=== PATIENT | female | born 1955 | race Caucasian/White ===

== ENCOUNTER → 2019-09-22 14:54 | Outpatient (BNVA) | payer MEDICARE, OTHER, SELFPAY | PROVIDERS: Family Provider Family Medicine; PCP Family Medicine; Visit Provider Nurse Practitioner Psychiatric/Mental Health | DX: F33.2 Major depressive disorder, recurrent severe without psychotic features (principal); F41.1 Generalized anxiety disorder; F17.210 Nicotine dependence, cigarettes, uncomplicated | CPT/HCPCS: 99214 ==

== ENCOUNTER 2019-10-05 14:01 | Observation (INO) | payer MEDICARE, OTHER, SELFPAY ==
[2019-10-05] VITALS (9 sets, daily range): BP systolic 142–165; BP diastolic 54–78; PULSE 95–107; RESP 16–22; TEMP 36.7–36.8; O2SAT 91–97; BMI 41.5
--- NOTE | 2019-10-05 14:08 | ED_ITS ---
Entered by Avelino Mondragon, acting as scribe for Long Lewis DO HPI - General Adult General: Chief complaint: General Medical Stated complaint: GEN WEAKNESS Time Seen by Provider: 10/05/19 14:12 History of Present Illness: HPI narrative: 63 yo female presents with general weakness. Pt states that she is a little short of breath. Pt states that she is tired as well. Pt states that she isn't normally using o2 but is requiring it at this time. Per EMS family told them that she is habing issues with her speech. Pt had a similar episode when she was on lyrica, pt was recently placed back on lyrica. Patient denies any productive cough has kind of a pursed lip breathing she states it is habit she was a little short of breath and when EMS seen her her oxygen sats were low started on 2 L/min. MD complaint: general weakness. Onset (ago): hour(s) Severity: moderate Quality: constant Relieving factors: none Exacerbating factors: none Associated symptoms: Reports dyspnea and weakness; Deny chest pain, malaise or rash Review of Systems Const: Denies: fever, chills, body aches, change in appetite, fatigue or malaise ENMT: Denies: throat pain, ear pain, nasal discharge or nasal congestion Card: Denies: chest pain, edema, shortness of breath on exertion or shortness of breath when lying down Resp: Reports: shortness of breath GI: Reports: abdominal pain : Denies: flank pain, difficulty urinating, painful urination, urinary frequency or urinary urgency Skin/Breast: Denies: rash or itching PFSH ED PFSH: Statuses (acute, chronic, etc) shown below reflect problem list status as previously entered and may not be historically accurate Medical History (Updated 10/05/19 @ 18:27 by Leeroy Ballard MD) Chronic pain (Acute) COPD (chronic obstructive pulmonary disease) (Acute) Diabetes (Acute) Generalized anxiety disorder (Acute) GERD (gastroesophageal reflux disease) (Acute) HTN (hypertension) (Acute) Hyperlipidemia (Acute) Major depressive disorder, recurrent severe without psychotic features (Acute) Nicotine dependence, cigarettes, uncomplicated (Acute) Peripheral neuropathy (Acute) Surgical History (Updated 10/05/19 @ 18:22 by Leeroy Ballard MD) Amputation of left great toe (Acute) Herniated gastric pouch, complication of bariatric surgery (Acute) History of ankle surgery (Acute) History of appendectomy (Acute) Family History Mother Diabetes Hypertension Other Stroke Social History Smoking and tobacco status: current every day smoker cigarettes Packs smoked per day: 1 Alcohol intake: current Alcohol intake frequency: holidays/special occasions only Substance/Drug Use: never Lives independently: Yes Household members: other Details: ROOMMATE Marital status: / Current occupational status: disabled History of recent travel: No Physical Exam Const: COMMON NORMALS: no apparent distress GENERAL APPEARANCE: cooperative and comfortable ORIENTATION/CONSCIOUSNESS: Yes awake, Yes oriented to person, Yes oriented to place and Yes oriented to time HENMT: COMMON NORMALS: normocephalic, head/scalp atraumatic, hearing grossly normal bilaterally, external ears normal, EAC's normal, TM's normal bilaterally, nasal mucous membranes and turbinates normal, moist oral mucous membranes and oropharynx normal HEAD & SCALP: normocephalic and atraumatic NOSE: nasal mucous membranes and turbinates normal EXTERNAL EAR: Yes external ears normal EXTERNAL AUDITORY CANAL: EAC's normal TYMPANIC MEMBRANE: TM's normal bilaterally Eye: COMMON NORMALS: PERRL, EOMs intact bilaterally, conjunctivae normal and no scleral icterus CONJUNCTIVA: Yes conjunctivae normal PUPIL: Yes PERRL Neck/C-Spine: COMMON NORMALS: full ROM, no lymphadenopathy, supple and no JVD Lymph: LYMPHATIC: no lymphadenopathy noted and no lymphedema noted Resp: COMMON NORMALS: normal respiratory effort, no retractions, no use of accessory muscles and clear to auscultation bilaterally AUSCULTATION: clear to auscultation bilaterally Cardio: COMMON NORMALS: no JVD, regular rate, regular rhythm and no murmurs RATE: regular rate RHYTHM: regular rhythm GI: COMMON NORMALS: soft to palpation and no hepatosplenomegaly AUSCULTATION: Yes normoactive bowel sounds PALPATION: Yes soft, No tender, No guarding and Yes no hepatosplenomegaly Extremity: COMMON NORMALS: normal to inspection, normal capillary refill, no clubbing, cyanosis or edema, no calf tenderness and no pedal edema Neuro: SENSORIUM/ORIENTATION: Yes oriented to person, Yes oriented to place and Yes oriented to time Skin: COMMON NORMALS: no rashes or lesions noted GENERAL SKIN EXAM: no rashes or lesions noted Course ED course: Patient has multiple risk factors and a high heart score. She also has an intermediate troponin. At this point I think she requires observation for further evaluation. She has relatively subtle symptoms with essentially only having a episodic shortness of breath. She does have poor R wave progression on her EKG but no other significant finding discussed with Dr. Salguero he will place her on observation for rule out. Vital Signs: Vital signs: Vital Signs Temperature 99.1 F 10/06/19 04:00 Pulse Rate 103 H 10/06/19 04:00 Respiratory Rate 20 H 10/06/19 04:00 Blood Pressure 150/72 10/06/19 04:00 Pulse Oximetry 91 10/06/19 04:00 [facility] - General Adult Lab Data: Labs: Lab Results 10/05/19 10/05/19 10/05/19 Range/Units 14:35 14:35 14:35 WBC 13.8 H (4.0-10.0) 10^3/ uL RBC 5.12 (4.1-5.3) 10^6/u L Hgb 15.5 H (11.5-15.3) g/dL Hct 49.2 H (37.0-47.0) % MCV 96.1 (81-99) fL MCH 30.3 (28.0-34.0) pg MCHC 31.5 (30.0-36.0) g/dL RDW 14.6 (12.1-15.1) % Plt Count 226 (130-400) 10^3/c mm MPV 10.2 (7.4-10.4) fL Neut % (Auto) 78.9 % Lymph % (Auto) 12.6 % [place] % (Auto) 7.5 % Eos % (Auto) 0.4 % Baso % (Auto) 0.3 % Neut # (Auto) 10.9 H (1.8-7.7) 10^3/u L Lymph # (Auto) 1.7 (0.8-4.8) 10^3/u L [place] # (Auto) 1.0 H (0.2-0.9) 10^3/u L Eos # (Auto) 0.1 (0.0-0.8) 10^3/u L Baso # (Auto) 0.0 (0.0-0.1) 10^3/u L Nucleated RBC % (a uto) 0 % Nucleated RBCs # 0.0 /100WBC Sodium 138 (136-145) mmol/L Potassium 4.9 (3.5-5.1) mmol/L Chloride 99 (98-107) mmol/L Carbon Dioxide 26 (22-29) mmol/L Anion Gap 17.9 (5-19) BUN 25 H (8-23) mg/dL Creatinine 1.1 H (0.5-0.9) mg/dL GFR Calculation 50.2 L (90-130) mL/min Glucose 263 H (65-115) mg/dL Calcium 10.4 (8.5-10.5) mg/dL Total Bilirubin 0.4 (0.15-1.2) mg/dL AST 15 (0-32) U/L ALT 14 (0-33) U/L Alkaline Phosphata se 83 (35-105) IU/L Troponin T Baselin e 33 H (0-10) ng/mL Troponin T 120 Min [place] (0-10) ng/mL Delta Troponin T (0-10) ABS# Total Protein 6.9 (6.6-8.7) g/dL Albumin 4.0 (3.5-5.2) g/dL Globulin 2.9 (1.3-4.6) g/dL Influenza Type A A g (Negative) POC Influenza B Ag (Negative) 10/05/19 10/05/19 Range/Units 14:45 16:22 WBC (4.0-10.0) 10^3/ uL RBC (4.1-5.3) 10^6/u L Hgb (11.5-15.3) g/dL Hct (37.0-47.0) % MCV (81-99) fL MCH (28.0-34.0) pg MCHC (30.0-36.0) g/dL RDW (12.1-15.1) % Plt Count (130-400) 10^3/c mm MPV (7.4-10.4) fL Neut % (Auto) % Lymph % (Auto) % [place] % (Auto) % Eos % (Auto) % Baso % (Auto) % Neut # (Auto) (1.8-7.7) 10^3/u L Lymph # (Auto) (0.8-4.8) 10^3/u L [place] # (Auto) (0.2-0.9) 10^3/u L Eos # (Auto) (0.0-0.8) 10^3/u L Baso # (Auto) (0.0-0.1) 10^3/u L Nucleated RBC % (a uto) % Nucleated RBCs # /100WBC Sodium (136-145) mmol/L Potassium (3.5-5.1) mmol/L Chloride (98-107) mmol/L Carbon Dioxide (22-29) mmol/L Anion Gap (5-19) BUN (8-23) mg/dL Creatinine (0.5-0.9) mg/dL GFR Calculation (90-130) mL/min Glucose (65-115) mg/dL Calcium (8.5-10.5) mg/dL Total Bilirubin (0.15-1.2) mg/dL AST (0-32) U/L ALT (0-33) U/L Alkaline Phosphata se (35-105) IU/L Troponin T Baselin e (0-10) ng/mL Troponin T 120 Min [place] 37.43 H (0-10) ng/mL Delta Troponin T 4.43 (0-10) ABS# Total Protein (6.6-8.7) g/dL Albumin (3.5-5.2) g/dL Globulin (1.3-4.6) g/dL Influenza Type A A g Negative (Negative) POC Influenza B Ag Negative (Negative) Discharge Plan Discharge Patient Disposition: Placed in Observation Admit Provider: Leeroy Ballard Clinical Impression: Acute dyspnea, Diabetes, Elevated troponin level Condition: Stable Referrals: Bonita Villasenor MD [Primary Care Provider] - Discharge Date/Time: 10/05/19 20:05 Coding Level of Care Code ED Product Technician for g Fwd Exam Problem Focused The documentation recorded by the Giancarlo simons Kialy, accurately reflects the service I personally performed and the decisions made by Debbie wagner Curtis L, DO Oct 05, 2019 14:01
--- NOTE | 2019-10-05 14:12 | ECG_ITS ---
Measurements Intervals [place] Rate: 96 P: 58 [place]: 176 QRS: -36 QRSD: 94 T: 75 QT: 338 QTc: 429 SINUS RHYTHM LEFT AXIS DEVIATION [QRS AXIS < -30] MINIMAL VOLTAGE CRITERIA FOR LVH, CONSIDER NORMAL VARIANT [MEETS CRITERIA IN OF: R(aVL), S(V1), R(V5), R(V5/V6)+S(V1)] ANTERIOR MYOCARDIAL INFARCTION , OF INDETERMINATE AGE [40+ ms Q WAVE AND/OR ST/T ABNORMALITY IN V3/V4] Compared to ECG 12/20/2018 19:14:55 No significant changes Electronically Signed On 10-05-2019 20:56:16 MAIL OFFICER by Rebecca Maldonado M.D. [id number]
--- NOTE | 2019-10-05 14:13 | XRR_ITS ---
PROCEDURE INFORMATION: Exam: XR Chest, 1 View Exam date and time: 10/05/2019 2:26 PM Age: 63 years old Clinical indication: Cough and dyspnea; Smoker's cough; Additional info: Dyspnea/cough TECHNIQUE: Imaging protocol: XR of the chest Views: 1 view. COMPARISON: CR Chest 1 [place] [id number] 12/20/2018 3:57 PM FINDINGS: Lungs: Somewhat reduced lung volumes with associated bronchovascular crowding. No confluent infiltrate evident. Pleural space: Unremarkable. No pleural effusion. No pneumothorax. Heart/Mediastinum: Mild cardiomegaly. Bones/joints: Unremarkable. XR/XR chest 1V portable [id number] IMPRESSION: Somewhat reduced lung volumes with associated bronchovascular crowding. No confluent infiltrate evident.
[2019-10-05 14:49] LABS: Basophils % 0.3 %; Eosinophils # 0.1 10^3/uL (0.0-0.8); Eosinophils % 0.4 %; Hematocrit 49.2 % (37.0-47.0); Hemoglobin 15.5 g/dL (11.5-15.3); Lymphocytes # 1.7 10^3/uL (0.8-4.8); Lymphocytes % 12.6 %; Mean Corpuscular HGB Conc 31.5 g/dL (30.0-36.0); Mean Corpuscular Hemoglobin 30.3 pg (28.0-34.0); Mean Corpuscular Volume 96.1 fL (81-99); Mean Platelet Volume 10.2 fL (7.4-10.4); Monocytes % 7.5 %; Neutrophils # 10.9 10^3/uL (1.8-7.7); Neutrophils % 78.9 %; Nucleated Red Blood Cells % 0 %; Platelet Count 226 10^3/cmm (130-400); Red Blood Count 5.12 10^6/uL (4.1-5.3); Red Cell Distribution Width 14.6 % (12.1-15.1); White Blood Count 13.8 10^3/uL (4.0-10.0)
[2019-10-05 15:02] LABS: Troponin(5th) Baseline 33 ng/mL (0-10)
[2019-10-05 15:03] LABS: Alanine Aminotransferase 14 U/L (0-33); Alkaline Phosphatase 83 IU/L (35-105); Anion Gap 17.9 (5-19); Aspartate Amino Transferase 15 U/L (0-32); Blood Urea Nitrogen 25 mg/dL (8-23); Calcium 10.4 mg/dL (8.5-10.5); Carbon Dioxide 26 mmol/L (22-29); Chloride 99 mmol/L (98-107); Creatinine Clr Calc Pharmacy 65.7468; Globulin 2.9 g/dL (1.3-4.6); Glomerular Filtration Rate 50.2 mL/min (90-130); Glucose 263 mg/dL (65-115); Potassium 4.9 mmol/L (3.5-5.1); Sodium 138 mmol/L (136-145); Total Bilirubin 0.4 mg/dL (0.15-1.2); Total Protein 6.9 g/dL (6.6-8.7)
[2019-10-05 15:27] LABS: Influenza A by IFA Negative (Negative); Influenza B by IFA Negative (Negative)
[2019-10-05] MEDS: ipratropium-albuterol 3 mL Neb INHALATION ×2 (15:36→21:55)
[2019-10-05] MEDS: azithromycin 500 MG in sodium chloride 0.9% 250 ML 250 MG IV (15:45)
[2019-10-05] MEDS: cefTRIAXone 1,000 MG in sodium chloride 0.9% (plus) 50 ML 100 MG IV (15:45)
--- NOTE | 2019-10-05 16:12 | ECG_ITS ---
Measurements Intervals [place] Rate: 98 P: 66 MS: 180 QRS: -24 QRSD: 97 T: 75 QT: 337 QTc: 431 SINUS RHYTHM POSSIBLE ANTERIOR MYOCARDIAL INFARCTION [30 ms Q WAVE IN V3/V4, OR R < 0.2 mV IN , OF INDETERMINATE AGE WARNING: DATA QUALITY MAY AFFECT INTERPRETATION Compared to ECG 12/20/2018 19:14:55 Left-axis deviation no longer present Myocardial infarct finding still present Electronically Signed On 10-05-2019 21:01:05 SERVICE DESK ANALYST by Rebecca Maldonado M.D. [id number]
[2019-10-05 16:55] LABS: Troponin 5 2HR 37.43 ng/mL (0-10); Troponin 5 2HR Delta 4.43 ABS# (0-10)
--- NOTE | 2019-10-05 18:16 | P.HP_ITS ---
Providers/Chief Complaint Primary Care Provider: Bonita Villasenor MD Chief Complaint: GEN WEAKNESS History of Present Illness Carol Bustos is a 63 year old female that presents to the emergency department with shortness of breath. She states she has been short of breath for the last several months. She denies any fevers or cough. She reports her lower extremities are swelling. She has had no chest discomfort. She reports she is more short of breath with exertion. She has had no nausea. She reports she feels overall weak. Review of Systems General: Reports: 10 or more systems reviewed and unremarkable except in HPI and below Const: Denies: fever or chills Eyes: Denies: blurry vision ENMT: Denies: throat pain Card: Reports: shortness of breath on exertion; Denies: chest pain Resp: Reports: shortness of breath; Denies: productive cough GI: Denies: abdominal pain : Denies: flank pain Musc: Reports: back pain Skin/Breast: Denies: rash Neuro: Denies: headache Psych: Reports: anxiety and depression Endo: Denies: excessive urination Christopher/Lymph: Denies: easy bruising All/Imm: Denies: hives Medications/Allergies Home Medications Medication Instructions Recorded Confirmed Last Taken Type Abilify 10 mg PO QAM 10/05/19 10/05/19 Unknown History Allergies Allergy/AdvReac Type Severity Reaction Status Date / Time No Known Allergies Allergy Verified 09/22/19 15:31 PFSH Acute PFSH: Statuses (acute, chronic, etc) shown below reflect problem list status as previously entered and may not be historically accurate Medical History (Updated 10/05/19 @ 18:27 by Leeroy Ballard MD) Chronic pain COPD (chronic obstructive pulmonary disease) Diabetes Generalized anxiety disorder GERD (gastroesophageal reflux disease) HTN (hypertension) Hyperlipidemia Major depressive disorder, recurrent severe without psychotic features Nicotine dependence, cigarettes, uncomplicated Peripheral neuropathy Surgical History (Updated 10/05/19 @ 18:22 by Lereoy Ballard MD) Amputation of left great toe Herniated gastric pouch, complication of bariatric surgery History of ankle surgery History of appendectomy Family History Mother Diabetes Hypertension Other Stroke Social History Smoking and tobacco status: current every day smoker cigarettes Packs smoked per day: 1 Alcohol intake: current Alcohol intake frequency: holidays/special occasions only Lives independently: Yes Household members: other Details: ROOMMATE Marital status: / Current occupational status: disabled History of recent travel: No Vitals/I&O/Wt Last Vital Signs Temp 98.0 F 10/05/19 14:07 Pulse 98 10/05/19 15:44 Resp 18 10/05/19 15:30 BP 142/72 10/05/19 14:07 Pulse Ox 95 10/05/19 15:30 Weight last 48 hrs Weight 113.398 kg Physical Exam Narrative: EXAM NARRATIVE: General exam demonstrates an obese white female, occasionally puffing her lips out when she breathes out, in no apparent distress HEENT: Conjunctive a are injected. Oropharynx is clear Neck is supple no lymphadenopathy or thyromegaly Cardiovascular regular rate and rhythm without murmur Lungs diminished breath sounds bilaterally. A few rhonchi are noted on the left Abdomen is soft with positive bowel sounds, no obvious organomegaly, obese was deferred Extremities 1+ edema bilaterally, no cyanosis or clubbing Neuro no focal deficits Skin no rash Data : 10/05/19 14:35 10/05/19 14:35 Other data: Previous echocardiogram in 2018 demonstrated 3/4 diastolic dysfunction and EF of 65% Troponin is 33, repeat 37 Influenza negative EKG demonstrates poor R wave progression with Q's anteriorly. Left axis deviation. Chest x-ray demonstrates crowding and no obvious infiltrate A&P Assessment and plan (1) Acute dyspnea: I think this is related to mild acute diastolic heart failure. Status: Acute Code(s): R06.00 - Dyspnea, unspecified (2) Elevated troponin level: Likely type II but with abnormal EKG demonstrating concern of previous anterior myocardial infarction, previous CTA demonstrating significant calcification nuclear stress test is appropriate in this diabetic with neuropathy. Arrange for Lexiscan sestami Status: Acute Code(s): R79.89 - Other specified abnormal findings of blood chemistry (3) Nicotine dependence, cigarettes, uncomplicated: Encourage cessation Status: Acute Code(s): F17.210 - Nicotine dependence, cigarettes, uncomplicated (4) Leukocytosis: Likely secondary to acute events. As of now no obvious infection is noted Status: Acute Code(s): D72.829 - Elevated white blood cell count, unspecified (5) Obesity: Encourage weight loss Status: Acute Code(s): E66.9 - Obesity, unspecified (6) Acute diastolic heart failure: Diuresis with Lasix 40 mg IV every 12 hours Check echocardiogram Status: Acute Code(s): I50.31 - Acute diastolic (congestive) heart failure Additional A&P Information COPD, no evidence for acute exacerbation. Will provide pulmonary toilet Type 2 diabetes, will provide sliding scale insulin GERD Depression/anxiety Hyperlipidemia Chronic pain Multiple other medical problems as outlined in past medical history DVT prophylaxis with Lovenox Full code Attestations Medical Necessity Statement*: Will need less than 2 midnight stay for evaluation and treatment of elevated troponin and dyspnea Coding Level of Care Code Acute Quality Assurance Advisor for Win Stewart Diagnoses Acute dyspnea R06.00 Elevated troponin level R79.89 Nicotine dependence, cigarettes, uncomplicated F17.210 Leukocytosis D72.829 Obesity E66.9 Acute diastolic heart failure I50.31
--- NOTE | 2019-10-05 20:12 | ECG_ITS ---
Measurements Intervals [place] Rate: 103 P: 67 [place]: 185 QRS: -33 QRSD: 98 T: 76 QT: 328 QTc: 431 SINUS TACHYCARDIA MARKED LEFT AXIS DEVIATION [QRS AXIS < -30] LEFT VENTRICULAR HYPERTROPHY AND ST-T CHANGE [VOLTAGE CRITERIA PLUS ST/T ABNORMALITY] POSSIBLE ANTERIOR MYOCARDIAL INFARCTION [30 ms Q WAVE IN V3/V4, OR R < 0.2 mV IN V4], OF INDETERMINATE AGE Compared to ECG 10/05/2019 15:50:27 Left-axis deviation now present Left ventricular hypertrophy now present ST (T wave) deviation now present Sinus rhythm no longer present Myocardial infarct finding still present Electronically Signed On 10-06-2019 20:42:02 POLICE DETENTION ATTENDANT by Jony Keene M.D. [id number]
[2019-10-05 20:48] LABS: Troponin 5 6HR 41.78 ng/L (0-10); Troponin 5 6HR Delta 8.78 ng/L (0-12)
[2019-10-05] MEDS: atorvastatin 40 mg Tablet 20 MG PO (21:13)
[2019-10-05] MEDS: aspirin 81 mg EC Tablet PO (21:13)
[2019-10-05] MEDS: enoxaparin 40 mg/0.4 mL Syringe SUBCUT (21:14)
[2019-10-05 21:23] LABS: Glucose Point of Care 233 mg/dL (70-110)
[2019-10-05 21:38] LABS: Add On to Lab Order(s) Added; NT Pro B Type Natriuretic Pept 137 pg/mL (0-125); Thyroid Stimulating Hormone 0.67 uIU/mL (0.27-4.20)
[2019-10-05] MEDS: FUROsemide 10 mg/mL SDV 4mL 40 MG IVP (21:40)
[2019-10-06] VITALS (9 sets, daily range): BP systolic 130–157; BP diastolic 68–79; PULSE 85–116; RESP 16–22; TEMP 36.8–37.3; O2SAT 86–95
[2019-10-06] MEDS: ipratropium-albuterol 3 mL Neb INHALATION ×2 (02:33→09:45)
[2019-10-06 05:21] LABS: Basophils % 0.3 %; Eosinophils # 0.1 10^3/uL (0.0-0.8); Eosinophils % 0.8 %; Hematocrit 45.9 % (37.0-47.0); Hemoglobin 14.8 g/dL (11.5-15.3); Lymphocytes % 13.2 %; Mean Corpuscular HGB Conc 32.2 g/dL (30.0-36.0); Mean Corpuscular Hemoglobin 30.2 pg (28.0-34.0); Mean Corpuscular Volume 93.7 fL (81-99); Mean Platelet Volume 10.7 fL (7.4-10.4); Monocytes % 6.9 %; Neutrophils # 11.7 10^3/uL (1.8-7.7); Neutrophils % 78.5 %; Nucleated Red Blood Cells % 0 %; Platelet Count 240 10^3/cmm (130-400); Red Cell Distribution Width 14.5 % (12.1-15.1); White Blood Count 14.9 10^3/uL (4.0-10.0)
[2019-10-06 05:47] LABS: Anion Gap 14.1 (5-19); Blood Urea Nitrogen 23 mg/dL (8-23); Calcium 10.7 mg/dL (8.5-10.5); Carbon Dioxide 30 mmol/L (22-29); Chloride 97 mmol/L (98-107); Glomerular Filtration Rate 63.2 mL/min (90-130); Glucose 318 mg/dL (65-115); Osmolality Calculated 293 mOsm/kg (285-295); Potassium 4.1 mmol/L (3.5-5.1); Sodium 137 mmol/L (136-145)
[2019-10-06] MEDS: ARIPiprazole 10 mg Tablet PO (06:07)
[2019-10-06] MEDS: venlafaxine ER (24HR) 150 mg Capsule PO (06:07)
[2019-10-06] MEDS: venlafaxine ER (24HR) 75 mg Capsule PO (06:07)
[2019-10-06] MEDS: HYDROcodone-acetaminophen 10-325 mg Tablet 1 TAB PO ×2 (06:08→10:58)
--- NOTE | 2019-10-06 06:28 | PC.NURSE ---
Patient came up from ER with a diet Dr. Medina. I spilled it in patient room at 2200 and there was nothing left. Patient stated she drank some at 0200. Therefore, stress test will not be able to be completed today.
[2019-10-06 06:35] LABS: Glucose Point of Care 304 mg/dL (70-110)
--- NOTE | 2019-10-06 06:56 | PC.NURSE ---
STRESS TEST NOTE This nurse called Med Surg at 0600 to see if the patient had been NPO since midnight and no caffeine intake for the last 12 hours. The female that answered the phone states to Shamir, the nurse, did you know 269 had a stress test . The voice in the background stated no . When questioned on her caffeine intake the voice in the background stated she's been drinking Diet Dr. Medina all night . This nurse told the female that answered the phone that we would have to cancel the Lexiscan sestamibi stress test today and to please notify Dr. Ballard. At 0606 Shamir, nurse, called this nurse and stated that the patient had not had caffeine intake since 2200 last night because the patient had spilled it on the floor and Shamir had cleaned it up and not given any more soda all night. This nurse reiterated to Shamir how important it was to know exactly when the last caffeine intake was. Shamir again stated the about statement. Kati Dueñas [employer], was notified that he could inject the patient after asking her in person about her caffeine intake through the night. At 0619 Kati Dueñas [employer], called this nurse from med surg and stated that the patient had a cup with a straw in it on the bedside table. Spenser asked her when she had drank last and what it was. The patient stated that her last drink was 0200 and that it was Diet Dr. Medina. This nurse told Spenser that the Lexiscan sestamibi stress test would have to be cancelled today due to caffeine intake. Pau Singh RN, then called Shamir on Med Surg and tole her that the Lexiscan sestamibi stress test would be cancelled and to make sure she let Dr. Ballard know. At [address]709 Dr. Ballard was notified by this nurse. He had not received a phone call from the Med Surg nurse. He requested that the Lexiscan sestamibi stress test be done at 1400 today as the patient was not able to do a treadmill stress test and was not a candidate for an outpatient test. Kati Chong [employer], was notified of the 1400 stress along with the CDL Nurse, Pau Singh RN. This nurse then called Med Surg and spoke with Gail. Gail was given orders to make the patient NPO except water. A voice mail was left on Dr. Tena phone.
[2019-10-06] MEDS: losartan 50 mg Tablet 100 MG PO (08:17)
[2019-10-06] MEDS: aspirin 81 mg EC Tablet PO (08:18)
[2019-10-06] MEDS: amlodipine 10 mg Tablet PO (08:18)
[2019-10-06] MEDS: montelukast sodium 10 mg Tablet PO (08:18)
[2019-10-06] MEDS: hydroCHLOROthiazide 25 mg Tablet PO (08:19)
[2019-10-06] MEDS: metoprolol tartrate 50 mg Tablet PO (08:19)
[2019-10-06] MEDS: FUROsemide 10 mg/mL SDV 4mL 40 MG IVP (08:20)
--- NOTE | 2019-10-06 11:08 | PM.DCS ---
Discharge Providers Date of Admission: 10/05/19 18:05 Date of Discharge: October 06, 2019 Attending Provider at Admission: Leeroy Ballard MD Attending Provider at Discharge: Leeroy Ballard MD Primary Care Provider: Bonita Villasenor MD Diagnoses at Discharge Discharge Diagnosis (1) Acute dyspnea: Status: Acute Problem details: Resolved (2) Elevated troponin level: Status: Acute Problem details: Outpatient stress test per patient request (3) Nicotine dependence, cigarettes, uncomplicated: Status: Acute Problem details: Counseled on cessation (4) Leukocytosis: Status: Acute Problem details: Follow-up CBC 1 week. (5) Obesity: Status: Acute Problem details: Unchanged (6) Acute diastolic heart failure: Status: Acute Problem details: Increase Lasix slightly to 20 mg Reason for Visit Reason for Visit: Reason For Visit: GEN WEAKNESS Hospital Course Discharge Summary: Carol is a 63-year-old white female who presents to the hospital through the ER. She reported she felt very weak, somewhat disoriented, and short of breath. During her work-up her troponin was slightly elevated. She was requiring a very small amount of oxygen. EKG demonstrated poor R wave progression so concern of cardiac disease was present. She was placed in an observation category and a nuclear stress test was ordered for the following day. The next day she reported she was back to baseline. Her boyfriend was present and reported she was back to baseline. They report she took a Lyrica yesterday, and that she has this reaction when she takes it. She takes it as needed and took about 300 mg thinking this might help her pain as she has this prescribed. She refused to do the stress test today, reporting she would do this as an outpatient only. She requested discharge and this was arranged. Risks and benefits of and/or disability were discussed. She was agreeable to getting a home oxygen evaluation prior to discharge. She denied any chest discomfort. She reported no shortness of breath. Physical Exam Narrative: EXAM NARRATIVE: Vascular regular in rhythm without murmur Lungs diminished breath sounds but clear Abdomen is soft with positive bowel sounds Extremities no cyanosis clubbing or edema Discharge Data Data Completed and Pending: Completed Studies During Hospitalization Category Date Time Status XR chest 1V kevin ble [id number] Stat Exams 10/05/19 14:13 Completed Pending at discharge Category Date Time Status Cardiac Stress Te st MIBI [Sestamibi Stress Test Reque st Exams 10/06/19 07:31 Ordered ] Routine Sestamibi Stress Test Request Routi ne Exams 10/05/19 20:51 Ordered Urinalysis Stat Lab 10/05/19 16:09 Uncollected CV echo complete* [id number] Routine Ultrasound 10/06/19 20:51 Taken Labs from last 24 hours 10/06/19 10/06/19 10/06/19 06:19 04:30 04:30 WBC 14.9 H RBC 4.90 Hgb 14.8 Hct 45.9 MCV 93.7 MCH 30.2 MCHC 32.2 RDW 14.5 Plt Count 240 MPV 10.7 H Neut % (Auto) 78.5 Lymph % (Auto) 13.2 [place] % (Auto) 6.9 Eos % (Auto) 0.8 Baso % (Auto) 0.3 Neut # (Auto) 11.7 H Lymph # (Auto) 2.0 [place] # (Auto) 1.0 H Eos # (Auto) 0.1 Baso # (Auto) 0.0 Nucleated RBC % (a uto) 0 Nucleated RBCs # 0.0 Sodium 137 Potassium 4.1 Chloride 97 L Carbon Dioxide 30 H Anion Gap 14.1 BUN 23 Creatinine 0.9 GFR Calculation 63.2 L Glucose 318 H POC Glucose 304 Calculated Osmolal ity 293 Calcium 10.7 H Total Bilirubin AST ALT Alkaline Phosphata se Troponin I 6 Hour Troponin I Hi Sens Del Troponin T Baselin e Troponin T 120 Min [place] Troponin T NT-Pro-B Natriuret Pep Total Protein Albumin Globulin TSH Influenza Type A A g POC Influenza B Ag 10/05/19 10/05/19 10/05/19 21:09 20:27 20:27 WBC RBC Hgb Hct MCV MCH MCHC RDW Plt Count MPV Neut % (Auto) Lymph % (Auto) [place] % (Auto) Eos % (Auto) Baso % (Auto) Neut # (Auto) Lymph # (Auto) [place] # (Auto) Eos # (Auto) Baso # (Auto) Nucleated RBC % (a uto) Nucleated RBCs # Sodium Potassium Chloride Carbon Dioxide Anion Gap BUN Creatinine GFR Calculation Glucose POC Glucose 233 Calculated Osmolal ity Calcium Total Bilirubin AST ALT Alkaline Phosphata se Troponin I 6 Hour 41.78 H Troponin I Hi Sens Del 8.78 Troponin T Baselin e Troponin T 120 Min [place] Troponin T NT-Pro-B Natriuret Pep 137 H Total Protein Albumin Globulin TSH 0.67 Influenza Type A A g POC Influenza B Ag 10/05/19 10/05/19 10/05/19 16:22 14:45 14:35 WBC RBC Hgb Hct MCV MCH MCHC RDW Plt Count MPV Neut % (Auto) Lymph % (Auto) [place] % (Auto) Eos % (Auto) Baso % (Auto) Neut # (Auto) Lymph # (Auto) [place] # (Auto) Eos # (Auto) Baso # (Auto) Nucleated RBC % (a uto) Nucleated RBCs # Sodium Potassium Chloride Carbon Dioxide Anion Gap BUN Creatinine GFR Calculation Glucose POC Glucose Calculated Osmolal ity Calcium Total Bilirubin AST ALT Alkaline Phosphata se Troponin I 6 Hour Troponin I Hi Sens Del Troponin T Baselin e 33 H Troponin T 120 Min [place] 37.43 H Delta Troponin T 4.43 NT-Pro-B Natriuret Pep Total Protein Albumin Globulin TSH Influenza Type A A g Negative POC Influenza B Ag Negative 10/05/19 10/05/19 14:35 14:35 WBC 13.8 H RBC 5.12 Hgb 15.5 H Hct 49.2 H MCV 96.1 MCH 30.3 MCHC 31.5 RDW 14.6 Plt Count 226 MPV 10.2 Neut % (Auto) 78.9 Lymph % (Auto) 12.6 [place] % (Auto) 7.5 Eos % (Auto) 0.4 Baso % (Auto) 0.3 Neut # (Auto) 10.9 H Lymph # (Auto) 1.7 [place] # (Auto) 1.0 H Eos # (Auto) 0.1 Baso # (Auto) 0.0 Nucleated RBC % (a uto) 0 Nucleated RBCs # 0.0 Sodium 138 Potassium 4.9 Chloride 99 Carbon Dioxide 26 Anion Gap 17.9 BUN 25 H Creatinine 1.1 H GFR Calculation 50.2 L Glucose 263 H POC Glucose Calculated Osmolal ity Calcium 10.4 Total Bilirubin 0.4 AST 15 ALT 14 Alkaline Phosphata se 83 Troponin I 6 Hour Troponin I Hi Sens Del Troponin T Baselin e Troponin T 120 Min [place] Troponin T NT-Pro-B Natriuret Pep Total Protein 6.9 Albumin 4.0 Globulin 2.9 TSH Influenza Type A A g POC Influenza B Ag Vitals: Last Vital Signs Temp 98.2 F 10/06/19 10:57 Pulse 88 10/06/19 10:57 Resp 18 10/06/19 10:57 BP 133/79 10/06/19 10:57 Pulse Ox 92 10/06/19 10:57 Discharge Plan Discharge Patient Disposition: Home, Self-Care Condition: Stable Prescriptions: New furosemide [Lasix] 20 mg tablet 20 mg PO DAILY Qty: 30 RF: 0 Continued venlafaxine [Effexor XR] 150 mg capsule,extended release 24hr 150 mg PO QAM RF: 0 venlafaxine [Effexor XR] 75 mg capsule,extended release 24hr 75 mg PO QAM RF: 0 trazodone 100 mg tablet 100 mg PO .COMPLEX RF: 0 metformin 500 mg tablet extended release 24 hr 1,000 mg PO DAILY RF: 0 atorvastatin 10 mg tablet 10 mg PO DAILY RF: 0 amlodipine 10 mg tablet 10 mg PO DAILY RF: 0 losartan-hydrochlorothiazide 100-25 mg tablet 1 tab PO DAILY RF: 0 metoprolol tartrate 50 mg tablet 50 mg PO DAILY RF: 0 potassium chloride 10 mEq tablet extended release 10 meq PO DAILY RF: 0 aspirin [Adult Low Dose Aspirin] 81 mg tablet,delayed release (DR/EC) 81 mg PO QDAY RF: 0 montelukast [Singulair] 10 mg tablet 10 mg PO DAILY RF: 0 Humulin N NPH U-100 Insulin 100 unit/mL suspension See Rx Instructions SUBCUT BID RF: 0 insulin lispro [Humalog U-100 Insulin] 100 unit/mL solution See Rx Instructions SUBCUT TID RF: 0 Toujeo Max U-300 SoloStar 300 unit/mL (3 mL) insulin pen 100 unit SUBCUT .QHS RF: 0 Bydureon 2 mg/0.65 mL pen injector 2 mg SUBCUT .WEEKLY RF: 0 hydrocodone-acetaminophen 10-325 mg tablet 1 tab PO QID PRN (Reason: Pain) RF: 0 Abilify 10 mg tablet 10 mg PO QAM RF: 0 Discontinued pregabalin [Lyrica] 300 mg capsule 300 mg PO BID RF: 0 furosemide [Lasix] 20 mg tablet 10 mg PO DAILY RF: 0 Other Ambulatory Orders: Sestamibi Stress Test Request (Routine) Timeframe: 1 Week Facility: [facility] - Location: Cardiac Diagnostic Laboratory Ordered By: Leeroy Ballard Referrals: Bonita Villasenor MD [Primary Care Provider] - 1-3 days (CBC, BMP 1 week through primary care provider Arranging outpatient nuclear stress test, report to primary care provider) Discharge Diet: Diabetic Discharge Activity: Resume usual activity Activity Restrictions/Additional Instructions: No smoking. Did not take Lyrica. Keep follow-up for outpatient nuclear stress test. Follow-up with your primary care provider for results. Home oxygen evaluation prior to discharge. 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
--- NOTE | 2019-10-06 11:12 | PC.NURSE ---
Pt refused test Notified by DR Ballard that pt is refusing stress test today and wants done as outpatient. Stress test cancelled for today.
[2019-10-06 11:37] LABS: Glucose Point of Care 400 mg/dL (70-110)
--- NOTE | 2019-10-06 12:44 | DCPLANNER ---
[employer] Etcher went into the room to set up 02 for this pt. Both pt and Spouse states that she already has it and has for a couple of years. Spouse adds that she has everything she needs, neither knew the company. They can't remember but states that it was set up for her when she was d/c'd from the hospital in [place] awwyle back.
--- NOTE | 2019-10-06 12:53 | PC.CHAP ---
Pastoral Care Encounter/Spiritual Assessment Type of Contact [] Declined horse trekking guide visit [] Patient/Family/Request visit [] Outpatient visit [] Follow-up visit [] Physician referral [] Code/Alert [x] Routine visit [] Staff referral [] Actively dying [] Patient sleeping [] Family support [] [] Out of room [] Palliative care [] [] Receiving care in room [] Pre-surgical visit [] Trauma [] Long length of stay [] ICU visit [] Other: Relational/Emotional Strength [x] Patient feels connected with others/family/visitors/staff [] Distress [] Loneliness/isolation [] Abandonment Spirituality of Patient [x] Person of Tamie [x] Attends Congregation of their Tamie [x] Believes in Prayer [x] Reads Bible or Restoration materials [] There are Spiritual issues to be addressed Fraud Prevention Analyst Interventions [x] Prayer [x] Active listening [x] Non-anxious presence [x] Spiritual/emotional support [] Crisis/trauma care [x] Spiritual counseling [] Bereavement support [] Provided bereavement packet [] Provided Bible/devotional materials [] Provided toy/stuffed animal, coloring book to patient or family member [] Provided Communion [] Anointing/[place] [] Salvation [] Completed spiritual assessment [] Other: Impact on Illness or Injury [] Angry [] Fearful [] Anxious [] Often cries [] Exhaustion [] Unable to work [] Unable to attend faith [] Unable to walk/stand [] Unable to read [] Unable to drive [] Unable to eat/drink [] Unable to sleep [] Unable to be with family [] Patient intubated [x] Other: n/a Summary Patient was in attendance with her Max. Time spent with patient
--- NOTE | 2019-10-06 16:28 | PC.SOCIAL ---
DME Oxygen Was called by MICHELINE Donovan about oxygen. She tells MICHELINE Hand Casemanager that patient already has oxygen at home, so Peace calls HOME. HOME tells her they do not have patient on their services. I spoke with patient and she says that she has had oxygen in the past but does not know which company she has it with. I called [employer] and they do not. I called [facility] and Siobhan tells me that she remembers having patient on services in the past when she worked with [facility]. Patient signs a choice sheet and would like set up with [facility] since she knows Siobhan. She tells me that she will call [facility] once home to come pickling operator their equipment. Referral faxed to Siobhan at [facility], and she is going to have someone bring her over a portable tank.
--- NOTE | 2019-10-06 17:15 | PC.NURSE ---
Discharge instructions given per the physician's orders. Patient verbalized understanding and did not have any further questions.
--- NOTE | 2019-10-06 20:51 | USCV_ITS ---
Carol Bustos Age: 63 Gender: F : 1955 Exam Date: 10/06/2019 06:13 Ordering Phys: Leeroy Ballard MD Technologist: Joseph Lisa Exam Location: [facility] [place] Indication: CHF BP: 124 / 72 HR: 101 Rhythm: Sinus Technical Quality: MEASUREMENTS (Male / Female) Normal Values 2D ECHO LV Diastolic Diameter PLAX 4.6 cm 4.2 - 5.9 / 3.9 - 5.3 cm LV Systolic Diameter PLAX 2.8 cm IVS Diastolic Thickness 0.7 cm 0.6 - 1.0 / 0.6 - 0.9 cm IVS Systolic Thickness 1.1 cm LVPW Diastolic Thickness 1.0 cm 0.6 - 1.0 / 0.6 - 0.9 cm LVPW Systolic Thickness 1.4 cm LVOT Diameter 2.1 cm LV Ejection Fraction 2D Teich 70.8 % LV Ejection Fraction MOD 2C 69.7 % LV Ejection Fraction 2C AL 69.0 % LA Diameter 3.8 cm LA Width 4.0 cm LA Height 5.5 cm RA Width 4.1 cm RA Height 4.6 cm M-MODE LV Diastolic Diameter MM 4.4 cm 4.2 - 5.9 / 3.9 - 5.3 cm LV Systolic Diameter MM 3.4 cm LV Ejection Fraction MM Teich 47.7 % IVS Diastolic Thickness MM 0.9 cm 0.6 - 1.0 / 0.6 - 0.9 cm IVS Systolic Thickness MM 1.1 cm LVPW Diastolic Thickness MM 1.1 cm 0.6 - 1.0 / 0.6 - 0.9 cm LVPW Systolic Thickness MM 1.6 cm RV Diastolic Diameter MM 1.6 cm Aortic Annulus Diameter 3.3 cm LA Ao Ratio MM 1.2 MV E Point Septal Separation 0.9 cm DOPPLER AV Peak Velocity 165.0 cm/s LVOT Peak Velocity 182.0 cm/s AV Area Cont Eq vti 3.2 cm squared AV Area Cont Eq pk 3.8 cm squared MV Area PHT 5.0 cm squared Mitral E to A Ratio 0.5 MV E' Velocity 6.0 cm/s Mitral E to MV E' Ratio 13.4 Mitral E to LV E' Lateral Ratio 17.2 Mitral E to LV E' Septal Ratio 11.1 TR Peak Velocity 172.0 cm/s TR Peak Gradient 11.8 mmHg TV Peak E Velocity 101.0 cm/s Right Atrial Pressure 3.0 mmHg Pulmonary Artery Systolic Pressu 14.8 mmHg PV Peak Velocity 166.0 cm/s FINDINGS Left Ventricle Normal left ventricular cavity size. Mildly decreased left ventricular systolic function. No regional wall motion abnormalities. Left ventricular ejection fraction is estimated at 65 %. Grade I/IV diastolic dysfunction (abnormal relaxation filling pattern), normal to mildly elevated filling pressures. Right Ventricle The right ventricle is normal in size and function. Right Atrium The right atrium is normal in size. Left Atrium The left atrium is normal in size. Mitral Valve Moderately thickened mitral valve. Moderate mitral annular calcification. No mitral valve stenosis. No mitral valve regurgitation. Aortic Valve Structurally normal aortic valve without significant sclerosis or stenosis. There is no aortic regurgitation. Tricuspid Valve Structurally normal tricuspid valve without significant stenosis or regurgitation. Pulmonary artery systolic pressure is normal. Pulmonic Valve Structurally normal pulmonic valve without significant stenosis. There is no pulmonic regurgitation. Pericardium Normal pericardium without effusion. Aorta Normal ascending aorta dimension. CONCLUSIONS 1-Normal left ventricular cavity size. Mildly decreased left ventricular systolic function. No regional wall motion abnormalities. Left ventricular ejection fraction is estimated at 65 %. Grade I/IV diastolic dysfunction (abnormal relaxation filling pattern), normal to mildly elevated filling pressures. 2-Moderately thickened mitral valve. Moderate mitral annular calcification. No mitral valve stenosis. No mitral valve regurgitation. 3-There is no pericardial effusion. 4-Right atrial pressure is around 5 mm of mercury. 5-when compared to the prior echocardiogram dated 03/23/2018 there appeared to be in improvement in the diastolic function which has improved from grade 3 to grade 1 now. Jony Keene MD (Electronically Signed) Final Date: 06 October 2019 17:23 S
== END 2019-10-06 17:28 | disposition home or self-care (01) ==
LOC: ER 18:02 → MEDSURG 19:11
PROVIDERS: Admitting Provider Internal Medicine; Emergency Provider Family Medicine; Family Provider Family Medicine; PCP Family Medicine; Visit Provider Internal Medicine
DX: R06.00 Dyspnea, unspecified (principal); R79.89 Other specified abnormal findings of blood chemistry; F17.210 Nicotine dependence, cigarettes, uncomplicated; D72.829 Elevated white blood cell count, unspecified; E66.9 Obesity, unspecified; Z68.41 Body mass index [BMI] 40.0-44.9, adult; I11.0 Hypertensive heart disease with heart failure; I50.31 Acute diastolic (congestive) heart failure; E11.40 Type 2 diabetes mellitus with diabetic neuropathy, unspecified; J44.9 Chronic obstructive pulmonary disease, unspecified; K21.9 Gastro-esophageal reflux disease without esophagitis; E78.5 Hyperlipidemia, unspecified; F41.9 Anxiety disorder, unspecified; F32.9 Major depressive disorder, single episode, unspecified; Z82.49 Family history of ischemic heart disease and other diseases of the circulatory system; Z83.3 Family history of diabetes mellitus
CPT/HCPCS: 12345; 36415; 36416; 71045; 80048; 80053; 82962; 83880; 84443; 84484; 85025; 87804; 93005; 93306; 94640; 96365; 96368; 96372; 96375; 99283; 99285; G0378; J0456; J0696; J1650; J1815; J1940; J7050

== ENCOUNTER → 2019-10-12 13:08 | Outpatient (BNVA) | payer MEDICARE, OTHER, SELFPAY | PROVIDERS: Family Provider Family Medicine; PCP Family Medicine; Visit Provider Anesthesiology | DX: G89.29 Other chronic pain (principal); M79.671 Pain in right foot; M79.672 Pain in left foot; M51.36 Other intervertebral disc degeneration, lumbar region; F17.290 Nicotine dependence, other tobacco product, uncomplicated; Z79.891 Long term (current) use of opiate analgesic; Z71.6 Tobacco abuse counseling | CPT/HCPCS: 99214 ==

== ENCOUNTER → 2019-12-20 08:14 | Outpatient (BNVA) | payer MEDICARE, OTHER, SELFPAY | PROVIDERS: Family Provider Family Medicine; PCP Family Medicine; Visit Provider Nurse Practitioner Psychiatric/Mental Health | DX: F33.2 Major depressive disorder, recurrent severe without psychotic features (principal); F41.1 Generalized anxiety disorder; F17.210 Nicotine dependence, cigarettes, uncomplicated; F10.21 Alcohol dependence, in remission | CPT/HCPCS: 99213 ==

== ENCOUNTER → 2020-02-01 08:12 | Outpatient (BNVA) | payer MEDICARE, OTHER, SELFPAY | PROVIDERS: Family Provider Family Medicine; PCP Family Medicine; Visit Provider Nurse Practitioner Psychiatric/Mental Health | DX: F33.2 Major depressive disorder, recurrent severe without psychotic features (principal); F41.1 Generalized anxiety disorder; F17.210 Nicotine dependence, cigarettes, uncomplicated | CPT/HCPCS: 99213 ==

== ENCOUNTER → 2020-02-22 14:45 | Outpatient (BNVA) | payer MEDICARE, OTHER, SELFPAY | PROVIDERS: Family Provider Family Medicine; PCP Family Medicine; Visit Provider Anesthesiology | DX: G89.29 Other chronic pain (principal); M51.36 Other intervertebral disc degeneration, lumbar region; M79.671 Pain in right foot; M79.672 Pain in left foot; F17.210 Nicotine dependence, cigarettes, uncomplicated; Z79.891 Long term (current) use of opiate analgesic; Z71.6 Tobacco abuse counseling | CPT/HCPCS: 99214 ==

== ENCOUNTER 2020-03-28 22:03 | Emergency (ER) | payer MEDICARE, OTHER, SELFPAY ==
--- NOTE | 2020-03-28 22:08 | XRR_ITS ---
PROCEDURE INFORMATION: Exam: XR Chest, 1 View Exam date and time: 03/28/2020 10:24 PM Age: 64 years old Clinical indication: Other: Weakness TECHNIQUE: Imaging protocol: XR of the chest Views: 1 view. COMPARISON: CR XR chest 1V portable [id number] 10/05/2019 2:33 PM FINDINGS: Lungs: Interstitial prominence and chronic granulomatous disease. Pleural space: Mild pleural thickening, without a dependent pleural effusion. Heart/Mediastinum: No cardiomegaly. Bones/joints: Degenerative change. When correlating with the previous study, no significant interval changes are present. XR/XR chest 1V portable [id number] IMPRESSION: Stable appearance of the chest, not significantly changed from 10/05/19.
--- NOTE | 2020-03-28 22:09 | ECG_ITS ---
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 Measurements Intervals [place] Rate: 87 P: 50 DC: 206 QRS: -27 QRSD: 100 T: 84 QT: 359 QTc: 434 Interpretive Statements SINUS RHYTHM LEFT VENTRICULAR HYPERTROPHY AND ST-T CHANGE [VOLTAGE CRITERIA PLUS ST/T ABNORMALITY] Left axis deviation POSSIBLE ANTERIOR MYOCARDIAL INFARCTION , OF INDETERMINATE AGE [30 ms Q WAVE IN V3/V4, OR R < 0.2 mV IN V4] Compared to ECG 10/05/2019 21:48:48 Sinus tachycardia no longer present Left-axis deviation no longer present ST (T wave) deviation still present Myocardial infarct finding still present Electronically Signed On 03-29-2020 21:06:02 CDT by Rebecca Maldonado M.D. [email or web address]
--- NOTE | 2020-03-28 22:10 | ED_ITS ---
Documented by User: CRESCENCIO Phillips 03/29/20 02:24 HPI - Weakness General: Stated complaint: WEAKNESS Time Seen by Provider: 03/28/20 22:08 Source: patient Mode of arrival: ambulatory Limitations: no limitations History of Present Illness: HPI Narrative: Patient comes in today with complaints of anxiety, needing oxygen, and weakness. Patient reports this morning she was sitting on the toilet and suddenly felt weak and passed out. Patient since then has been kind of short of breath all day. Patient also complains of some midepigastric abdominal pain, and constipation. Patient has a history of diabetes, COPD, CAD. Patient reported that she had a sudden onset of anxiety with need of oxygen. Patient reports some abdominal pain but no s ignificant chest pain. Patient also reports blood in stool for the past 2 to 3 months. MD Complaint: generalized weakness Review of Systems General: Reports: 10 or more systems reviewed and unremarkable except in HPI and below Const: Reports: other (weak) [facility] ED PFSH: Medical History (Updated 03/29/20 @ 05:07 by Lesvia Sibley) Chronic low back pain Chronic pain COPD (chronic obstructive pulmonary disease) DDD (degenerative disc disease), lumbar Diabetes Diastolic heart failure Encounter for long-term opiate analgesic use Generalized anxiety disorder GERD (gastroesophageal reflux disease) HTN (hypertension) Hyperlipidemia Long-term current use of opiate analgesic Lower extremity edema Major depressive disorder, recurrent severe without psychotic features Nicotine dependence, cigarettes, uncomplicated Pain management contract signed Peripheral neuropathy Surgical History Amputation of left great toe Herniated gastric pouch, complication of bariatric surgery History of ankle surgery History of appendectomy Hx of appendectomy Hx of hernia repair Family History Mother Diabetes Hypertension Other Stroke Social History Smoking and tobacco status: current every day smoker cigarettes Packs smoked per day: 1 Second hand smoke exposure: Yes Alcohol intake: never Lives independently: Yes Household members: other Details: ROOMMATE Marital status: / Current occupational status: disabled History of recent travel: No Physical Exam Const: COMMON NORMALS: no acute distress and patient oriented x3 GENERAL APPEARANCE: cooperative HENMT: COMMON NORMALS: normocephalic, TM's normal bilaterally and Normal external nose present HEAD & SCALP: normal to inspection and normocephalic NOSE: Normal external nose present TYMPANIC MEMBRANE: TM's normal bilaterally MOUTH: Normal oral and palatal mucosa present THROAT: posterior oropharynx normal Eye: GENERAL EYE: appearance normal, both eyes and all related structures Neck/C-Spine: COMMON NORMALS: full ROM Lymph: LYMPHATIC: no lymphadenopathy noted Chest: COMMONS NORMALS: normal inspection of the chest Resp: COMMON NORMALS: normal respiratory effort EFFORT & INSPECTION: Yes able to speak in complete sentences AUSCULTATION: diminished lung sounds Cardio: COMMON NORMALS: regular rate and regular rhythm RATE: regular rate RHYTHM: regular rhythm GI: COMMON NORMALS: non-tender RECTAL EXAM: heme positive stool, External hemorrhoid(s) present, Excoriation present (GI) and other : COMMON NORMALS: Yes no CVA tenderness BLADDER/KIDNEY EXAM: Yes no CVA tenderness Back/Pelvis: COMMON NORMALS: no CVA tenderness and thoracic and lumbar spine normal to inspection Extremity: NARRATIVE EXTREMITY EXAM: Bilateral lower extremity swelling. Amputated left great toe. Neuro: COMMON NORMALS: patient oriented x3 and moves all extremities Psych: COMMON NORMALS: mental status grossly normal and cooperative Skin: COMMON NORMALS: no rashes or lesions noted GENERAL SKIN EXAM: no rashes or lesions noted Course ED course: 49, patient has a noted bilateral pulmonary emboli with some mild right heart strain. I reviewed this with Dr. Sibley and he recommended we get a BNP and then talk to the fieldwork coordinator for further recommendations of treatment. [id number], discussed abnormal bleeding from the rectum with Dr. Sibley, continue to await BNP result. Dr. Sibley will assume care of patient for admission to the hospitalist, or transfer. Vital Signs: Vital signs: Vital Signs Pulse Rate 90 03/29/20 04:32 Respiratory Rate 18 03/29/20 04:32 Blood Pressure 128/49 03/29/20 04:32 Pulse Oximetry 96 03/29/20 04:32 MDM - Weakness Lab Data: Labs: Lab Results 03/28/20 03/28/20 03/28/20 Range/Units 00:40 22:50 22:50 WBC 12.8 H (4.0-10.0) 10^3/ uL RBC 4.88 (4.1-5.3) 10^6/u L Hgb 14.9 (11.5-15.3) g/dL Hct 46.9 (37.0-47.0) % MCV 96.1 (81-99) fL MCH 30.5 (28.0-34.0) pg MCHC 31.8 (30.0-36.0) g/dL RDW 13.2 (12.1-15.1) % Plt Count 240 (130-400) 10^3/c mm MPV 10.6 H (7.4-10.4) fL Neut % (Auto) 77.5 % Lymph % (Auto) 10.6 % [place] % (Auto) 6.9 % Eos % (Auto) 3.8 % Baso % (Auto) 0.5 % Neut # (Auto) 9.94 H (1.8-7.7) 10^3/u L Lymph # (Auto) 1.4 (0.8-4.8) 10^3/u L [place] # (Auto) 0.9 (0.2-0.9) 10^3/u L Eos # (Auto) 0.5 (0.0-0.8) 10^3/u L Baso # (Auto) 0.1 (0.0-0.1) 10^3/u L Nucleated RBC % (a uto) 0 % Nucleated RBCs # 0.0 /100WBC Specimen Type Arterial Sample Site Radial, right ABG pH 7.37 (7.35-7.45) ABG pCO2 58.1 H (35-45) mmHg ABG pO2 53.8 L (80.0-100.0) mmH g ABG HCO3 33.3 H (22-26) mmol/L ABG Base Excess 6.1 H (-2.0-2.0) mmol/ L Rigoberto Test Pos Hematocrit 42.3 (37-47) % O2 Delivery Device Nc Building Insulation Installer ID ellpe Sodium 135 L (136-145) mmol/L Potassium 4.3 (3.5-5.1) mmol/L Chloride 96 L (98-107) mmol/L Carbon Dioxide 30 H (22-29) mmol/L Anion Gap 13.3 (5-19) BUN 18 (8-23) mg/dL Creatinine 1.1 H (0.5-0.9) mg/dL GFR Calculation 50.0 L (90-130) mL/min Glucose 98 (65-115) mg/dL POC Glucose (70-110) mg/dL Calculated Osmolal ity 276 L (285-295) mOsm/k g Lactic Acid (0.5-2.2) mmol/L Calcium 9.6 (8.5-10.5) mg/dL Total Bilirubin 0.2 (0.15-1.2) mg/dL AST 18 (0-32) U/L ALT 10 (0-33) U/L Alkaline Phosphata se 94 (35-105) IU/L Troponin T Baselin e (0-10) ng/L Troponin T 120 Min rampart (0-10) ng/L Delta Troponin T (0-10) ABS# Troponin T Hi Sens 6Hr (0-10) ng/L Troponin T Hi Sens 6Hr Delta (0-12) ng/L NT-Pro-B Natriuret Pep (0-125) pg/mL Total Protein 7.8 (6.6-8.7) g/dL Albumin 3.7 (3.5-5.2) g/dL Globulin 4.1 (1.3-4.6) g/dL Urine Color (Yellow) Urine Appearance (CLEAR) Urine pH (5-7) Ur Specific Gravit y (1.005-1.030) Urine Protein (Negative) Urine Glucose (UA) (Normal) Urine Ketones (Negative) Urine Blood (Negative) Urine Nitrate (Negative) Urine Bilirubin (NEGATIVE) Urine Urobilinogen (Negative) mg/dL Ur Leukocyte Lida ase (Negative) Urine RBC (0-2) /hpf Urine WBC (0-5) /hpf Ur Squamous Epith Cells (0-5) Amorphous Sediment Urine Bacteria (NONE) 03/28/20 03/28/20 03/28/20 Range/Units 22:50 22:50 22:50 WBC (4.0-10.0) 10^3/ uL RBC (4.1-5.3) 10^6/u L Hgb (11.5-15.3) g/dL Hct (37.0-47.0) % MCV (81-99) fL MCH (28.0-34.0) pg MCHC (30.0-36.0) g/dL RDW (12.1-15.1) % Plt Count (130-400) 10^3/c mm MPV (7.4-10.4) fL Neut % (Auto) % Lymph % (Auto) % [place] % (Auto) % Eos % (Auto) % Baso % (Auto) % Neut # (Auto) (1.8-7.7) 10^3/u L Lymph # (Auto) (0.8-4.8) 10^3/u L [place] # (Auto) (0.2-0.9) 10^3/u L Eos # (Auto) (0.0-0.8) 10^3/u L Baso # (Auto) (0.0-0.1) 10^3/u L Nucleated RBC % (a uto) % Nucleated RBCs # /100WBC Specimen Type Sample Site ABG pH (7.35-7.45) ABG pCO2 (35-45) mmHg ABG pO2 (80.0-100.0) mmH g ABG HCO3 (22-26) mmol/L ABG Base Excess (-2.0-2.0) mmol/ L Rigoberto Test Hematocrit (37-47) % O2 Delivery Device Building Insulation Installer ID Sodium (136-145) mmol/L Potassium (3.5-5.1) mmol/L Chloride (98-107) mmol/L Carbon Dioxide (22-29) mmol/L Anion Gap (5-19) BUN (8-23) mg/dL Creatinine (0.5-0.9) mg/dL GFR Calculation (90-130) mL/min Glucose (65-115) mg/dL POC Glucose (70-110) mg/dL Calculated Osmolal ity (285-295) mOsm/k g Lactic Acid 1.0 (0.5-2.2) mmol/L Calcium (8.5-10.5) mg/dL Total Bilirubin (0.15-1.2) mg/dL AST (0-32) U/L ALT (0-33) U/L Alkaline Phosphata se (35-105) IU/L Troponin T Baselin e 33 H (0-10) ng/L Troponin T 120 Min rampart (0-10) ng/L Delta Troponin T (0-10) ABS# Troponin T Hi Sens 6Hr (0-10) ng/L Troponin T Hi Sens 6Hr Delta (0-12) ng/L NT-Pro-B Natriuret Pep 51 (0-125) pg/mL Total Protein (6.6-8.7) g/dL Albumin (3.5-5.2) g/dL Globulin (1.3-4.6) g/dL Urine Color (Yellow) Urine Appearance (CLEAR) Urine pH (5-7) Ur Specific Gravit y (1.005-1.030) Urine Protein (Negative) Urine Glucose (UA) (Normal) Urine Ketones (Negative) Urine Blood (Negative) Urine Nitrate (Negative) Urine Bilirubin (NEGATIVE) Urine Urobilinogen (Negative) mg/dL Ur Leukocyte Lida ase (Negative) Urine RBC (0-2) /hpf Urine WBC (0-5) /hpf Ur Squamous Epith Cells (0-5) Amorphous Sediment Urine Bacteria (NONE) 03/29/20 03/29/20 03/29/20 Range/Units 00:25 01:15 03:43 WBC (4.0-10.0) 10^3/ uL RBC (4.1-5.3) 10^6/u L Hgb (11.5-15.3) g/dL Hct (37.0-47.0) % MCV (81-99) fL MCH (28.0-34.0) pg MCHC (30.0-36.0) g/dL RDW (12.1-15.1) % Plt Count (130-400) 10^3/c mm MPV (7.4-10.4) fL Neut % (Auto) % Lymph % (Auto) % [place] % (Auto) % Eos % (Auto) % Baso % (Auto) % Neut # (Auto) (1.8-7.7) 10^3/u L Lymph # (Auto) (0.8-4.8) 10^3/u L [place] # (Auto) (0.2-0.9) 10^3/u L Eos # (Auto) (0.0-0.8) 10^3/u L Baso # (Auto) (0.0-0.1) 10^3/u L Nucleated RBC % (a uto) % Nucleated RBCs # /100WBC Specimen Type Sample Site ABG pH (7.35-7.45) ABG pCO2 (35-45) mmHg ABG pO2 (80.0-100.0) mmH g ABG HCO3 (22-26) mmol/L ABG Base Excess (-2.0-2.0) mmol/ L Rigoberto Test Hematocrit (37-47) % O2 Delivery Device Building Insulation Installer ID Sodium (136-145) mmol/L Potassium (3.5-5.1) mmol/L Chloride (98-107) mmol/L Carbon Dioxide (22-29) mmol/L Anion Gap (5-19) BUN (8-23) mg/dL Creatinine (0.5-0.9) mg/dL GFR Calculation (90-130) mL/min Glucose (65-115) mg/dL POC Glucose (70-110) mg/dL Calculated Osmolal ity (285-295) mOsm/k g Lactic Acid (0.5-2.2) mmol/L Calcium (8.5-10.5) mg/dL Total Bilirubin (0.15-1.2) mg/dL AST (0-32) U/L ALT (0-33) U/L Alkaline Phosphata se (35-105) IU/L Troponin T Baselin e (0-10) ng/L Troponin T 120 Min rampart 32.21 H (0-10) ng/L Delta Troponin T -0.79 L (0-10) ABS# Troponin T Hi Sens 6Hr 30.90 H (0-10) ng/L Troponin T Hi Sens 6Hr Delta -2.10 L (0-12) ng/L NT-Pro-B Natriuret Pep (0-125) pg/mL Total Protein (6.6-8.7) g/dL Albumin (3.5-5.2) g/dL Globulin (1.3-4.6) g/dL Urine Color Red (Yellow) Urine Appearance Cloudy (CLEAR) Urine pH 7 (5-7) Ur Specific Gravit y 1.010 (1.005-1.030) Urine Protein Neg (Negative) Urine Glucose (UA) Norm (Normal) Urine Ketones Negative (Negative) Urine Blood 3+ H (Negative) Urine Nitrate Negative (Negative) Urine Bilirubin Neg (NEGATIVE) Urine Urobilinogen Norm (Negative) mg/dL Ur Leukocyte Lida ase Negative (Negative) Urine RBC >100 H (0-2) /hpf Urine WBC 10-15 H (0-5) /hpf Ur Squamous Epith Cells 0-4 H (0-5) Amorphous Sediment Not Reportable Urine Bacteria 1+ H (NONE) 03/29/20 03/29/20 Range/Units 03:43 04:49 WBC (4.0-10.0) 10^3/ uL RBC (4.1-5.3) 10^6/u L Hgb (11.5-15.3) g/dL Hct (37.0-47.0) % MCV (81-99) fL MCH (28.0-34.0) pg MCHC (30.0-36.0) g/dL RDW (12.1-15.1) % Plt Count 198 (130-400) 10^3/c mm MPV (7.4-10.4) fL Neut % (Auto) % Lymph % (Auto) % [place] % (Auto) % Eos % (Auto) % Baso % (Auto) % Neut # (Auto) (1.8-7.7) 10^3/u L Lymph # (Auto) (0.8-4.8) 10^3/u L [place] # (Auto) (0.2-0.9) 10^3/u L Eos # (Auto) (0.0-0.8) 10^3/u L Baso # (Auto) (0.0-0.1) 10^3/u L Nucleated RBC % (a uto) % Nucleated RBCs # /100WBC Specimen Type Sample Site ABG pH (7.35-7.45) ABG pCO2 (35-45) mmHg ABG pO2 (80.0-100.0) mmH g ABG HCO3 (22-26) mmol/L ABG Base Excess (-2.0-2.0) mmol/ L Rigoberto Test Hematocrit (37-47) % O2 Delivery Device Building Insulation Installer ID Sodium (136-145) mmol/L Potassium (3.5-5.1) mmol/L Chloride (98-107) mmol/L Carbon Dioxide (22-29) mmol/L Anion Gap (5-19) BUN (8-23) mg/dL Creatinine (0.5-0.9) mg/dL GFR Calculation (90-130) mL/min Glucose (65-115) mg/dL POC Glucose 69 (70-110) mg/dL Calculated Osmolal ity (285-295) mOsm/k g Lactic Acid (0.5-2.2) mmol/L Calcium (8.5-10.5) mg/dL Total Bilirubin (0.15-1.2) mg/dL AST (0-32) U/L ALT (0-33) U/L Alkaline Phosphata se (35-105) IU/L Troponin T Baselin e (0-10) ng/L Troponin T 120 Min rampart (0-10) ng/L Delta Troponin T (0-10) ABS# Troponin T Hi Sens 6Hr (0-10) ng/L Troponin T Hi Sens 6Hr Delta (0-12) ng/L NT-Pro-B Natriuret Pep (0-125) pg/mL Total Protein (6.6-8.7) g/dL Albumin (3.5-5.2) g/dL Globulin (1.3-4.6) g/dL Urine Color (Yellow) Urine Appearance (CLEAR) Urine pH (5-7) Ur Specific Gravit y (1.005-1.030) Urine Protein (Negative) Urine Glucose (UA) (Normal) Urine Ketones (Negative) Urine Blood (Negative) Urine Nitrate (Negative) Urine Bilirubin (NEGATIVE) Urine Urobilinogen (Negative) mg/dL Ur Leukocyte Lida ase (Negative) Urine RBC (0-2) /hpf Urine WBC (0-5) /hpf Ur Squamous Epith Cells (0-5) Amorphous Sediment Urine Bacteria (NONE) EKG Data^: EKG 1: Attestation: I personally reviewed and interpreted this EKG as follows: (2229, sinus rhythm with a regular rate at 87 bpm, left ventricular hypertrophy, possible anterior myocardial infarction of indeterminate age, similar to previous EKG from September 2019, some artifact is noted on the EKG.) EKG 2: Attestation: I personally reviewed and interpreted this EKG as follows: (00 25, sinus rhythm regular rate at 86 bpm, nonspecific T wave abnormality, no ST elevation, no ectopy.) Discharge Plan Discharge Patient Disposition: Xfer Short-Term Hosp Clinical Impression: Pulmonary emboli, Acute GI bleeding, Syncope, COPD (chronic obstructive pulmonary disease) Condition: Stable Prescriptions: No Action Colace Clear 50 mg capsule 50 mg PO DAILY RF: 0 hydrocodone-acetaminophen 10-325 mg tablet 1 tab PO .5 times a day PRN (Reason: pain) 30 Days Qty: 150 RF: 0 metoprolol tartrate 50 mg tablet 50 mg PO DAILY RF: 0 furosemide 40 mg tablet 40 mg PO BID 90 Days Qty: 180 RF: 3 potassium chloride 20 mEq tablet extended release 20 meq PO BID Qty: 180 RF: 3 metformin 500 mg tablet extended release 24 hr 1,000 mg PO DAILY RF: 0 atorvastatin 10 mg tablet 10 mg PO DAILY RF: 0 amlodipine 10 mg tablet 10 mg PO DAILY RF: 0 losartan-hydrochlorothiazide 100-25 mg tablet 1 tab PO DAILY RF: 0 aspirin [Adult Low Dose Aspirin] 81 mg tablet,delayed release (DR/EC) 81 mg PO QDAY RF: 0 montelukast [Singulair] 10 mg tablet 10 mg PO DAILY RF: 0 Humulin N NPH U-100 Insulin 100 unit/mL suspension See Rx Instructions SUBCUT BID RF: 0 insulin lispro [Humalog U-100 Insulin] 100 unit/mL solution See Rx Instructions SUBCUT TID RF: 0 Toujeo Max U-300 SoloStar 300 unit/mL (3 mL) insulin pen 100 unit SUBCUT .QHS RF: 0 Bydureon 2 mg/0.65 mL pen injector 2 mg SUBCUT .WEEKLY RF: 0 hydrocodone-acetaminophen 10-325 mg tablet 1 tab PO .five daily PRN (Reason: pain) 30 Days Qty: 150 RF: 0 Hold Instructions: Home Medication placed on hold at Doctor's office Abilify 10 mg tablet 10 mg PO QAM Qty: 90 RF: 2 venlafaxine [Effexor XR] 75 mg capsule,extended release 24hr 75 mg PO QAM Qty: 90 RF: 2 venlafaxine [Effexor XR] 150 mg capsule,extended release 24hr 150 mg PO QAM Qty: 90 RF: 2 trazodone 100 mg tablet 200 mg PO .bedtime PRN (Reason: sleep) Qty: 180 RF: 2 hydrocodone-acetaminophen 10-325 mg tablet 1 tab PO .5 times a day 30 Days Qty: 150 RF: 0 isosorbide mononitrate 30 mg tablet extended release 24 hr 30 mg PO DAILY Qty: 90 RF: 3 Referrals: Bonita Villasenor MD [Primary Care Provider] - Sign Out Sign Out Data: Patient Sign Out occurred on 03/29/20 at 01:53. Patient's care was discussed, and care was transferred from Bryan Mcgarry to Lesvia Sibley. Sign Out Comment: transfer of care for admission Last updated by Bryan Mcgarry FNP at 03/29/20 01:30 Coding Level of Care Code ED Tread Cutter for Chg Fwd Exam Comprehensive Documented by User: Lesvia Sibley 03/29/20 05:07 HPI - Weakness General: Stated complaint: WEAKNESS Time Seen by Provider: 03/28/20 22:08 PFSH ED PFSH: Medical History (Updated 03/29/20 @ 05:07 by Lesvia Sibley) Chronic low back pain Chronic pain COPD (chronic obstructive pulmonary disease) DDD (degenerative disc disease), lumbar Diabetes Diastolic heart failure Encounter for long-term opiate analgesic use Generalized anxiety disorder GERD (gastroesophageal reflux disease) HTN (hypertension) Hyperlipidemia Long-term current use of opiate analgesic Lower extremity edema Major depressive disorder, recurrent severe without psychotic features Nicotine dependence, cigarettes, uncomplicated Pain management contract signed Peripheral neuropathy Surgical History Amputation of left great toe Herniated gastric pouch, complication of bariatric surgery History of ankle surgery History of appendectomy Hx of appendectomy Hx of hernia repair Family History Mother Diabetes Hypertension Other Stroke Social History Smoking and tobacco status: current every day smoker cigarettes Packs smoked p er day: 1 Second hand smoke exposure: Yes Alcohol intake: never Lives independently: Yes Household members: other Details: ROOMMATE Marital status: / Current occupational status: disabled History of recent travel: No Course Vital Signs: Vital signs: Vital Signs Pulse Rate 90 03/29/20 04:32 Respiratory Rate 18 03/29/20 04:32 Blood Pressure 128/49 03/29/20 04:32 Pulse Oximetry 96 03/29/20 04:32 MDM - Weakness MDM Narrative: Medical decision making narrative: Carol is a 64-year-old female who comes in with a syncopal spell while on the toilet. She did have a significant amount of blood present. She is Hemoccult positive here. The patient CT scan shows extensive pulmonary emboli with a heavy clot burden. There is sign of heart strain on the CT scan but no sign of heart strain on echo per Dr. Maldonado. I reviewed the case in full with Dr. Connor at [facility] the lacquer machine feeder. As there is no sign of heart strain she does not believe the patient is a clot directed TPA candidate. I reviewed the case with Cee Roy as both Dr. Ortiz and Dr. Ballard here felt the patient should be transferred to a higher level of care secondary to the GI bleeding, the need of anticoagulation and the heavy clot burden. As the patient is not a candidate for clot directed TPA the case was reviewed with Dr. Rueda and she will accept the patient to stepdown there. We currently have no ICU beds available here and we have no stepdown beds available either. Currently the patient is hemodynamically stable on a heparin drip. The heparin bolus and drip was given secondary to the ability to turn this off and reverse if necessary should there be a complication of bleeding. The patient agrees with transfer at this time. Lab Data: Attestation: I reviewed the patient's lab results. Labs: Lab Results 03/28/20 03/28/20 03/28/20 Range/Units 00:40 22:50 22:50 WBC 12.8 H (4.0-10.0) 10^3/ uL RBC 4.88 (4.1-5.3) 10^6/u L Hgb 14.9 (11.5-15.3) g/dL Hct 46.9 (37.0-47.0) % MCV 96.1 (81-99) fL MCH 30.5 (28.0-34.0) pg MCHC 31.8 (30.0-36.0) g/dL RDW 13.2 (12.1-15.1) % Plt Count 240 (130-400) 10^3/c mm MPV 10.6 H (7.4-10.4) fL Neut % (Auto) 77.5 % Lymph % (Auto) 10.6 % [place] % (Auto) 6.9 % Eos % (Auto) 3.8 % Baso % (Auto) 0.5 % Neut # (Auto) 9.94 H (1.8-7.7) 10^3/u L Lymph # (Auto) 1.4 (0.8-4.8) 10^3/u L [place] # (Auto) 0.9 (0.2-0.9) 10^3/u L Eos # (Auto) 0.5 (0.0-0.8) 10^3/u L Baso # (Auto) 0.1 (0.0-0.1) 10^3/u L Nucleated RBC % (a uto) 0 % Nucleated RBCs # 0.0 /100WBC Specimen Type Arterial Sample Site Radial, right ABG pH 7.37 (7.35-7.45) ABG pCO2 58.1 H (35-45) mmHg ABG pO2 53.8 L (80.0-100.0) mmH g ABG HCO3 33.3 H (22-26) mmol/L ABG Base Excess 6.1 H (-2.0-2.0) mmol/ L Rigoberto Test Pos Hematocrit 42.3 (37-47) % O2 Delivery Device Nc Building Insulation Installer ID ellpe Sodium 135 L (136-145) mmol/L Potassium 4.3 (3.5-5.1) mmol/L Chloride 96 L (98-107) mmol/L Carbon Dioxide 30 H (22-29) mmol/L Anion Gap 13.3 (5-19) BUN 18 (8-23) mg/dL Creatinine 1.1 H (0.5-0.9) mg/dL GFR Calculation 50.0 L (90-130) mL/min Glucose 98 (65-115) mg/dL POC Glucose (70-110) mg/dL Calculated Osmolal ity 276 L (285-295) mOsm/k g Lactic Acid (0.5-2.2) mmol/L Calcium 9.6 (8.5-10.5) mg/dL Total Bilirubin 0.2 (0.15-1.2) mg/dL AST 18 (0-32) U/L ALT 10 (0-33) U/L Alkaline Phosphata se 94 (35-105) IU/L Troponin T Baselin e (0-10) ng/L Troponin T 120 Min rampart (0-10) ng/L Delta Troponin T (0-10) ABS# Troponin T Hi Sens 6Hr (0-10) ng/L Troponin T Hi Sens 6Hr Delta (0-12) ng/L NT-Pro-B Natriuret Pep (0-125) pg/mL Total Protein 7.8 (6.6-8.7) g/dL Albumin 3.7 (3.5-5.2) g/dL Globulin 4.1 (1.3-4.6) g/dL Urine Color (Yellow) Urine Appearance (CLEAR) Urine pH (5-7) Ur Specific Gravit y (1.005-1.030) Urine Protein (Negative) Urine Glucose (UA) (Normal) Urine Ketones (Negative) Urine Blood (Negative) Urine Nitrate (Negative) Urine Bilirubin (NEGATIVE) Urine Urobilinogen (Negative) mg/dL Ur Leukocyte Lida ase (Negative) Urine RBC (0-2) /hpf Urine WBC (0-5) /hpf Ur Squamous Epith Cells (0-5) Amorphous Sediment Urine Bacteria (NONE) 03/28/20 03/28/20 03/28/20 Range/Units 22:50 22:50 22:50 WBC (4.0-10.0) 10^3/ uL RBC (4.1-5.3) 10^6/u L Hgb (11.5-15.3) g/dL Hct (37.0-47.0) % MCV (81-99) fL MCH (28.0-34.0) pg MCHC (30.0-36.0) g/dL RDW (12.1-15.1) % Plt Count (130-400) 10^3/c mm MPV (7.4-10.4) fL Neut % (Auto) % Lymph % (Auto) % [place] % (Auto) % Eos % (Auto) % Baso % (Auto) % Neut # (Auto) (1.8-7.7) 10^3/u L Lymph # (Auto) (0.8-4.8) 10^3/u L [place] # (Auto) (0.2-0.9) 10^3/u L Eos # (Auto) (0.0-0.8) 10^3/u L Baso # (Auto) (0.0-0.1) 10^3/u L Nucleated RBC % (a uto) % Nucleated RBCs # /100WBC Specimen Type Sample Site ABG pH (7.35-7.45) ABG pCO2 (35-45) mmHg ABG pO2 (80.0-100.0) mmH g ABG HCO3 (22-26) mmol/L ABG Base Excess (-2.0-2.0) mmol/ L Rigoberto Test Hematocrit (37-47) % O2 Delivery Device Building Insulation Installer ID Sodium (136-145) mmol/L Potassium (3.5-5.1) mmol/L Chloride (98-107) mmol/L Carbon Dioxide (22-29) mmol/L Anion Gap (5-19) BUN (8-23) mg/dL Creatinine (0.5-0.9) mg/dL GFR Calculation (90-130) mL/min Glucose (65-115) mg/dL POC Glucose (70-110) mg/dL Calculated Osmolal ity (285-295) mOsm/k g Lactic Acid 1.0 (0.5-2.2) mmol/L Calcium (8.5-10.5) mg/dL Total Bilirubin (0.15-1.2) mg/dL AST (0-32) U/L ALT (0-33) U/L Alkaline Phosphata se (35-105) IU/L Troponin T Baselin e 33 H (0-10) ng/L Troponin T 120 Min [place] (0-10) ng/L Delta Troponin T (0-10) ABS# Troponin T Hi Sens 6Hr (0-10) ng/L Troponin T Hi Sens 6Hr Delta (0-12) ng/L NT-Pro-B Natriuret Pep 51 (0-125) pg/mL Total Protein (6.6-8.7) g/dL Albumin (3.5-5.2) g/dL Globulin (1.3-4.6) g/dL Urine Color (Yellow) Urine Appearance (CLEAR) Urine pH (5-7) Ur Specific Gravit y (1.005-1.030) Urine Protein (Negative) Urine Glucose (UA) (Normal) Urine Ketones (Negative) Urine Blood (Negative) Urine Nitrate (Negative) Urine Bilirubin (NEGATIVE) Urine Urobilinogen (Negative) mg/dL Ur Leukocyte Lida ase (Negative) Urine RBC (0-2) /hpf Urine WBC (0-5) /hpf Ur Squamous Epith Cells (0-5) Amorphous Sediment Urine Bacteria (NONE) 03/29/20 03/29/20 03/29/20 Range/Units 00:25 01:15 03:43 WBC (4.0-10.0) 10^3/ uL RBC (4.1-5.3) 10^6/u L Hgb (11.5-15.3) g/dL Hct (37.0-47.0) % MCV (81-99) fL MCH (28.0-34.0) pg MCHC (30.0-36.0) g/dL RDW (12.1-15.1) % Plt Count (130-400) 10^3/c mm MPV (7.4-10.4) fL Neut % (Auto) % Lymph % (Auto) % [place] % (Auto) % Eos % (Auto) % Baso % (Auto) % Neut # (Auto) (1.8-7.7) 10^3/u L Lymph # (Auto) (0.8-4.8) 10^3/u L [place] # (Auto) (0.2-0.9) 10^3/u L Eos # (Auto) (0.0-0.8) 10^3/u L Baso # (Auto) (0.0-0.1) 10^3/u L Nucleated RBC % (a uto) % Nucleated RBCs # /100WBC Specimen Type Sample Site ABG pH (7.35-7.45) ABG pCO2 (35-45) mmHg ABG pO2 (80.0-100.0) mmH g ABG HCO3 (22-26) mmol/L ABG Base Excess (-2.0-2.0) mmol/ L Rigoberto Test Hematocrit (37-47) % O2 Delivery Device Building Insulation Installer ID Sodium (136-145) mmol/L Potassium (3.5-5.1) mmol/L Chloride (98-107) mmol/L Carbon Dioxide (22-29) mmol/L Anion Gap (5-19) BUN (8-23) mg/dL Creatinine (0.5-0.9) mg/dL GFR Calculation (90-130) mL/min Glucose (65-115) mg/dL POC Glucose (70-110) mg/dL Calculated Osmolal ity (285-295) mOsm/k g Lactic Acid (0.5-2.2) mmol/L Calcium (8.5-10.5) mg/dL Total Bilirubin (0.15-1.2) mg/dL AST (0-32) U/L ALT (0-33) U/L Alkaline Phosphata se (35-105) IU/L Troponin T Baselin e (0-10) ng/L Troponin T 120 Min rampart 32.21 H (0-10) ng/L Delta Troponin T -0.79 L (0-10) ABS# Troponin T Hi Sens 6Hr 30.90 H (0-10) ng/L Troponin T Hi Sens 6Hr Delta -2.10 L (0-12) ng/L NT-Pro-B Natriuret Pep (0-125) pg/mL Total Protein (6.6-8.7) g/dL Albumin (3.5-5.2) g/dL Globulin (1.3-4.6) g/dL Urine Color Red (Yellow) Urine Appearance Cloudy (CLEAR) Urine pH 7 (5-7) Ur Specific Gravit y 1.010 (1.005-1.030) Urine Protein Neg (Negative) Urine Glucose (UA) Norm (Normal) Urine Ketones Negative (Negative) Urine Blood 3+ H (Negative) Urine Nitrate Negative (Negative) Urine Bilirubin Neg (NEGATIVE) Urine Urobilinogen Norm (Negative) mg/dL Ur Leukocyte Lida ase Negative (Negative) Urine RBC >100 H (0-2) /hpf Urine WBC 10-15 H (0-5) /hpf Ur Squamous Epith Cells 0-4 H (0-5) Amorphous Sediment Not Reportable Urine Bacteria 1+ H (NONE) 03/29/20 03/29/20 Range/Units 03:43 04:49 WBC (4.0-10.0) 10^3/ uL RBC (4.1-5.3) 10^6/u L Hgb (11.5-15.3) g/dL Hct (37.0-47.0) % MCV (81-99) fL MCH (28.0-34.0) pg MCHC (30.0-36.0) g/dL RDW (12.1-15.1) % Plt Count 198 (130-400) 10^3/c mm MPV (7.4-10.4) fL Neut % (Auto) % Lymph % (Auto) % [place] % (Auto) % Eos % (Auto) % Baso % (Auto) % Neut # (Auto) (1.8-7.7) 10^3/u L Lymph # (Auto) (0.8-4.8) 10^3/u L [place] # (Auto) (0.2-0.9) 10^3/u L Eos # (Auto) (0.0-0.8) 10^3/u L Baso # (Auto) (0.0-0.1) 10^3/u L Nucleated RBC % (a uto) % Nucleated RBCs # /100WBC Specimen Type Sample Site ABG pH (7.35-7.45) ABG pCO2 (35-45) mmHg ABG pO2 (80.0-100.0) mmH g ABG HCO3 (22-26) mmol/L ABG Base Excess (-2.0-2.0) mmol/ L Rigoberto Test Hematocrit (37-47) % O2 Delivery Device Building Insulation Installer ID Sodium (136-145) mmol/L Potassium (3.5-5.1) mmol/L Chloride (98-107) mmol/L Carbon Dioxide (22-29) mmol/L Anion Gap (5-19) BUN (8-23) mg/dL Creatinine (0.5-0.9) mg/dL GFR Calculation (90-130) mL/min Glucose (65-115) mg/dL POC Glucose 69 (70-110) mg/dL Calculated Osmolal ity (285-295) mOsm/k g Lactic Acid (0.5-2.2) mmol/L Calcium (8.5-10.5) mg/dL Total Bilirubin (0.15-1.2) mg/dL AST (0-32) U/L ALT (0-33) U/L Alkaline Phosphata se (35-105) IU/L Troponin T Baselin e (0-10) ng/L Troponin T 120 Min rampart (0-10) ng/L Delta Troponin T (0-10) ABS# Troponin T Hi Sens 6Hr (0-10) ng/L Troponin T Hi Sens 6Hr Delta (0-12) ng/L NT-Pro-B Natriuret Pep (0-125) pg/mL Total Protein (6.6-8.7) g/dL Albumin (3.5-5.2) g/dL Globulin (1.3-4.6) g/dL Urine Color (Yellow) Urine Appearance (CLEAR) Urine pH (5-7) Ur Specific Gravit y (1.005-1.030) Urine Protein (Negative) Urine Glucose (UA) (Normal) Urine Ketones (Negative) Urine Blood (Negative) Urine Nitrate (Negative) Urine Bilirubin (NEGATIVE) Urine Urobilinogen (Negative) mg/dL Ur Leukocyte Lida ase (Negative) Urine RBC (0-2) /hpf Urine WBC (0-5) /hpf Ur Squamous Epith Cells (0-5) Amorphous Sediment Urine Bacteria (NONE) Imaging Data^: CTA Chest with Abdomen Pelvis: Radiologist's impression: [place] [address] CT Scan Report Signed Patient: Carol Bustos Unit #: [id number] : 1955 Age/Sex: 64 / F ADM Date: 03/28/20 Loc: ER Room/Bed: Attending Dr: Ordering Provider/Ordering MD: Bryan Mcgarry NP Date of Service: 03/28/20 Procedure(s): CT angio chest w abd pel w con Accession Number(s): [id number] Report Number: [id number] PROCEDURE INFORMATION: Exam: CT Angiography Chest With Contrast Exam date and time: 03/28/2020 11:37 PM Age: 64 years old Clinical indication: Nausea; Abdominal pain; Generalized; Cough and shortness of breath; Chest pain; Type not specified; Additional info: Shortness of breath, abd pain TECHNIQUE: Imaging protocol: Computed tomographic angiography of the chest with intravenous contrast. Sagittal and coronal reformatted images were created and reviewed. 3D rendering: MIP and/or 3D reconstructed images were created by the technologist. Radiation optimization: All CT scans at this facility use at least one of these dose optimization techniques: automated exposure control; mA and/or kV adjustment per patient size (includes targeted exams where dose is matched to clinical indication); or iterative reconstruction. Contrast material: VISI; Contrast volume: 95 ml; Contrast route: INTRAVENOUS (IV); COMPARISON: CTA Chest-Pulmonary Emb [id number] 03/23/2018 11:10 AM RADIATION DOSE METRICS: Total DLP (mGy-cm): 2374.68 FINDINGS: Pulmonary arteries: Occlusive pulmonary embolus in the posterior segmental branch and subsegmental branches of the right upper lobe pulmonary artery. Nonocclusive pulmonary emboli in the superior segmental branch of the right lower lobe pulmonary artery. Embolus in the distal left pulmonary artery with occlusive and nonocclusive emboli extending into virtually all segmental and subsegmental branches of the left upper, lingular, and lower lobe pulmonary arteries. Aorta: Moderate atherosclerotic changes in the visualized arteries. No evidence for aortic aneurysm. Lungs: Tracheobronchial structures are patent. Incidental note of an accessory bronchus off the distal trachea extending into the right upper lobe. Findings are stable. Patchy atelectasis in the right and left lower lobes. Calcified granulomas in both lungs. Noncalcified nodule in the right upper lobe with an average measurement of 3 mm (series 4, image 26). Pleural space: No pneumothorax. No pleural effusion. Heart: Stable mild enlargement of the heart. Stable calcification of the aortic valve. Moderate atherosclerotic calcification in the coronary arteries. The RV/LV ratio is 1.2, which is elevated. There is flattened appearance of the interventricular septum. Findings raise suspicion for right heart strain. Mediastinal space: The esophagus is unremarkable. No mediastinal hematoma. No pneumomediastinum. Lymph nodes: No lymphadenopathy. Stable partially calcified lymph nodes in the mediastinum and right and left brigitte. Bones/joints: Multilevel degenerative changes of varying severity in the visualized spine. Mild kyphosis. Soft tissues: No acute abnormality in the extrathoracic soft tissues. IMPRESSION: 1. Occlusive pulmonary embolus in the posterior segmental branch and subsegmental branches of the right upper lobe pulmonary artery. Nonocclusive pulmonary emboli in the superior segmental branch of the right lower lobe pulmonary artery. Embolus in the distal left pulmonary artery with occlusive and nonocclusive emboli extending into virtually all segmental and subsegmental branches of the left upper, lingular, and lower lobe pulmonary arteries. 2. The RV/LV ratio is 1.2, which is elevated. There is flattened appearance of the interventricular septum. Findings raise suspicion for right heart strain. 3. Patchy atelectasis in the right and left lower lobes. 4. Noncalcified nodule in the right upper. Findings are stable dating back to 03/23/2018. Stability would indicate this is due to a benign process such as a noncalcified granuloma. 5. Incidental/nonacute findings are listed in the report. COMMENTS: THIS REPORT CONTAINS FINDINGS THAT MAY BE CRITICAL TO PATIENT CARE. The findings were verbally communicated via telephone conference with Bryan Flores at 12:45 AM CDT on 03/29/2020. The findings were acknowledged and understood. PROCEDURE INFORMATION: Exam: CT Abdomen And Pelvis With Contrast Exam date and time: 03/28/2020 11:37 PM Age: 64 years old Clinical indication: Nausea; Abdominal pain; Generalized; Cough and shortness of breath; Chest pain; Type not specified; Additional info: Shortness of breath, abd pain TECHNIQUE: Imaging protocol: Computed tomography of the abdomen and pelvis with intravenous contrast. Sagittal and coronal reformatted images were created and reviewed. Radiation optimization: All CT scans at this facility use at least one of these dose optimization techniques: automated exposure control; mA and/or kV adjustment per patient size (includes targeted exams where dose is matched to clinical indication); or iterative reconstruction. Contrast material: VISI; Contrast volume: 95 ml; Contrast route: INTRAVENOUS (IV); COMPARISON: CT abdomen pelvis w con* [id number] 12/06/2014 3:19:49 PM RADIATION DOSE METRICS: Total DLP (mGy-cm): 2374.68 FINDINGS: Liver: The liver is unremarkable. Gallbladder and bile ducts: The gallbladder is unremarkable. No biliary ductal dilatation. Pancreas: The pancreas is unremarkable. No pancreatic ductal dilatation. Spleen: The spleen is unremarkable. Adrenals: The right and left adrenal glands are unremarkable. Kidneys and ureters: The right and left kidneys are unremarkable. The right and left ureters are unremarkable. Stomach and bowel: No acute abnormality in the stomach. No acute abnormality in the small bowel. Numerous diverticula in the descending colon and sigmoid colon. No evidence for diverticulitis. Increased fecal content in the colon. Postsurgical changes in the cecum. Appendix: Appendix not definitely visualized. No inflammatory changes in the pericecal region however. Intraperitoneal space: No free intraperitoneal air. No ascites. No loculated fluid collections to suggest an abscess. Vasculature: Moderate atherosclerotic changes in the visualized arteries. No evidence for aortic aneurysm or aortic dissection. Hepatic veins, portal veins, splenic vein, and SMV are patent. Lymph nodes: Multiple enlarged lymph nodes in the retroperitoneum and along the right and left iliac trains. These are new compared with the previous study. Prominent lymph nodes are also seen in the right and left groin. The largest measures 3.3 x 2.2 cm (series 3, image 81). Bladder: Unremarkable as visualized. Reproductive: Enlarged, bulky uterus with multiple intrauterine fibroids. The uterus has increased in size and now measures 14.6 x 12.2 x 13.3 cm (series 606, image 58 and series 3, image 65). The largest fibroid has increased in size and now measures 5.9 x 8.0 x 7.1 cm (series 606, image 58 and series 3, image 72). Some fibroids show evidence of necrosis. The ovaries are not definitely visualized, not an expected in a postmenopausal female. This is likely due to ovarian atrophy. Bones/joints: Degenerative changes in the spine and hips. Moderate spinal canal stenosis at L3-L4. Mild spinal canal stenosis at L1-L2 and L5-S1. Soft tissues: Subcutaneous inflammation over the anterior abdomen, suspicious for cellulitis. CT/CT angio chest w abd pel w con IMPRESSION: 1. Subcutaneous inflammation over the anterior abdomen, suspicious for cellulitis. Recommend clinical correlation. 2. Enlarged, bulky uterus with multiple intrauterine fibroids. Some fibroid show evidence of necrosis. The uterus and at least the largest fibroid have also increased in size. 3. Descending colon and sigmoid colon diverticulosis. No evidence for diverticulitis. 4. Interval development of retroperitoneal and bilateral iliac lymphadenopathy. Recommend clinical correlation as a metastatic process cannot be ruled out. COMMENTS: Urgent results were discussed with Bryan Flores on 03/29/2020 at 1:02 AM CDT. Radiation Dose CTDIVOL = (mGy): DLP = 2374.68 2374.68 (mGy-cm) Dictated By: Shayy Davidson MD Signed By: Shayy Davidson MD Signed Date/Time: 03/29/20103 DD/ 1 EKG Data^: EKG 3: Attestation: I personally reviewed and interpreted this EKG as follows: EKG interpretation date: 03/29/20 EKG interpretation time: 04:20 Interpretation: Normal sinus rhythm at 95 beats a minute, left axis deviation, previous anterior infarct, nonspecific ST and T wave changes. Discharge Plan Discharge Patient Disposition: Xfer Short-Term Hosp Clinical Impression: Pulmonary emboli, Acute GI bleeding, Syncope, COPD (chronic obstructive pulmonary disease) Condition: Stable Prescriptions: No Action Colace Clear 50 mg capsule 50 mg PO DAILY RF: 0 hydrocodone-acetaminophen 10-325 mg tablet 1 tab PO .5 times a day PRN (Reason: pain) 30 Days Qty: 150 RF: 0 metoprolol tartrate 50 mg tablet 50 mg PO DAILY RF: 0 furosemide 40 mg tablet 40 mg PO BID 90 Days Qty: 180 RF: 3 potassium chloride 20 mEq tablet extended release 20 meq PO BID Qty: 180 RF: 3 metformin 500 mg tablet extended release 24 hr 1,000 mg PO DAILY RF: 0 atorvastatin 10 mg tablet 10 mg PO DAILY RF: 0 amlodipine 10 mg tablet 10 mg PO DAILY RF: 0 losartan-hydrochlorothiazide 100-25 mg tablet 1 tab PO DAILY RF: 0 aspirin [Adult Low Dose Aspirin] 81 mg tablet,delayed release (DR/EC) 81 mg PO QDAY RF: 0 montelukast [Singulair] 10 mg tablet 10 mg PO DAILY RF: 0 Humulin N NPH U-100 Insulin 100 unit/mL suspension See Rx Instructions SUBCUT BID RF: 0 insulin lispro [Humalog U-100 Insulin] 100 unit/mL solution See Rx Instructions SUBCUT TID RF: 0 Toujeo Max U-300 SoloStar 300 unit/mL (3 mL) insulin pen 100 unit SUBCUT .QHS RF: 0 Bydureon 2 mg/0.65 mL pen injector 2 mg SUBCUT .WEEKLY RF: 0 hydrocodone-acetaminophen 10-325 mg tablet 1 tab PO .five daily PRN (Reason: pain) 30 Days Qty: 150 RF: 0 Hold Instructions: Home Medication placed on hold at Doctor's office Abilify 10 mg tablet 10 mg PO QAM Qty: 90 RF: 2 venlafaxine [Effexor XR] 75 mg capsule,extended release 24hr 75 mg PO QAM Qty: 90 RF: 2 venlafaxine [Effexor XR] 150 mg capsule,extended release 24hr 150 mg PO QAM Qty: 90 RF: 2 trazodone 100 mg tablet 200 mg PO .bedtime PRN (Reason: sleep) Qty: 180 RF: 2 hydrocodone-acetaminophen 10-325 mg tablet 1 tab PO .5 times a day 30 Days Qty: 150 RF: 0 isosorbide mononitrate 30 mg tablet extended release 24 hr 30 mg PO DAILY Qty: 90 RF: 3 Referrals: Bonita Villasenor MD [Primary Care Provider] - Sign Out Sign Out Data: Patient Sign Out occurred on 03/29/20 at 01:53. Patient's care was discussed, and care was transferred from Bryan Mcgarry to Lesvia Sibley. Sign Out Comment: transfer of care for admission Last updated by Bryan Mcgarry FNP at 03/29/20 01:30 Coding Level of Care Code ED Tread Cutter for Win Fwd Exam Comprehensive
--- NOTE | 2020-03-28 22:21 | CTR_ITS ---
PROCEDURE INFORMATION: Exam: CT Angiography Chest With Contrast Exam date and time: 03/28/2020 11:37 PM Age: 64 years old Clinical indication: Nausea; Abdominal pain; Generalized; Cough and shortness of breath; Chest pain; Type not specified; Additional info: Shortness of breath, abd pain TECHNIQUE: Imaging protocol: Computed tomographic angiography of the chest with intravenous contrast. Sagittal and coronal reformatted images were created and reviewed. 3D rendering: MIP and/or 3D reconstructed images were created by the technologist. Radiation optimization: All CT scans at this facility use at least one of these dose optimization techniques: automated exposure control; mA and/or kV adjustment per patient size (includes targeted exams where dose is matched to clinical indication); or iterative reconstruction. Contrast material: VISI; Contrast volume: 95 ml; Contrast route: INTRAVENOUS (IV); COMPARISON: CTA Chest-Pulmonary Emb [id number] 03/23/2018 11:10 AM RADIATION DOSE METRICS: Total DLP (mGy-cm): 2374.68 FINDINGS: Pulmonary arteries: Occlusive pulmonary embolus in the posterior segmental branch and subsegmental branches of the right upper lobe pulmonary artery. Nonocclusive pulmonary emboli in the superior segmental branch of the right lower lobe pulmonary artery. Embolus in the distal left pulmonary artery with occlusive and nonocclusive emboli extending into virtually all segmental and subsegmental branches of the left upper, lingular, and lower lobe pulmonary arteries. Aorta: Moderate atherosclerotic changes in the visualized arteries. No evidence for aortic aneurysm. Lungs: Tracheobronchial structures are patent. Incidental note of an accessory bronchus off the distal trachea extending into the right upper lobe. Findings are stable. Patchy atelectasis in the right and left lower lobes. Calcified granulomas in both lungs. Noncalcified nodule in the right upper lobe with an average measurement of 3 mm (series 4, image 26). Pleural space: No pneumothorax. No pleural effusion. Heart: Stable mild enlargement of the heart. Stable calcification of the aortic valve. Moderate atherosclerotic calcification in the coronary arteries. The RV/LV ratio is 1.2, which is elevated. There is flattened appearance of the interventricular septum. Findings raise suspicion for right heart strain. Mediastinal space: The esophagus is unremarkable. No mediastinal hematoma. No pneumomediastinum. Lymph nodes: No lymphadenopathy. Stable partially calcified lymph nodes in the mediastinum and right and left brigitte. Bones/joints: Multilevel degenerative changes of varying severity in the visualized spine. Mild kyphosis. Soft tissues: No acute abnormality in the extrathoracic soft tissues. IMPRESSION: 1. Occlusive pulmonary embolus in the posterior segmental branch and subsegmental branches of the right upper lobe pulmonary artery. Nonocclusive pulmonary emboli in the superior segmental branch of the right lower lobe pulmonary artery. Embolus in the distal left pulmonary artery with occlusive and nonocclusive emboli extending into virtually all segmental and subsegmental branches of the left upper, lingular, and lower lobe pulmonary arteries. 2. The RV/LV ratio is 1.2, which is elevated. There is flattened appearance of the interventricular septum. Findings raise suspicion for right heart strain. 3. Patchy atelectasis in the right and left lower lobes. 4. Noncalcified nodule in the right upper. Findings are stable dating back to 03/23/2018. Stability would indicate this is due to a benign process such as a noncalcified granuloma. 5. Incidental/nonacute findings are listed in the report. COMMENTS: THIS REPORT CONTAINS FINDINGS THAT MAY BE CRITICAL TO PATIENT CARE. The findings were verbally communicated via telephone conference with Bryan Flores at 12:45 AM CDT on 03/29/2020. The findings were acknowledged and understood. PROCEDURE INFORMATION: Exam: CT Abdomen And Pelvis With Contrast Exam date and time: 03/28/2020 11:37 PM Age: 64 years old Clinical indication: Nausea; Abdominal pain; Generalized; Cough and shortness of breath; Chest pain; Type not specified; Additional info: Shortness of breath, abd pain TECHNIQUE: Imaging protocol: Computed tomography of the abdomen and pelvis with intravenous contrast. Sagittal and coronal reformatted images were created and reviewed. Radiation optimization: All CT scans at this facility use at least one of these dose optimization techniques: automated exposure control; mA and/or kV adjustment per patient size (includes targeted exams where dose is matched to clinical indication); or iterative reconstruction. Contrast material: VISI; Contrast volume: 95 ml; Contrast route: INTRAVENOUS (IV); COMPARISON: CT abdomen pelvis w con* [id number] 12/06/2014 3:19:49 PM RADIATION DOSE METRICS: Total DLP (mGy-cm): 2374.68 FINDINGS: Liver: The liver is unremarkable. Gallbladder and bile ducts: The gallbladder is unremarkable. No biliary ductal dilatation. Pancreas: The pancreas is unremarkable. No pancreatic ductal dilatation. Spleen: The spleen is unremarkable. Adrenals: The right and left adrenal glands are unremarkable. Kidneys and ureters: The right and left kidneys are unremarkable. The right and left ureters are unremarkable. Stomach and bowel: No acute abnormality in the stomach. No acute abnormality in the small bowel. Numerous diverticula in the descending colon and sigmoid colon. No evidence for diverticulitis. Increased fecal content in the colon. Postsurgical changes in the cecum. Appendix: Appendix not definitely visualized. No inflammatory changes in the pericecal region however. Intraperitoneal space: No free intraperitoneal air. No ascites. No loculated fluid collections to suggest an abscess. Vasculature: Moderate atherosclerotic changes in the visualized arteries. No evidence for aortic aneurysm or aortic dissection. Hepatic veins, portal veins, splenic vein, and SMV are patent. Lymph nodes: Multiple enlarged lymph nodes in the retroperitoneum and along the right and left iliac trains. These are new compared with the previous study. Prominent lymph nodes are also seen in the right and left groin. The largest measures 3.3 x 2.2 cm (series 3, image 81). Bladder: Unremarkable as visualized. Reproductive: Enlarged, bulky uterus with multiple intrauterine fibroids. The uterus has increased in size and now measures 14.6 x 12.2 x 13.3 cm (series 606, image 58 and series 3, image 65). The largest fibroid has increased in size and now measures 5.9 x 8.0 x 7.1 cm (series 606, image 58 and series 3, image 72). Some fibroids show evidence of necrosis. The ovaries are not definitely visualized, not an expected in a postmenopausal female. This is likely due to ovarian atrophy. Bones/joints: Degenerative changes in the spine and hips. Moderate spinal canal stenosis at L3-L4. Mild spinal canal stenosis at L1-L2 and L5-S1. Soft tissues: Subcutaneous inflammation over the anterior abdomen, suspicious for cellulitis. CT/CT angio chest w abd pel w con IMPRESSION: 1. Subcutaneous inflammation over the anterior abdomen, suspicious for cellulitis. Recommend clinical correlation. 2. Enlarged, bulky uterus with multiple intrauterine fibroids. Some fibroid show evidence of necrosis. The uterus and at least the largest fibroid have also increased in size. 3. Descending colon and sigmoid colon diverticulosis. No evidence for diverticulitis. 4. Interval development of retroperitoneal and bilateral iliac lymphadenopathy. Recommend clinical correlation as a metastatic process cannot be ruled out. COMMENTS: Urgent results were discussed with Bryan Flores on 03/29/2020 at 1:02 AM CDT. Radiation Dose CTDIVOL = (mGy): DLP = 2374.68~2374.68 (mGy-cm)
[2020-03-28 23:25] LABS: Basophils # 0.1 10^3/uL (0.0-0.1); Basophils % 0.5 %; Eosinophils # 0.5 10^3/uL (0.0-0.8); Eosinophils % 3.8 %; Hematocrit 46.9 % (37.0-47.0); Hemoglobin 14.9 g/dL (11.5-15.3); Lymphocytes # 1.4 10^3/uL (0.8-4.8); Lymphocytes % 10.6 %; Mean Corpuscular HGB Conc 31.8 g/dL (30.0-36.0); Mean Corpuscular Hemoglobin 30.5 pg (28.0-34.0); Mean Corpuscular Volume 96.1 fL (81-99); Mean Platelet Volume 10.6 fL (7.4-10.4); Monocytes # 0.9 10^3/uL (0.2-0.9); Monocytes % 6.9 %; Neutrophils # 9.94 10^3/uL (1.8-7.7); Neutrophils % 77.5 %; Nucleated Red Blood Cells % 0 %; Platelet Count 240 10^3/cmm (130-400); Red Blood Count 4.88 10^6/uL (4.1-5.3); Red Cell Distribution Width 13.2 % (12.1-15.1); White Blood Count 12.8 10^3/uL (4.0-10.0)
[2020-03-28 23:28] LABS: Alanine Aminotransferase 10 U/L (0-33); Albumin Level 3.7 g/dL (3.5-5.2); Alkaline Phosphatase 94 IU/L (35-105); Aspartate Amino Transferase 18 U/L (0-32); Blood Urea Nitrogen 18 mg/dL (8-23); Calcium 9.6 mg/dL (8.5-10.5); Carbon Dioxide 30 mmol/L (22-29); Chloride 96 mmol/L (98-107); Globulin 4.1 g/dL (1.3-4.6); Glucose 98 mg/dL (65-115); Osmolality Calculated 276 mOsm/kg (285-295); Sodium 135 mmol/L (136-145); Total Bilirubin 0.2 mg/dL (0.15-1.2); Total Protein 7.8 g/dL (6.6-8.7)
[2020-03-28 23:29] LABS: Troponin(5th) Baseline 33 ng/L (0-10)
[2020-03-28 23:34] LABS: Anion Gap 13.3 (5-19); Potassium 4.3 mmol/L (3.5-5.1)
[2020-03-28 23:49] LABS: Slide Review Slide Review Perform
[2020-03-28] MEDS: iodixanol 320 mg/mL 100mL Btl IV (23:54)
--- NOTE | 2020-03-29 00:09 | ECG_ITS ---
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 Measurements Intervals [place] Rate: 86 P: 55 [place]: 210 QRS: -21 QRSD: 97 T: 76 QT: 361 QTc: 432 Interpretive Statements SINUS RHYTHM WITH FIRST DEGREE AV BLOCK BORDERLINE LEFT AXIS DEVIATION [QRS AXIS < -20] Poor R wave progression MINIMAL VOLTAGE CRITERIA FOR LVH, CONSIDER NORMAL VARIANT [MEETS CRITERIA IN ONE OF: R(aVL), S(V1), R(V5), R(V5/V6)+S(V1)] NONSPECIFIC T-WAVE ABNORMALITY Compared to ECG 03/28/2020 22:26:26 First degree AV block now present T-wave abnormality now present ST (T wave) deviation no longer present Myocardial infarct finding no longer present Electronically Signed On 03-29-2020 21:13:06 CDT by Rebecca Maldonado M.D. [id number]
[2020-03-29 00:47] LABS: Troponin 5 2HR 32.21 ng/L (0-10)
[2020-03-29 00:48] LABS: ABG PCO2 58.1 mmHg (35-45); ABG PH Result 7.37 (7.35-7.45); Arterial Blood Gas Hematocrit 42.3 % (37-47); Base Excess ABG 6.1 mmol/L (-2.0-2.0); Blood Gas Allen Test Pos; Blood Gas Sample Site Radial, right; Blood Gas Sample Type Arterial; HCO3 ABG 33.3 mmol/L (22-26); Oxygen Device NC; PO2 ABG 53.8 mmHg (80.0-100.0)
--- NOTE | 2020-03-29 01:02 | PC.NURSE ---
Assisted MD with rectal exam
[2020-03-29 01:34] LABS: Troponin 5 2HR Delta -0.79 ABS# (0-10)
[2020-03-29 01:58] LABS: NT Pro B Type Natriuretic Pept 51 pg/mL (0-125)
[2020-03-29 02:08] LABS: Add Urine Culture? Yes; Add Urine Microscopic? YES; Bacteria Urine 1+; Bilirubin Urine Neg (NEGATIVE); Blood Urine 3+ (Negative); Glucose Urine UA Norm (Normal); Ketones Urine Negative (Negative); Leukocyte Esterase Urine Negative (Negative); Nitrate Urine Negative (Negative); Protein Urine Neg (Negative); RBC Urine >100 /hpf (0-2); Squamous Epithelial Cell Urine 0-4 (0-5); Urine Appearance Cloudy (CLEAR); Urine Color Red (Yellow); Urobilinogen Urine Norm (Negative); pH Urine 7 (5-7)
--- NOTE | 2020-03-29 02:23 | USCV_ITS ---
Carol Bustos Age: 64 Gender: F : 1955 Exam Date: 03/29/2020 02:22 Ordering Phys: Lesvia Sibley DO Technologist: Joseph Lisa [place]am [place] [facility] [place]ication: PE BP: 177 / 53 HR: 95 Rhythm: Sinus Technical Quality: Fair MEASUREMENTS (Male / Female) Normal Values 2D ECHO LV Diastolic Diameter PLAX 4.5 cm 4.2 - 5.9 / 3.9 - 5.3 cm LV Systolic Diameter PLAX 2.9 cm IVS Diastolic Thickness 1.1 cm 0.6 - 1.0 / 0.6 - 0.9 cm IVS Systolic Thickness 1.6 cm LVPW Diastolic Thickness 1.2 cm 0.6 - 1.0 / 0.6 - 0.9 cm LVPW Systolic Thickness 1.4 cm LVOT Diameter 2.1 cm LV Ejection Fraction 2D Teich 65.7 % LV Ejection Fraction MOD 2C 63.9 % LV Ejection Fraction 2C AL 63.3 % LA Diameter 5.1 cm LA Width 3.9 cm LA Height 5.8 cm RA Width 3.6 cm RA Height 4.2 cm M-MODE LV Diastolic Diameter MM 5.4 cm 4.2 - 5.9 / 3.9 - 5.3 cm LV Systolic Diameter MM 3.6 cm LV Ejection Fraction MM Teich 60.9 % IVS Diastolic Thickness MM 1.2 cm 0.6 - 1.0 / 0.6 - 0.9 cm IVS Systolic Thickness MM 1.9 cm LVPW Diastolic Thickness MM 1.2 cm 0.6 - 1.0 / 0.6 - 0.9 cm LVPW Systolic Thickness MM 2.0 cm RV Diastolic Diameter MM 1.1 cm Aortic Annulus Diameter 4.1 cm LA Ao Ratio MM 1.3 MV E Point Septal Separation 1.3 cm DOPPLER AV Peak Velocity 207.0 cm/s LVOT Peak Velocity 161.0 cm/s AV Area Cont Eq vti 3.2 cm squared AV Area Cont Eq pk 2.6 cm squared MV Area PHT 5.0 cm squared Mitral E to A Ratio 0.6 MV E' Velocity 7.0 cm/s Mitral E to MV E' Ratio 14.5 Mitral E to LV E' Lateral Ratio 13.9 Mitral E to LV E' Septal Ratio 15.2 TR Peak Velocity 160.0 cm/s TR Peak Gradient 10.2 mmHg TV Peak E Velocity 106.0 cm/s Right Atrial Pressure 3.0 mmHg Pulmonary Artery Systolic Pressu 13.2 mmHg PV Peak Velocity 124.0 cm/s FINDINGS Left Ventricle Normal left ventricular size and systolic function, EF 65 %. No regional wall motion abnormalities. Grade I/IV diastolic dysfunction (abnormal relaxation filling pattern), normal to mildly elevated filling pressures. Right Ventricle The right ventricle is normal in size and function. Right Atrium The right atrium is normal in size. Left Atrium Mildly increased left atrial size. Mitral Valve Thickened mitral valve. Moderate mitral annular calcification. Aortic Valve Thickened aortic valve. Trace aortic valve regurgitation. Aortic valve sclerosis. Tricuspid Valve No gross abnormalities noted Pulmonic Valve Pulmonic valve not well visualized. Pericardium Normal pericardium without effusion. Aorta Normal aortic annulus size. CONCLUSIONS Normal left ventricular size and systolic function, EF 65 %. No regional wall motion abnormalities. Grade I/IV diastolic dysfunction (abnormal relaxation filling pattern), normal to mildly elevated filling pressures. Mildly increased left atrial size. Normal RV size and ejection fraction. Thickened mitral valve. Moderate mitral annular calcification. Features of aortic valve sclerosis There is no pericardial effusion. No previous study is available for comparison. Dr Rebecca Maldonado MD FACC (Electronically Signed) Final Date: 29 March 2020 21:03 S
[2020-03-29] MEDS: heparin 5,000 unit/mL INJ 1 mL IV ×2 (02:51→03:05)
[2020-03-29] MEDS: heparin drip 25,000 UNIT/500 ML PREMIX 31 UNIT (02:53)
[2020-03-29 04:01] LABS: Platelet Count 198 10^3/cmm (130-400)
--- NOTE | 2020-03-29 04:09 | ECG_ITS ---
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 Measurements Intervals [place] Rate: 95 P: 56 ND: 209 QRS: -31 QRSD: 94 T: 77 QT: 337 QTc: 425 Interpretive Statements SINUS RHYTHM LEFT AXIS DEVIATION [QRS AXIS < -30] MODERATE VOLTAGE CRITERIA FOR LVH, CONSIDER NORMAL VARIANT [MEETS CRITERIA IN ONE OF: R(aVL), S(V1), R(V5), R(V5/V6)+S(V1)] POSSIBLE ANTERIOR MYOCARDIAL INFARCTION , OF INDETERMINATE AGE [30 ms Q WAVE IN V3/V4, OR R < 0.2 mV IN V4] Compared to ECG 03/29/2020 00:23:51 Myocardial infarct finding now present First degree AV block no longer present T-wave abnormality no longer present Electronically Signed On 03-29-2020 21:14:49 CDT by Rebecca Maldonado M.D. [id number]
[2020-03-29 04:32] VITALS: BP 128/49; PULSE 90; RESP 18; O2SAT 96
--- NOTE | 2020-03-29 04:52 | PC.NURSE ---
BG 69
[2020-03-29 04:54] LABS: Glucose Point of Care 69 mg/dL (70-110)
[2020-03-29] MEDS: piperacillin-tazobactam 3.375 GM in sodium chloride 0.9% (plus) 50 ML IV (05:13)
[2020-03-29 05:30] LABS: SARS Covid-2 Antigen Negative (Negative)
[2020-03-29 06:03] LABS: Glucose Point of Care 105 mg/dL (70-110)
[2020-03-29] MEDS: diphenhydrAMINE 50 mg/mL SDV 1mL 25 MG IVP (06:22)
[2020-03-29 06:56] VITALS: BP 148/76; PULSE 84; RESP 18; TEMP 36.8; O2SAT 97
== END 2020-03-29 07:00 | disposition short-term general hospital (02) ==
PROVIDERS: Nurse Practitioner Family; Emergency Provider Emergency Medicine; PCP Family Medicine
DX: I26.99 Other pulmonary embolism without acute cor pulmonale (principal); K92.2 Gastrointestinal hemorrhage, unspecified; R55 Syncope and collapse; J44.9 Chronic obstructive pulmonary disease, unspecified; Z79.82 Long term (current) use of aspirin; Z79.4 Long term (current) use of insulin; I11.0 Hypertensive heart disease with heart failure; I50.30 Unspecified diastolic (congestive) heart failure; E11.9 Type 2 diabetes mellitus without complications; E78.5 Hyperlipidemia, unspecified; F17.210 Nicotine dependence, cigarettes, uncomplicated
CPT/HCPCS: 12345; 36415; 36416; 36600; 71045; 71275; 74177; 80053; 81001; 82803; 82962; 83605; 83880; 84484; 85025; 85049; 87086; 87426; 93005; 93306; 96365; 96366; 96367; 96375; 99284; 99285; J1200; J1644; J2543; Q9967

== ENCOUNTER → 2020-04-04 13:51 | Outpatient (BNVA) | payer MEDICARE, OTHER, SELFPAY | PROVIDERS: PCP Family Medicine; Visit Provider Anesthesiology | DX: G89.29 Other chronic pain (principal); M79.671 Pain in right foot; M79.672 Pain in left foot; M51.36 Other intervertebral disc degeneration, lumbar region; F17.210 Nicotine dependence, cigarettes, uncomplicated; Z79.891 Long term (current) use of opiate analgesic; Z71.6 Tobacco abuse counseling | CPT/HCPCS: 99214 ==

== ENCOUNTER 2020-05-01 01:05 | Emergency (ER) | payer MEDICARE, OTHER, SELFPAY ==
[2020-05-01 01:06] VITALS: BP 125/53; PULSE 85; RESP 18; TEMP 36.3; O2SAT 90; BMI 32.3
--- NOTE | 2020-05-01 01:10 | CTR_ITS ---
PROCEDURE INFORMATION: Exam: CT Head Without Contrast Exam date and time: 05/01/2020 1:13 AM Age: 64 years old Clinical indication: Other: Generalized weakness TECHNIQUE: Imaging protocol: Computed tomography of the head without contrast. Radiation optimization: All CT scans at this facility use at least one of these dose optimization techniques: automated exposure control; mA and/or kV adjustment per patient size (includes targeted exams where dose is matched to clinical indication); or iterative reconstruction. COMPARISON: CT head wo con* [id number] 12/20/2018 4:18 PM RADIATION DOSE METRICS: Total DLP (mGy-cm): 881.19 FINDINGS: Brain: There is mild diffuse cerebral atrophy. Patchy areas of hypoattenuation are seen in the deep white matter of the cerebral hemispheres bilaterally compatible with deep white matter microvascular disease. Focal hypoattenuation seen within the thalamus on the left compatible with a chronic infarction. This was present on 12/20/2018. Ventricles: Normal. No ventriculomegaly. Bones/joints: Unremarkable. No acute fracture. Sinuses: Some fluid and mucosal thickening is seen within the sphenoidal sinuses. Mastoid air cells: Visualized mastoid air cells are well aerated. Soft tissues: Unremarkable. CT/CT head wo con* [id number] IMPRESSION: There are no acute intracranial findings. Radiation Dose CTDIVOL = (mGy): DLP = 881.19 (mGy-cm)
--- NOTE | 2020-05-01 01:13 | ED_ITS ---
HPI - Weakness General: Chief complaint: Weakness Stated complaint: LOW BLOOD SUGAR Time Seen by Provider: 05/01/20 01:05 Source: patient and EMS Mode of arrival: EMS Limitations: no limitations History of Present Illness: HPI Narrative: 64-year-old female states she went to bed last night roughly at 830. She states she woke up this morning and had weakness to her left side. She was concerned she is having a stroke and called EMS. Patient does have diabetes and states she has not been eating much and took her insulin last night. When EMS arrived her blood sugar was in the 40s. They had her eat a peanut butter sandwich and oral glucose. Patient's blood sugar is now 120 and she states her symptoms are resolving. She is now able to lift her left arm without any difficulty. She states she still has some weakness in her bilateral legs. Denies any difficulty talking. Associated symptoms: Denies chest pain, chills, dysuria, easy bruising, fever(s), nausea or vomiting Review of Systems Const: Denies: fever(s), chills, body aches or change in appetite Eyes: Denies: blurry vision or eye discomfort ENMT: Denies: throat pain or dental pain Card: Denies: chest pain Resp: Denies: dyspnea GI: Denies: abdominal pain, nausea, vomiting or diarrhea : Denies: dysuria Musc: Denies: neck pain or back pain Skin/Breast: Denies: rash Neuro: Reports: weakness in extremities Psych: Denies: depression Christopher/Lymph: Denies: easy bruising All/Imm: Denies: urticaria PFSH ED PFSH: Medical History Chronic low back pain Chronic pain COPD (chronic obstructive pulmonary disease) DDD (degenerative disc disease), lumbar Diabetes Diastolic heart failure Encounter for long-term opiate analgesic use Generalized anxiety disorder GERD (gastroesophageal reflux disease) HTN (hypertension) Hyperlipidemia Long-term current use of opiate analgesic Lower extremity edema Major depressive disorder, recurrent severe without psychotic features Nicotine dependence, cigarettes, uncomplicated Pain management contract signed Peripheral neuropathy Surgical History Amputation of left great toe Herniated gastric pouch, complication of bariatric surgery History of ankle surgery History of appendectomy Hx of appendectomy Hx of hernia repair Family History Mother Diabetes Hypertension Other Stroke Social History Smoking and tobacco status: former smoker Quit status (tobacco): has quit using tobacco Former quit date comment: 1 WEEK AGO Second hand smoke exposure: Yes Alcohol intake: never Lives independently: Yes Household members: other Details: ROOMMATE Marital status: / Current occupational status: disabled History of recent travel: No Physical Exam Const: COMMON NORMALS: no acute distress, patient oriented x3, healthy appearing and alert HENMT: COMMON NORMALS: normocephalic and atraumatic HEAD & SCALP: normocephalic and atraumatic Eye: COMMON NORMALS: Equal, round and reactive pupils present and EOMs intact bilaterally PUPIL: Yes Equal, round and reactive pupils present Neck/C-Spine: COMMON NORMALS: full ROM and supple Chest: COMMONS NORMALS: normal inspection of the chest and normal palpation of entire chest wall Resp: COMMON NORMALS: normal respiratory effort, No retractions, No use of accessory muscles and clear to auscultation bilaterally AUSCULTATION: clear to auscultation bilaterally Cardio: COMMON NORMALS: regular rate, regular rhythm and No murmurs present (Cardio) RATE: regular rate RHYTHM: regular rhythm GI: COMMON NORMALS: Normal to inspection, nondistended, normoactive bowel sounds present, Soft to palpation, non-tender and no masses PALPATION: Yes Soft to palpation Extremity: COMMON NORMALS: normal to inspection and full ROM Neuro: COMMON NORMALS: patient oriented x3 and no focal motor deficits SENSORIUM/ORIENTATION: Yes alert CRANIAL NERVES: Yes CN normal except as noted COORDINATION/BALANCE: [id number] test normal SPEECH: speech normal SENSORY EXAM: Yes extremities COORDINATION: [id number] test normal OTHER: 5 out of 5 strength to upper extremities. Patient does have weakness to bilateral legs. She is able to lift both legs but is not able to hold them up for 5 seconds. Psych: COMMON NORMALS: mental status grossly normal, Normal thought process present and cooperative THOUGHT PROCESS: Normal thought process present Skin: COMMON NORMALS: no rashes or lesions noted and no wounds GENERAL SKIN EXAM: no rashes or lesions noted Course Vital Signs: Vital signs: Vital Signs Temperature 97.4 F L 05/01/20 01:06 Pulse Rate 82 05/01/20 04:11 Respiratory Rate 22 H 05/01/20 04:11 Blood Pressure 130/79 05/01/20 04:11 Pulse Oximetry 94 05/01/20 04:11 MDM - Weakness MDM Narrative: Medical decision making narrative: 0120 patient presents here with hypoglycemia along with weakness. Patient's arm weakness is subsided. Her weakness is likely due to low blood sugar. Will get a CT to rule out a CVA. Patient is not a TPA candidate as her symptoms are resolving and she is out of the window she told me she went to bed at roughly 8:30 PM. 0530 Carol presents here with weakness along with hyperglycemia. Her left arm weakness is resolved. She has chronic leg weakness and uses a wheelchair. I strongly recommended admission for hypoglycemia and her increased weakness. Also recommend admission for an MRI just to rule out a stroke even though her left-sided weakness is resolved. Patient states she does not want to stay and wants to go home. I informed her she could have worsening symptoms. She understands this and has decision make capacity. She is decided to sign out AMA. I informed her she needs to follow-up with her PCP soon as possible and is to return to ER if she changes her mind or worsening. Lab Data: Labs: Lab Results 05/01/20 05/01/20 05/01/20 Range/Units 01:14 01:15 01:15 WBC 12.3 H (4.0-10.0) 10^3/ uL RBC 4.02 L (4.1-5.3) 10^6/u L Hgb 11.7 (11.5-15.3) g/dL Hct 37.9 (37.0-47.0) % MCV 94.3 (81-99) fL MCH 29.1 (28.0-34.0) pg MCHC 30.9 (30.0-36.0) g/dL RDW 13.7 (12.1-15.1) % Plt Count 287 (130-400) 10^3/c mm MPV 9.8 (7.4-10.4) fL Neut % (Auto) 82.4 % Lymph % (Auto) 7.5 % [place] % (Auto) 7.9 % Eos % (Auto) 1.6 % Baso % (Auto) 0.2 % Neut # (Auto) 10.15 H (1.8-7.7) 10^3/u L Lymph # (Auto) 0.9 (0.8-4.8) 10^3/u L [place] # (Auto) 1.0 H (0.2-0.9) 10^3/u L Eos # (Auto) 0.2 (0.0-0.8) 10^3/u L Baso # (Auto) 0.0 (0.0-0.1) 10^3/u L Nucleated RBC % (a uto) 0 % Nucleated RBCs # 0.0 /100WBC PT 15.90 H (12.1-14.9) SECO NDS INR 1.23 H (0.8-1.2) Sodium (136-145) mmol/L Potassium (3.5-5.1) mmol/L Chloride (98-107) mmol/L Carbon Dioxide (22-29) mmol/L Anion Gap (5-19) BUN (8-23) mg/dL Creatinine (0.5-0.9) mg/dL GFR Calculation (90-130) mL/min Glucose (65-115) mg/dL POC Glucose 136 (70-110) mg/dL Calculated Osmolal ity (285-295) mOsm/k g Calcium (8.5-10.5) mg/dL Total Bilirubin (0.15-1.2) mg/dL AST (0-32) U/L ALT (0-33) U/L Alkaline Phosphata se (35-105) IU/L Total Protein (6.6-8.7) g/dL Albumin (3.5-5.2) g/dL Globulin (1.3-4.6) g/dL 05/01/20 05/01/20 Range/Units 01:15 02:56 WBC (4.0-10.0) 10^3/ uL RBC (4.1-5.3) 10^6/u L Hgb (11.5-15.3) g/dL Hct (37.0-47.0) % MCV (81-99) fL MCH (28.0-34.0) pg MCHC (30.0-36.0) g/dL RDW (12.1-15.1) % Plt Count (130-400) 10^3/c mm MPV (7.4-10.4) fL Neut % (Auto) % Lymph % (Auto) % [place] % (Auto) % Eos % (Auto) % Baso % (Auto) % Neut # (Auto) (1.8-7.7) 10^3/u L Lymph # (Auto) (0.8-4.8) 10^3/u L [place] # (Auto) (0.2-0.9) 10^3/u L Eos # (Auto) (0.0-0.8) 10^3/u L Baso # (Auto) (0.0-0.1) 10^3/u L Nucleated RBC % (a uto) % Nucleated RBCs # /100WBC PT (12.1-14.9) SECO NDS INR (0.8-1.2) Sodium 139 (136-145) mmol/L Potassium 4.1 (3.5-5.1) mmol/L Chloride 101 (98-107) mmol/L Carbon Dioxide 28 (22-29) mmol/L Anion Gap 14.1 (5-19) BUN 16 (8-23) mg/dL Creatinine 1.3 H (0.5-0.9) mg/dL GFR Calculation 41.2 L (90-130) mL/min Glucose 138 H (65-115) mg/dL POC Glucose 117 (70-110) mg/dL Calculated Osmolal ity 287 (285-295) mOsm/k g Calcium 9.6 (8.5-10.5) mg/dL Total Bilirubin 0.2 (0.15-1.2) mg/dL AST 16 (0-32) U/L ALT 9 (0-33) U/L Alkaline Phosphata se 68 (35-105) IU/L Total Protein 7.4 (6.6-8.7) g/dL Albumin 3.3 L (3.5-5.2) g/dL Globulin 4.1 (1.3-4.6) g/dL Imaging Data^: CT Head: Radiologist's impression: [address] [address] [address] Scan Report Signed Patient: Carol Bustos Unit #: [id number] : 1955 Age/Sex: 64 / F ADM Date: 05/01/20 Loc: ER Room/Bed: Attending Dr: Ordering Provider/Ordering MD: Nela Stockton MD Date of Service: 05/01/20 Procedure(s): CT head wo con* [id number] Accession Number(s): [id number] Report Number: [id number] PROCEDURE INFORMATION: Exam: CT Head Without Contrast Exam date and time: 05/01/2020 1:13 AM Age: 64 years old Clinical indication: Other: Generalized weakness TECHNIQUE: Imaging protocol: Computed tomography of the head without contrast. Radiation optimization: All CT scans at this facility use at least one of these dose optimization techniques: automated exposure control; mA and/or kV adjustment per patient size (includes targeted exams where dose is matched to clinical indication); or iterative reconstruction. COMPARISON: CT head wo con* [id number] 12/20/2018 4:18 PM RADIATION DOSE METRICS: Total DLP (mGy-cm): 881.19 FINDINGS: Brain: There is mild diffuse cerebral atrophy. Patchy areas of hypoattenuation are seen in the deep white matter of the cerebral hemispheres bilaterally compatible with deep white matter microvascular disease. Focal hypoattenuation seen within the thalamus on the left compatible with a chronic infarction. This was present on 12/20/2018. Ventricles: Normal. No ventriculomegaly. Bones/joints: Unremarkable. No acute fracture. Sinuses: Some fluid and mucosal thickening is seen within the sphenoidal sinuses. Mastoid air cells: Visualized mastoid air cells are well aerated. Soft tissues: Unremarkable. CT/CT head wo con* [id number] IMPRESSION: There are no acute intracranial findings. CXR: Attestation: I personally reviewed and interpreted this imaging study as follows: My impression: no acute abnormality cta head: Attestation: I personally reviewed and interpreted this imaging study as follows: Radiologist's impression: [address] [address] [address] Scan Report Signed Patient: Carol Bustos Unit #: [id number] : 1955 Age/Sex: 64 / F ADM Date: 05/01/20 Loc: ER Room/Bed: Attending Dr: Ordering Provider/Ordering MD: Nela Stockton MD Date of Service: 05/01/20 Procedure(s): CT angio headneck* [id number] Accession Number(s): [id number] Report Number: [id number] PROCEDURE INFORMATION: Exam: CT Angiography Head With Contrast Exam date and time: 05/01/2020 2:04 AM Age: 64 years old Clinical indication: Weakness TECHNIQUE: Imaging protocol: Computed tomography angiography of the head with intravenous contrast. 3D rendering (Not supervised by radiologist): MIP and/or 3D reconstructed images were created by the technologist. Radiation optimization: All CT scans at this facility use at least one of these dose optimization techniques: automated exposure control; mA and/or kV adjustment per patient size (includes targeted exams where dose is matched to clinical indication); or iterative reconstruction. Contrast material: OMNI 350; Contrast volume: 95 ml; Contrast route: INTRAVENOUS (IV); COMPARISON: CT head wo con* [id number] 05/01/2020 1:18 AM RADIATION DOSE METRICS: Total DLP (mGy-cm): 3031.85 FINDINGS: ANTERIOR CIRCULATION: Right internal carotid artery: Unremarkable. Intracranial segment is patent with no significant stenosis. No aneurysm. Right middle cerebral artery: Unremarkable. No occlusion or significant stenosis. No aneurysm. Right anterior cerebral artery: Unremarkable. No occlusion or significant stenosis. No aneurysm. Left internal carotid artery: Unremarkable. Intracranial segment is patent with no significant stenosis. No aneurysm. Left middle cerebral artery: Unremarkable. No occlusion or significant stenosis. No aneurysm. Left anterior cerebral artery: Unremarkable. No occlusion or significant stenosis. No aneurysm. POSTERIOR CIRCULATION: Right vertebral artery: Unremarkable. No occlusion or significant stenosis. No aneurysm. Left vertebral artery: Unremarkable. No occlusion or significant stenosis. No aneurysm. Basilar artery: Unremarkable. No occlusion or significant stenosis. No aneurysm. Right posterior cerebral artery: Unremarkable. No occlusion or significant stenosis. No aneurysm. Left posterior cerebral artery: Unremarkable. No occlusion or significant stenosis. No aneurysm. IMPRESSION: No large vessel stenosis or occlusion. PROCEDURE INFORMATION: Exam: CT Angiography Neck With Contrast Exam date and time: 05/01/2020 2:04 AM Age: 64 years old Clinical indication: Weakness TECHNIQUE: Imaging protocol: Computed tomography angiography of the neck with intravenous contrast. 3D rendering (Not supervised by radiologist): MIP and/or 3D reconstructed images were created by the technologist. Radiation optimization: All CT scans at this facility use at least one of these dose optimization techniques: automated exposure control; mA and/or kV adjustment per patient size (includes targeted exams where dose is matched to clinical indication); or iterative reconstruction. Contrast material: OMNI 350; Contrast volume: 95 ml; Contrast route: INTRAVENOUS (IV); COMPARISON: CT head wo con* [id number] 05/01/2020 1:18 AM RADIATION DOSE METRICS: Total DLP (mGy-cm): 3031.85 FINDINGS: Right common carotid artery: No stenosis. No dissection or occlusion. Right internal carotid artery: No stenosis of the extracranial segment. No dissection or occlusion. Right external carotid artery: No occlusion or stenosis of the origin. Right vertebral artery: No stenosis. No dissection or occlusion. Left common carotid artery: No stenosis. No dissection or occlusion. Left internal carotid artery: No significant stenosis of the extracranial segment. There is less than 20% stenosis within the left carotid bulb secondary to soft plaque formation. No dissection or occlusion. Left external carotid artery: No occlusion or stenosis of the origin. Left vertebral artery: No stenosis. No dissection or occlusion. Bones/joints: No acute fracture. Soft tissues: Normal. No significant soft tissue swelling. CT/CT angio headneck* [id number] IMPRESSION: No significant stenosis or occlusion. EKG Data^: EKG 1: Attestation: I personally reviewed and interpreted this EKG as follows: EKG interpretation date: 05/01/20 EKG interpretation time: 01:36 Interpretation: nsr hr [address] or t wave abnormalities qrs 113 qtc 430 Discharge Plan Discharge Patient Disposition: Home Clinical Impression: Hypoglycemia, Weakness Condition: Stable Prescriptions: No Action Colace Clear 50 mg capsule 50 mg PO DAILY RF: 0 metoprolol tartrate 50 mg tablet 50 mg PO DAILY RF: 0 furosemide 40 mg tablet 40 mg PO BID 90 Days Qty: 180 RF: 3 potassium chloride 20 mEq tablet extended release 20 meq PO BID Qty: 180 RF: 3 metformin 500 mg tablet extended release 24 hr 1,000 mg PO DAILY RF: 0 atorvastatin 10 mg tablet 10 mg PO DAILY RF: 0 amlodipine 10 mg tablet 10 mg PO DAILY RF: 0 losartan-hydrochlorothiazide 100-25 mg tablet 1 tab PO DAILY RF: 0 aspirin [Adult Low Dose Aspirin] 81 mg tablet,delayed release (DR/EC) 81 mg PO QDAY RF: 0 montelukast [Singulair] 10 mg tablet 10 mg PO DAILY RF: 0 Humulin N NPH U-100 Insulin 100 unit/mL suspension See Rx Instructions SUBCUT BID RF: 0 insulin lispro [Humalog U-100 Insulin] 100 unit/mL solution See Rx Instructions SUBCUT TID RF: 0 Toujeo Max U-300 SoloStar 300 unit/mL (3 mL) insulin pen 100 unit SUBCUT .QHS RF: 0 Bydureon 2 mg/0.65 mL pen injector 2 mg SUBCUT .WEEKLY RF: 0 hydrocodone-acetaminophen 10-325 mg tablet 1 tab PO .five daily PRN (Reason: pain) 30 Days Qty: 150 RF: 0 Hold Instructions: Home Medication placed on hold at Doctor's office Abilify 10 mg tablet 10 mg PO QAM Qty: 90 RF: 2 venlafaxine [Effexor XR] 75 mg capsule,extended release 24hr 75 mg PO QAM Qty: 90 RF: 2 venlafaxine [Effexor XR] 150 mg capsule,extended release 24hr 150 mg PO QAM Qty: 90 RF: 2 trazodone 100 mg tablet 200 mg PO .bedtime PRN (Reason: sleep) Qty: 180 RF: 2 hydrocodone-acetaminophen 10-325 mg tablet 1 tab PO .5 times a day PRN (Reason: pain) 30 Days Qty: 150 RF: 0 hydrocodone-acetaminophen 10-325 mg tablet 1 tab PO .5 times a day 30 Days Qty: 150 RF: 0 isosorbide mononitrate 30 mg tablet extended release 24 hr 30 mg PO DAILY Qty: 90 RF: 3 Discharge Orders: Discharge Order (Routine); Ordered 05/01/20 Ordered By: Nela Stockton Referrals: Bonita Villasenor MD [Primary Care Provider] - 1-3 days Discharge Diet: Advance as tolerated Discharge Activity: Resume usual activity Patient Instructions: Diabetic Hypoglycemia (ED), Weakness (ED) Coding Level of Care Code ED Financial Sales Professional for Chg Fwd Exam Comprehensive
--- NOTE | 2020-05-01 01:18 | ECG_ITS ---
[facility] Test Date: 2020-05-01 Pat Name: Carol Bustos Department: Room: Gender: Female Autism Specialist: : 1955 Requested By: Nela Stockton Order Number: [id number] Niyah MD: Karen Jay M.D. Measurements Intervals [place] Rate: 79 P: 50 ND: 217 QRS: -29 QRSD: 113 T: 44 QT: 395 QTc: 455 Interpretive Statements SINUS RHYTHM WITH FIRST DEGREE AV BLOCK BORDERLINE LEFT AXIS DEVIATION [QRS AXIS < -20] MODERATE INTRAVENTRICULAR CONDUCTION DELAY [110+ ms QRS DURATION] MODERATE VOLTAGE CRITERIA FOR LVH, CONSIDER NORMAL VARIANT [MEETS CRITERIA IN ONE OF: R(aVL), S(V1), R(V5), R(V5/V6)+S(V1)] Compared to ECG 03/29/2020 04:20:52 First degree AV block now present Intraventricular conduction delay now present Myocardial infarct finding no longer present Electronically Signed On 05-01-2020 17:11:09 CDT by Karen Jay M.D. [id number]
[2020-05-01 01:20] LABS: Glucose Point of Care 136 mg/dL (70-110)
[2020-05-01 01:32] LABS: Basophils % 0.2 %; Eosinophils # 0.2 10^3/uL (0.0-0.8); Eosinophils % 1.6 %; Hematocrit 37.9 % (37.0-47.0); Hemoglobin 11.7 g/dL (11.5-15.3); Lymphocytes # 0.9 10^3/uL (0.8-4.8); Lymphocytes % 7.5 %; Mean Corpuscular HGB Conc 30.9 g/dL (30.0-36.0); Mean Corpuscular Hemoglobin 29.1 pg (28.0-34.0); Mean Corpuscular Volume 94.3 fL (81-99); Mean Platelet Volume 9.8 fL (7.4-10.4); Monocytes % 7.9 %; Neutrophils # 10.15 10^3/uL (1.8-7.7); Neutrophils % 82.4 %; Nucleated Red Blood Cells % 0 %; Platelet Count 287 10^3/cmm (130-400); Red Blood Count 4.02 10^6/uL (4.1-5.3); Red Cell Distribution Width 13.7 % (12.1-15.1); White Blood Count 12.3 10^3/uL (4.0-10.0)
--- NOTE | 2020-05-01 01:41 | XR_ITS ---
WS: [id number] CHEST XRAY TECHNIQUE: Portable chest. CLINICAL INFORMATION: ams COMPARISON: March 28, 2020 FINDINGS: Heart: Cardiomegaly. Aortic calcification. Lungs: Lungs are clear. No consolidation or pleural effusion. Bones: Normal visualized bony structures. XR/XR chest 1V portable [id number] IMPRESSION: No acute chest findings
[2020-05-01 01:44] LABS: INR 1.23 (0.8-1.2)
[2020-05-01 01:48] LABS: Alanine Aminotransferase 9 U/L (0-33); Albumin Level 3.3 g/dL (3.5-5.2); Alkaline Phosphatase 68 IU/L (35-105); Anion Gap 14.1 (5-19); Aspartate Amino Transferase 16 U/L (0-32); Blood Urea Nitrogen 16 mg/dL (8-23); Calcium 9.6 mg/dL (8.5-10.5); Carbon Dioxide 28 mmol/L (22-29); Chloride 101 mmol/L (98-107); Creatinine Clr Calc Pharmacy 49.6007; Globulin 4.1 g/dL (1.3-4.6); Glomerular Filtration Rate 41.2 mL/min (90-130); Glucose 138 mg/dL (65-115); Osmolality Calculated 287 mOsm/kg (285-295); Potassium 4.1 mmol/L (3.5-5.1); Sodium 139 mmol/L (136-145); Total Bilirubin 0.2 mg/dL (0.15-1.2); Total Protein 7.4 g/dL (6.6-8.7)
--- NOTE | 2020-05-01 02:02 | CTR_ITS ---
PROCEDURE INFORMATION: Exam: CT Angiography Head With Contrast Exam date and time: 05/01/2020 2:04 AM Age: 64 years old Clinical indication: Weakness TECHNIQUE: Imaging protocol: Computed tomography angiography of the head with intravenous contrast. 3D rendering (Not supervised by radiologist): MIP and/or 3D reconstructed images were created by the technologist. Radiation optimization: All CT scans at this facility use at least one of these dose optimization techniques: automated exposure control; mA and/or kV adjustment per patient size (includes targeted exams where dose is matched to clinical indication); or iterative reconstruction. Contrast material: OMNI 350; Contrast volume: 95 ml; Contrast route: INTRAVENOUS (IV); COMPARISON: CT head wo con* [id number] 05/01/2020 1:18 AM RADIATION DOSE METRICS: Total DLP (mGy-cm): 3031.85 FINDINGS: ANTERIOR CIRCULATION: Right internal carotid artery: Unremarkable. Intracranial segment is patent with no significant stenosis. No aneurysm. Right middle cerebral artery: Unremarkable. No occlusion or significant stenosis. No aneurysm. Right anterior cerebral artery: Unremarkable. No occlusion or significant stenosis. No aneurysm. Left internal carotid artery: Unremarkable. Intracranial segment is patent with no significant stenosis. No aneurysm. Left middle cerebral artery: Unremarkable. No occlusion or significant stenosis. No aneurysm. Left anterior cerebral artery: Unremarkable. No occlusion or significant stenosis. No aneurysm. POSTERIOR CIRCULATION: Right vertebral artery: Unremarkable. No occlusion or significant stenosis. No aneurysm. Left vertebral artery: Unremarkable. No occlusion or significant stenosis. No aneurysm. Basilar artery: Unremarkable. No occlusion or significant stenosis. No aneurysm. Right posterior cerebral artery: Unremarkable. No occlusion or significant stenosis. No aneurysm. Left posterior cerebral artery: Unremarkable. No occlusion or significant stenosis. No aneurysm. IMPRESSION: No large vessel stenosis or occlusion. PROCEDURE INFORMATION: Exam: CT Angiography Neck With Contrast Exam date and time: 05/01/2020 2:04 AM Age: 64 years old Clinical indication: Weakness TECHNIQUE: Imaging protocol: Computed tomography angiography of the neck with intravenous contrast. 3D rendering (Not supervised by radiologist): MIP and/or 3D reconstructed images were created by the technologist. Radiation optimization: All CT scans at this facility use at least one of these dose optimization techniques: automated exposure control; mA and/or kV adjustment per patient size (includes targeted exams where dose is matched to clinical indication); or iterative reconstruction. Contrast material: OMNI 350; Contrast volume: 95 ml; Contrast route: INTRAVENOUS (IV); COMPARISON: CT head wo con* [id number] 05/01/2020 1:18 AM RADIATION DOSE METRICS: Total DLP (mGy-cm): 3031.85 FINDINGS: Right common carotid artery: No stenosis. No dissection or occlusion. Right internal carotid artery: No stenosis of the extracranial segment. No dissection or occlusion. Right external carotid artery: No occlusion or stenosis of the origin. Right vertebral artery: No stenosis. No dissection or occlusion. Left common carotid artery: No stenosis. No dissection or occlusion. Left internal carotid artery: No significant stenosis of the extracranial segment. There is less than 20% stenosis within the left carotid bulb secondary to soft plaque formation. No dissection or occlusion. Left external carotid artery: No occlusion or stenosis of the origin. Left vertebral artery: No stenosis. No dissection or occlusion. Bones/joints: No acute fracture. Soft tissues: Normal. No significant soft tissue swelling. CT/CT angio headneck* [id number] IMPRESSION: No significant stenosis or occlusion. REFERENCES: NASCET CRITERIA. The degree of internal carotid artery stenosis is based on NASCET criteria. Normal is no stenosis. Mild is less than 50% stenosis. Moderate is 50-69% stenosis. Severe is 70% to 99% stenosis. Total occlusion is no detectable patent lumen. Radiation Dose CTDIVOL = (mGy): DLP = 3031.85~3031.85 (mGy-cm)
[2020-05-01 02:21] VITALS: BP 116/50; PULSE 73; O2SAT 94
[2020-05-01] MEDS: iohexol 350 mg/mL 100 mL Btl IV (02:48)
[2020-05-01 02:55] VITALS: BP 149/74; PULSE 80; RESP 20; O2SAT 95
[2020-05-01 02:59] LABS: Glucose Point of Care 117 mg/dL (70-110)
[2020-05-01 04:11] VITALS: BP 130/79; PULSE 82; RESP 22; O2SAT 94
[2020-05-01 05:43] VITALS: BP 126/81; PULSE 84; RESP 22; O2SAT 90
== END 2020-05-01 06:06 | disposition home or self-care (01) ==
PROVIDERS: Emergency Provider Emergency Medicine; PCP Family Medicine
DX: R53.1 Weakness (principal); E11.649 Type 2 diabetes mellitus with hypoglycemia without coma; Z79.4 Long term (current) use of insulin; Z79.82 Long term (current) use of aspirin; J44.9 Chronic obstructive pulmonary disease, unspecified; I11.0 Hypertensive heart disease with heart failure; I50.30 Unspecified diastolic (congestive) heart failure; E78.5 Hyperlipidemia, unspecified; E11.42 Type 2 diabetes mellitus with diabetic polyneuropathy; Z87.891 Personal history of nicotine dependence
CPT/HCPCS: 12345; 36416; 70450; 70496; 70498; 71045; 80053; 82962; 85025; 85610; 93005; 96374; 99282; 99284; Q9967

== ENCOUNTER 2020-05-03 11:36 | Emergency (ER) | payer MEDICARE, OTHER, SELFPAY ==
[2020-05-03 11:42] VITALS: BP 148/79; PULSE 105; RESP 18; TEMP 37.1; O2SAT 93; BMI 38.7
--- NOTE | 2020-05-03 13:11 | CT_ITS ---
WS: [id number] CT HEAD TECHNIQUE: Noncontrast CT of the head obtained from the skullbase to the vertex. CLINICAL INFORMATION: neuro deficiet COMPARISON: CT May 01, 2020 DLP: 876.[address] scans at [facility] use at least one of these dose optimization techniques: automat ed exposure control; mA and/or kV adjustment per patient size (includes targeted exams where dose is matched to clinical indication); or iterative reconstruction. FINDINGS: No evidence of intracranial hemorrhage or mass effect. Ventricular system and basal cisterns are john[place] nt. Mild to moderate small vessel changes with moderate parenchymal volume loss. Chronic lacunar inf arct left thalamus is unchanged. Secretions in the sphenoid sinus. Mastoid air cells well aerated. Paranasal sinuses and mastoid air cells are well aerated. .Normal visualized soft tissues. CT/CT head wo con* [id number] IMPRESSION: 1. No evidence of intracranial hemorrhage or mass effect. 2. Chronic lacunar infarct left thalamus. 3. Mild small vessel changes with moderate parenchymal volume loss. 4. No acute intracranial findings. Notified Long Lewis DO at 05/03/2020 2:08 PM.
--- NOTE | 2020-05-03 13:13 | ECG_ITS ---
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 Measurements Intervals [place] Rate: 90 P: 54 MO: 205 QRS: -27 QRSD: 109 T: 70 QT: 356 QTc: 438 Interpretive Statements SINUS RHYTHM MINIMAL VOLTAGE CRITERIA FOR LVH, CONSIDER NORMAL VARIANT [MEETS CRITERIA IN ONE OF: R(aVL), S(V1), R(V5), R(V5/V6)+S(V1)] POSSIBLE ANTERIOR MYOCARDIAL INFARCTION , OF INDETERMINATE AGE [30 ms Q WAVE IN V3/V4, OR R < 0.2 mV IN V4] Compared to ECG 05/01/2020 01:36:44 Myocardial infarct finding now present First degree AV block no longer present Intraventricular conduction delay no longer present Electronically Signed On 05-03-2020 20:21:45 CDT by Jony Keene M.D. [id number]
--- NOTE | 2020-05-03 13:13 | CT_ITS ---
WS: [id number] CT LUMBAR SPINE TECHNIQUE: Noncontrast CT of the lumbar spine with coronal and sagittal reformatted images. CLINICAL INFORMATION: leg wekness, back pain COMPARISON: MRI 2009 DLP: 2287.[address] scans at [facility] use at least one of these dose optimization techniques: automat ed exposure control; mA and/or kV adjustment per patient size (includes targeted exams where dose is matched to clinical indication); or iterative reconstruction. FINDINGS: Mild lumbar curve. No acute compression. Disc osteophyte complexes worse at L1-2 and L3-4. No acute appearing compression fractures. Left para-aortic and proximal iliac lymphadenopathy with lymph nodes measuring up to 2.7 x 2.2 CM. This could be further evaluated with CT abdomen pelvis. Left adrenal n odule measuring 16 mm Osteopenia. Small lucent lesions throughout the visualized lumbar spine and sacrum may be due to oste openia however metastatic disease and multiple myeloma not excluded. L1-L2: Disc osteophyte complex with a right pericentral protruding osteophyte. Narrowing of the subar ticular recess bilaterally. Moderate facet arthropathy. Foramen are patent. L2-L3: Mild disc bulging with osteophytic ridging. Mild right and no significant left foraminal narro wing. Moderate facet arthropathy. L3-L4: Central disc osteophyte protrusion. Moderate central canal stenosis. Impingement traversing L4 nerve roots. Moderate facet arthropathy. Mild left and no significant right foraminal narrowing. L4-L5: Tiny left subarticular disc protrusion with moderate central canal stenosis. Moderate facet ar thropathy. Annular bulging. Mild left greater than right foraminal narrowing. Advanced facet arthropa thy. L5-S1: Left eccentric disc osteophyte complex with moderate left and mild right foraminal narrowing. Crowding of the traversing left greater than right S1 nerve roots. Moderate facet arthropathy. CT/CT lumbar spine wo con* [id number] IMPRESSION: 1. Partially visualized extensive left periaortic and proximal iliac chain lym phadenopathy suspicious for malignancy. This can be further evaluated CT abdome n pelvis. Recommend correlation with clinical history. 2. Osteopenia with small lucent lesions throughout the visualized lumbar spine and sacrum can be seen with osteopenia, however multiple myeloma and metastati c disease not excluded. Recommend nuclear medicine bone scan for further evalua tion of the bony structures. 3. Moderate central canal stenosis L3-L4 and L4-L5 described above. 4. Impingement subarticular recess left L3-L4 and left L4-L5. Impingement tammi ersing left L5 nerve root. 5. Disc bulge L5-S1 with contact of the traversing left greater than right S1 nerve roots. 6. Mild to moderate foraminal narrowing worse at left L4-5 and left L5-S1. Con tact of the exiting left L5 nerve root laterally. 7. Moderate facet arthropathy L4-5. Notified Long Lewis DO at 05/03/2020 2:30 PM.
--- NOTE | 2020-05-03 13:13 | XR_ITS ---
WS: [id number] Portable AP upright chest, 05/03/2020 Clinical Data: dyspnea/cough Comparison: Portable chest, 05/01/2020. Findings: No nodules, masses or effusions are seen. The heart is enlarged. The pulmonary vascularity is not increased. No pneumonia or pneumothorax is seen. The aortic arch and descending aorta show tor tuosity. XR/XR chest 1V portable [id number] Impression: Atherosclerosis and cardiomegaly.
--- NOTE | 2020-05-03 13:16 | W.ED.GENADLT ---
HPI - General Adult General: Chief complaint: General Medical Stated complaint: BILATERAL LEG PAIN Time Seen by Provider: 05/03/20 13:16 History of Present Illness: HPI narrative: Patient is a 64-year-old female who comes to the ED with bilateral leg pain and swelling. Patient has a past medical history of diabetes type 2, peripheral neuropathy, HF, hypertension, degenerative disc disease and blood clots with PE. Symptoms started in the last 2 days. She rates the leg pain a 10 out of 10 and she says it feels like a burning pain in her feet bilaterally. Patient says she is also having problems moving both legs/ambulating and this symptom with acute onset starting about 5 days ago. Patient uses wheelchair and was able to do short transfers from wheelchair to bed or other chair independently. The past 5 days since onset of extremity problems patient says she needs help with any transfer from wheelchair to bed now. She states her legs just do not feel steady and difficult to move. Associated symptoms: Deny chest pain, dyspnea, headache(s), nausea, rash, palpitations or vomiting Review of Systems Const: Denies: fever(s), chills or fatigue Eyes: Denies: change in vision or eye discomfort ENMT: Denies: throat pain, odynophagia, nasal discharge or nasal congestion Card: Denies: chest pain, palpitations, edema, swelling of feet/ankles, dyspnea on exertion or orthopnea Resp: Denies: dyspnea, productive cough or non-productive cough GI: Denies: abdominal pain, nausea, vomiting, diarrhea, constipation or hematochezia : Denies: flank pain, dysuria or hematuria Musc: Reports: extremity pain (bilateral lower extremity) and extremity swelling (bilateral lower extremity); Denies: neck pain or back pain Skin/Breast: Denies: rash or new lesions Neuro: Denies: headache(s), numbness in extremities or weakness in extremities PFS ED PFSH: Medical History Chronic low back pain Chronic pain COPD (chronic obstructive pulmonary disease) DDD (degenerative disc disease), lumbar Diabetes Diastolic heart failure Encounter for long-term opiate analgesic use Generalized anxiety disorder GERD (gastroesophageal reflux disease) HTN (hypertension) Hyperlipidemia Long-term current use of opiate analgesic Lower extremity edema Major depressive disorder, recurrent severe without psychotic features Nicotine dependence, cigarettes, uncomplicated Pain management contract signed Peripheral neuropathy Surgical History Amputation of left great toe Herniated gastric pouch, complication of bariatric surgery History of ankle surgery History of appendectomy Hx of appendectomy Hx of hernia repair Family History Mother Diabetes Hypertension Other Stroke Social History Smoking and tobacco status: former smoker Quit status (tobacco): has quit using tobacco Former quit date comment: 1 WEEK AGO Second hand smoke exposure: Yes Alcohol intake: never Lives independently: Yes Household members: other Details: ROOMMATE Marital status: / Current occupational status: disabled History of recent travel: No Physical Exam Const: COMMON NORMALS: no acute distress, patient oriented x3 and alert GENERAL APPEARANCE: cooperative and comfortable HENMT: COMMON NORMALS: normocephalic HEAD & SCALP: normocephalic MOUTH: Normal oral and palatal mucosa present THROAT: posterior oropharynx normal and uvula midline Eye: COMMON NORMALS: Equal, round and reactive pupils present PUPIL: Yes Equal, round and reactive pupils present Neck/C-Spine: COMMON NORMALS: supple GENERAL: Yes normal visual inspection Resp: COMMON NORMALS: normal respiratory effort, No retractions, No use of accessory muscles and clear to auscultation bilaterally AUSCULTATION: clear to auscultation bilaterally Cardio: COMMON NORMALS: regular rate, regular rhythm, S1 normal heart sound present, S2 normal heart sound present, No gallops present (Cardio), No clicks present (Cardio) and No murmurs present (Cardio) RATE: regular rate RHYTHM: regular rhythm HEART SOUNDS: S1 normal heart sound present and S2 normal heart sound present PERIPHERAL PULSES: radial pulses present positive bilateral 2+ and dorsalis pedis present positive bilateral 1+ GI: COMMON NORMALS: Normal to inspection, nondistended, normoactive bowel sounds present, Soft to palpation and no masses PALPATION: Yes Soft to palpation and Yes Tenderness to palpation present (GI) (pt had tenderness to light palpation throughout the abdomen) : COMMON NORMALS: Yes no CVA tenderness BLADDER/KIDNEY EXAM: Yes no CVA tenderness Back/Pelvis: COMMON NORMALS: no CVA tenderness Extremity: NARRATIVE EXTREMITY EXAM: 1+ pedal pulses bilaterally. decreased sensation to feet bilaterally with light touch. GENERAL: Yes edema (1+ pitting edema in lower extremities.) Neuro: COMMON NORMALS: patient oriented x3 and moves all extremities SENSORIUM/ORIENTATION: Yes alert Skin: COMMON NORMALS: no rashes or lesions noted GENERAL SKIN EXAM: no rashes or lesions noted and dry skin Course Vital Signs: Vital signs: Vital Signs Temperature 98.7 F 05/03/20 11:42 Pulse Rate 105 H 05/03/20 11:42 Respiratory Rate 18 05/03/20 17:36 Blood Pressure 148/79 05/03/20 11:42 Pulse Oximetry 93 05/03/20 11:42 MDM - General Adult MDM Narrative: Medical decision making narrative: Patient is a 64-year-old female comes to the ED with bilateral leg swelling, weakness and difficulty ambulating. Patient has a past medical history of diabetes type 2, peripheral neuropathy, HF, hypertension, degenerative disc disease and blood clots with PE. Patient's baseline ambulatory status is using a wheelchair and transferring independently. Patient says currently now she has to transfer with help due to leg weakness. Patient has bilaterally 1+ pitting edema. Patient also had some generalized abdominal tenderness upon palpation. EKG showed normal sinus rhythm with no ST segment elevation or depression seen. Troponin were negative. BNP 76. UA showed multiple RBCs, white blood cells and bacteria, suggestive of UTI. Ultrasound venous duplex bilaterally ruled out blood clot/DVTs. Chest x-ray showed cardiomegaly. CT head showed no acute findings. CT lumbar spine showed lumbar spinal and sacrum lesions with periaortic and iliac chain lymphadenopathy identified. Also seen was some degenerative disc disease and some disc bulging and foraminal narrowing. Radiologist recommended CT of abdomen to further evaluate lymphadenopathy he had for patient to get full body nuclear med bone scan to better evaluate bone lesions for possible malignancy. CT abdomen was ordered to investigate lymphadenopathy and abdominal tenderness upon physical exam. CT of the abdomen showed no acute findings, but did identify retroperitoneal and bilateral iliac lymphadenopathy unchanged from previous imaging. Paperwork was filled out and given to case management to set up a nuclear medicine full body bone scan. Patient was discharged and put on an antibiotic for UTI and Medrol Dosepak for lower back degenerative disc disease and foraminal narrowing. I informed patient that case management will be contacting her to set up appointment outpatient with nuclear medicine to perform a full body bone scan. Return to ED precautions given. Follow-up with PCP in 7 to 10 days. Patient understood and agreed with plan. Lab Data: Attestation: I reviewed the patient's lab results. Labs: Lab Results 05/03/20 05/03/20 05/03/20 Range/Units 14:18 14:18 14:18 WBC 9.9 (4.0-10.0) 10^3/ uL RBC 4.14 (4.1-5.3) 10^6/u L Hgb 12.1 (11.5-15.3) g/dL Hct 39.1 (37.0-47.0) % MCV 94.4 (81-99) fL MCH 29.2 (28.0-34.0) pg MCHC 30.9 (30.0-36.0) g/dL RDW 14.0 (12.1-15.1) % Plt Count 286 (130-400) 10^3/c mm MPV 9.8 (7.4-10.4) fL Neut % (Auto) 77.5 % Lymph % (Auto) 11.2 % [place] % (Auto) 7.5 % Eos % (Auto) 3.1 % Baso % (Auto) 0.3 % Neut # (Auto) 7.64 (1.8-7.7) 10^3/u L Lymph # (Auto) 1.1 (0.8-4.8) 10^3/u L [place] # (Auto) 0.7 (0.2-0.9) 10^3/u L Eos # (Auto) 0.3 (0.0-0.8) 10^3/u L Baso # (Auto) 0.0 (0.0-0.1) 10^3/u L Nucleated RBC % (a uto) 0 % Nucleated RBCs # 0.0 /100WBC Sodium 137 (136-145) mmol/L Potassium 4.2 (3.5-5.1) mmol/L Chloride 101 (98-107) mmol/L Carbon Dioxide 26 (22-29) mmol/L Anion Gap 14.2 (5-19) BUN 18 (8-23) mg/dL Creatinine 1.4 H (0.5-0.9) mg/dL GFR Calculation 37.9 L (90-130) mL/min Glucose 141 H (65-115) mg/dL Calculated Osmolal ity 283 L (285-295) mOsm/k g Calcium 9.1 (8.5-10.5) mg/dL Total Bilirubin 0.2 (0.15-1.2) mg/dL AST 16 (0-32) U/L ALT 12 (0-33) U/L Alkaline Phosphata se 83 (35-105) IU/L Troponin T Gen 5 n g/L 33 H (0-10) ng/L Troponin T 120 Min carolyn (0-10) ng/L Delta Troponin T (0-10) ABS# NT-Pro-B Natriuret Pep 76 (0-125) pg/mL Total Protein 7.8 (6.6-8.7) g/dL Albumin 3.4 L (3.5-5.2) g/dL Globulin 4.4 (1.3-4.6) g/dL Urine Color (Yellow) Urine Appearance (CLEAR) Urine pH (5-7) Ur Specific Gravit y (1.005-1.030) Urine Protein (Negative) Urine Glucose (UA) (Normal) Urine Ketones (Negative) Urine Blood (Negative) Urine Nitrate (Negative) Urine Bilirubin (Negative) Urine Urobilinogen (Negative) mg/dL Ur Leukocyte Lida ase (Negative) Urine RBC (0-2) /hpf Urine WBC (0-5) /hpf Ur Squamous Epith Cells (0-5) /hpf Amorphous Sediment Urine Bacteria (NONE) /hpf 05/03/20 05/03/20 Range/Units 15:10 16:47 WBC (4.0-10.0) 10^3/ uL RBC (4.1-5.3) 10^6/u L Hgb (11.5-15.3) g/dL Hct (37.0-47.0) % MCV (81-99) fL MCH (28.0-34.0) pg MCHC (30.0-36.0) g/dL RDW (12.1-15.1) % Plt Count (130-400) 10^3/c mm MPV (7.4-10.4) fL Neut % (Auto) % Lymph % (Auto) % [place] % (Auto) % Eos % (Auto) % Baso % (Auto) % Neut # (Auto) (1.8-7.7) 10^3/u L Lymph # (Auto) (0.8-4.8) 10^3/u L [place] # (Auto) (0.2-0.9) 10^3/u L Eos # (Auto) (0.0-0.8) 10^3/u L Baso # (Auto) (0.0-0.1) 10^3/u L Nucleated RBC % (a uto) % Nucleated RBCs # /100WBC Sodium (136-145) mmol/L Potassium (3.5-5.1) mmol/L Chloride (98-107) mmol/L Carbon Dioxide (22-29) mmol/L Anion Gap (5-19) BUN (8-23) mg/dL Creatinine (0.5-0.9) mg/dL GFR Calculation (90-130) mL/min Glucose (65-115) mg/dL Calculated Osmolal ity (285-295) mOsm/k g Calcium (8.5-10.5) mg/dL Total Bilirubin (0.15-1.2) mg/dL AST (0-32) U/L ALT (0-33) U/L Alkaline Phosphata se (35-105) IU/L Troponin T Gen 5 n g/L (0-10) ng/L Troponin T 120 Min carolyn 28.68 H (0-10) ng/L Delta Troponin T -4.32 L (0-10) ABS# NT-Pro-B Natriuret Pep (0-125) pg/mL Total Protein (6.6-8.7) g/dL Albumin (3.5-5.2) g/dL Globulin (1.3-4.6) g/dL Urine Color Yellow (Yellow) Urine Appearance Cloudy (CLEAR) Urine pH 5 (5-7) Ur Specific Gravit y 1.020 (1.005-1.030) Urine Protein 1+ H (Negative) Urine Glucose (UA) Norm (Normal) Urine Ketones Negative (Negative) Urine Blood 3+ H (Negative) Urine Nitrate Negative (Negative) Urine Bilirubin 1+ H (Negative) Urine Urobilinogen Norm (Negative) mg/dL Ur Leukocyte Lida ase 1+ H (Negative) Urine RBC >100 H (0-2) /hpf Urine WBC 5-10 H (0-5) /hpf Ur Squamous Epith Cells 25-40 H (0-5) /hpf Amorphous Sediment Not Reportable Urine Bacteria 2+ H (NONE) /hpf Imaging Data^: CXR: Attestation: I personally reviewed and interpreted this imaging study as follows: Radiologist's impression: [address] [place] [address] XRay Report Signed Patient: Carol Bustos Unit #: [id number] : 1955 Age/Sex: 64 / F ADM Date: 05/03/20 Loc: ER Room/Bed: Attending Dr: Ordering Provider/Ordering MD: Long Lewis DO Date of Service: 05/03/20 Procedure(s): XR chest 1V portable [id number] Accession Number(s): [id number] Report Number: [id number] WS: [id number] Portable AP upright chest, 05/03/2020 Clinical Data: dyspnea/cough Comparison: Portable chest, 05/01/2020. Findings: No nodules, masses or effusions are seen. The heart is enlarged. The pulmonary vascularity is not increased. No pneumonia or pneumothorax is seen. The aortic arch and descending aorta show tortuosity. XR/XR chest 1V portable [id number] Impression: Atherosclerosis and cardiomegaly. Dictated By: Kayla Zaman MD Signed By: Kayla Zaman MD Signed Date/Time: 05/03/201401 DD/ 1401 Vascular: Attestation: I personally reviewed and interpreted this imaging study as follows: Radiologist's impression: CV venous duplex lower extremities bilaterally?prelim report no DVTs or blood clots seen. CT Head: Attestation: I personally reviewed and interpreted this imaging study as follows: Radiologist's impression: [address] [place] [address] CT Scan Report Signed Patient: Carol Bustos Unit #: [id number] : 1955 Age/Sex: 64 / F ADM Date: 05/03/20 Loc: ER Room/Bed: Attending Dr: Ordering Provider/Ordering MD: Long Lewis DO Date of Service: 05/03/20 Procedure(s): CT head wo con* [id number] Accession Number(s): [id number] Report Number: [id number] WS: [id number] CT HEAD TECHNIQUE: Noncontrast CT of the head obtained from the skullbase to the vertex. CLINICAL INFORMATION: neuro deficiet COMPARISON: CT May 01, 2020 DLP: 876.[address] scans at [facility] use at least one of these dose optimization techniques: automated exposure control; mA and/or kV adjustment per patient size (includes targeted exams where dose is matched to clinical indication); or iterative reconstruction. FINDINGS: No evidence of intracranial hemorrhage or mass effect. Ventricular system and basal cisterns are patent. Mild to moderate small vessel changes with moderate parenchymal volume loss. Chronic lacunar infarct left thalamus is unchanged. Secretions in the sphenoid sinus. Mastoid air cells well aerated. Paranasal sinuses and mastoid air cells are well aerated. .Normal visualized soft tissues. CT/CT head wo con* [id number] IMPRESSION: 1. No evidence of intracranial hemorrhage or mass effect. 2. Chronic lacunar infarct left thalamus. 3. Mild small vessel changes with moderate parenchymal volume loss. 4. No acute intracranial findings. Notified Long Lewis DO at 05/03/2020 2:08 PM. Dictated By: Cristobal West MD Signed By: Cristobal West MD Signed Date/Time: 05/03/20 1410 DD/ [address]: Attestation: I personally reviewed and interpreted this imaging study as follows: Radiologist's impression: [address] [address] [address] Scan Report Signed Patient: Carol Bustos Unit #: [id number] : 1955 Age/Sex: 64 / F ADM Date: 05/03/20 Loc: ER Room/Bed: Attending Dr: Ordering Provider/Ordering MD: Long Lewis DO Date of Service: 05/03/20 Procedure(s): CT lumbar spine wo con* [id number] Accession Number(s): [id number] Report Number: [id number] WS: [id number] CT LUMBAR SPINE TECHNIQUE: Noncontrast CT of the lumbar spine with coronal and sagittal reformatted images. CLINICAL INFORMATION: leg wekness, back pain COMPARISON: MRI 2009 DLP: 2287.[address] scans at [facility] use at least one of these dose optimization techniques: automated exposure control; mA and/or kV adjustment per patient size (includes targeted exams where dose is matched to clinical indication); or iterative reconstruction. FINDINGS: Mild lumbar curve. No acute compression. Disc osteophyte complexes worse at L1-2 and L3-4. No acute appearing compression fractures. Left para-aortic and proximal iliac lymphadenopathy with lymph nodes measuring up to 2.7 x 2.2 CM. This could be further evaluated with CT abdomen pelvis. Left adrenal nodule measuring 16 mm Osteopenia. Small lucent lesions throughout the visualized lumbar spine and sacrum may be due to osteopenia however metastatic disease and multiple myeloma not excluded. L1-L2: Disc osteophyte complex with a right pericentral protruding osteophyte. Narrowing of the subarticular recess bilaterally. Moderate facet arthropathy. Foramen are patent. L2-L3: Mild disc bulging with osteophytic ridging. Mild right and no significant left foraminal narrowing. Moderate facet arthropathy. L3-L4: Central disc osteophyte protrusion. Moderate central canal stenosis. Impingement traversing L4 nerve roots. Moderate facet arthropathy. Mild left and no significant right foraminal narrowing. L4-L5: Tiny left subarticular disc protrusion with moderate central canal stenosis. Moderate facet arthropathy. Annular bulging. Mild left greater than right foraminal narrowing. Advanced facet arthropathy. L5-S1: Left eccentric disc osteophyte complex with moderate left and mild right foraminal narrowing. Crowding of the traversing left greater than right S1 nerve roots. Moderate facet arthropathy. CT/CT lumbar spine wo con* [id number] IMPRESSION: 1. Partially visualized extensive left periaortic and proximal iliac chain lymphadenopathy suspicious for malignancy. This can be further evaluated CT abdomen pelvis. Recommend correlation with clinical history. 2. Osteopenia with small lucent lesions throughout the visualized lumbar spine and sacrum can be seen with osteopenia, however multiple myeloma and metastatic disease not excluded. Recommend nuclear medicine bone scan for further evaluation of the bony structures. 3. Moderate central canal stenosis L3-L4 and L4-L5 described above. 4. Impingement subarticular recess left L3-L4 and left L4-L5. Impingement traversing left L5 nerve root. 5. Disc bulge L5-S1 with contact of the traversing left greater than right S1 nerve roots. 6. Mild to moderate foraminal narrowing worse at left L4-5 and left L5-S1. Contact of the exiting left L5 nerve root laterally. 7. Moderate facet arthropathy L4-5. Notified Long Lewis DO at 05/03/2020 2:30 PM. Dictated By: Cristobal West MD Signed By: Cristobal West MD Signed Date/Time: 05/03/20 143 DD/ 1410 CT Abd/Pel: Attestation: I personally reviewed and interpreted this imaging study as follows: Radiologist's impression: [place] [id number] CT Scan Report Signed Patient: Carol Bustos Unit #: [id number] : 1955 Age/Sex: 64 / F ADM Date: 05/03/20 Loc: ER Room/Bed: Attending Dr: Ordering Provider/Ordering MD: Dileep Avalos Date of Service: 05/03/20 Procedure(s): CT abdomen pelvis [facility] [address] Accession Number(s): [id number] Report Number: [id number] WS: [id number] CT scan of the abdomen and pelvis with IV contrast. Additional two-dimensional coronal and sagittal reconstruction was performed. 05/03/2020 Clinical Data: tenderness to abdomen Comparison: CT chest, abdomen and pelvis, 03/29/2020. DLP: 1823.[address] scans at [facility] use at least one of these dose optimization techniques: automated exposure control; mA and/or kV adjustment per patient size (includes targeted exams where dose is matched to clinical indication); or iterative reconstruction. Findings: The lower lungs show no nodules, masses or effusions. Subcarinal colby calcification is present. The liver, gallbladder, spleen and pancreas are normal. The left adrenal gland is enlarged and 2.5 cm but unchanged from before. The kidneys show modest excretion from the left kidney and none from the right. No cysts, masses, hydronephrosis or renal calculi are seen.. The abdominal aorta is normal in size with calcification in the wall.. No appendicitis or diverticulitis is seen. There are sigmoid and descending colon diverticula. There is retroperitoneal lymphadenopathy which extends to the inguinal area. The largest left inguinal node measures 3.0 cm. No abscess, ascites, mass, obstruction or free air is seen. The uterus is enlarged with its greatest oblique dimension 13.9 cm. The bladder is unremarkable. No inguinal hernia is seen. The lumbar and lower thoracic vertebral bodies show osteoarthritic change. There is degenerative disc narrowing at L3-L4 and L5-S1. The anterior lower pelvic subcutaneous tissue shows increased signal on the patient could have cellulitis. CT/CT abdomen pelvis wo con [id number] Impression: 1. Uterine enlargement unchanged. 2. Retroperitoneal and bilateral iliac lymphadenopathy unchanged. 3. Increased signal over the lower anterior pelvic subcutaneous tissue and the patient could have cellulitis. 4. Poor contrast excretion with only contrast noted in the left kidney and left ureter. Dictated By: Kayla Zaman MD Signed By: Kayla Zaman MD Signed Date/Time: 05/03/20 1602 DD/ 1547 EKG Data^: EKG 1: Attestation: I personally reviewed and interpreted this EKG as follows: EKG interpretation date: 05/03/20 Interpretation: Normal sinus rhythm, 90 bpm, no ST segment elevation or depression seen. Computer generated interpretation: Head CT 05/03/20 13:11 IMPRESSION: 1. No evidence of intracranial hemorrhage or mass effect. 2. Chronic lacunar infarct left thalamus. 3. Mild small vessel changes with moderate parenchymal volume loss. 4. No acute intracranial findings. Notified Long Lewis DO at 05/03/2020 2:08 PM. Chest X-Ray 05/03/20 13:13 Impression: Atherosclerosis and cardiomegaly. Lumbar Spine CT 05/03/20 13:13 IMPRESSION: 1. Partially visualized extensive left periaortic and proximal iliac chain lymphadenopathy suspicious for malignancy. This can be further evaluated CT abdomen pelvis. Recommend correlation with clinical history. 2. Osteopenia with small lucent lesions throughout the visualized lumbar spine and sacrum can be seen with osteopenia, however multiple myeloma and metastatic disease not excluded. Recommend nuclear medicine bone scan for further evaluation of the bony structures. 3. Moderate central canal stenosis L3-L4 and L4-L5 described above. 4. Impingement subarticular recess left L3-L4 and left L4-L5. Impingement traversing left L5 nerve root. 5. Disc bulge L5-S1 with contact of the traversing left greater than right S1 nerve roots. 6. Mild to moderate foraminal narrowing worse at left L4-5 and left L5-S1. Contact of the exiting left L5 nerve root laterally. 7. Moderate facet arthropathy L4-5. Notified Long Lewis DO at 05/03/2020 2:30 PM. Abdomen/Pelvis CT 05/03/20 15:24 Impression: 1. Uterine enlargement unchanged. 2. Retroperitoneal and bilateral iliac lymphadenopathy unchanged. 3. Increased signal over the lower anterior pelvic subcutaneous tissue and the patient could have cellulitis. 4. Poor contrast excretion with only contrast noted in the left kidney and left ureter. Discharge Plan Discharge Patient Disposition: Home Clinical Impression: Lesion of lumbar spine, Lymphadenopathy, periaortic, Bulging lumbar disc, DDD (degenerative disc disease), lumbar, Lower extremity pain, bilateral UTI (urinary tract infection) Qualifiers: Urinary tract infection type: acute cystitis Hematuria presence: with hematuria Qualified Code(s): N30.01 - Acute cystitis with hematuria Condition: Stable Prescriptions: New Bactrim DS 800-160 mg tablet 1 tab PO BID 5 Days Qty: 10 RF: 0 Medrol (Daniel) 4 mg tablets,dose pack See Rx Instructions .ROUTE .COMPLEX Qty: 21 RF: 0 No Action Colace Clear 50 mg capsule 50 mg PO DAILY RF: 0 metoprolol tartrate 50 mg tablet 50 mg PO DAILY RF: 0 furosemide 40 mg tablet 40 mg PO BID 90 Days Qty: 180 RF: 3 potassium chloride 20 mEq tablet extended release 20 meq PO BID Qty: 180 RF: 3 metformin 500 mg tablet extended release 24 hr 1,000 mg PO DAILY RF: 0 atorvastatin 10 mg tablet 10 mg PO DAILY RF: 0 amlodipine 10 mg tablet 10 mg PO DAILY RF: 0 losartan-hydrochlorothiazide 100-25 mg tablet 1 tab PO DAILY RF: 0 montelukast [Singulair] 10 mg tablet 10 mg PO DAILY RF: 0 Humulin N NPH U-100 Insulin 100 unit/mL suspension See Rx Instructions SUBCUT BID RF: 0 insulin lispro [Humalog U-100 Insulin] 100 unit/mL solution See Rx Instructions SUBCUT TID RF: 0 Toujeo Max U-300 SoloStar 300 unit/mL (3 mL) insulin pen 100 unit SUBCUT .QHS RF: 0 Bydureon 2 mg/0.65 mL pen injector 2 mg SUBCUT .WEEKLY RF: 0 hydrocodone-acetaminophen 10-325 mg tablet 1 tab PO .five daily PRN (Reason: pain) 30 Days Qty: 150 RF: 0 Hold Instructions: Home Medication placed on hold at Doctor's office Abilify 10 mg tablet 10 mg PO QAM Qty: 90 RF: 2 venlafaxine [Effexor XR] 75 mg capsule,extended release 24hr 75 mg PO QAM Qty: 90 RF: 2 venlafaxine [Effexor XR] 150 mg capsule,extended release 24hr 150 mg PO QAM Qty: 90 RF: 2 isosorbide mononitrate 30 mg tablet extended release 24 hr 30 mg PO DAILY Qty: 90 RF: 3 pantoprazole 40 mg Tablet,Delayed Release (Dr/Ec) 40 mg PO DAILY RF: 0 Eliquis 5 mg tablet 5 mg PO DAILY RF: 0 trazodone 100 mg tablet 100 - 200 mg PO .bedtime PRN (Reason: sleep) RF: 0 Discharge Orders: Discharge Order (Routine); Ordered 05/03/20 Ordered By: Dileep Avalos Referrals: Bonita Villasenor MD [Primary Care Provider] - Discharge Diet: Cardiac and Low Salt Discharge Activity: Increase activity as tolerated Activity Restrictions/Additional Instructions: Follow-up with medical provider as directed. Case management will be contacting you in the next several days to set up nuclear med full body bone scan. Take medications as prescribed. Continue taking all home meds. Return to the ER or your medical provider if condition worsens. Please read and understand discharge instructions. If any questions, please ask. Discharge Date/Time: 05/03/20 17:40 Coding Level of Care Code ED Animal Shelter Clerk for [place] Fwd Exam Comprehensive
--- NOTE | 2020-05-03 13:28 | USCV_ITS ---
Carol Bustos Age: 64 Gender: F : 1955 Exam Date: 05/03/2020 14:27 Ordering Phys: Dileep Avalos Technologist: Maribel Lorenz Exam Location: [facility] [place] Indication: SWELLING HISTORY: Lower extremity swelling. PROCEDURES: Venous duplex imaging was performed in bilateral lower extremities. The following venous structures were evaluated: common femoral vein, profunda vein, proximal portion of the greater saphenous vein, superficial femoral vein, and the popliteal vein. In addition, the posterior tibial and peroneal trunk were evaluated. FINDINGS: Normal 2-D Doppler and augmentation and compressibility throughout the lower extremity venous structures. Additional imaging through the proximal calf veins also reveals no thrombus. Limited evaluation of the greater saphenous vein is patent with no thrombus.. CONCLUSIONS No evidence of right lower extremity DVT. No evidence of left lower extremity DVT. Cristobal West MD (Electronically Signed) Final Date: 03 May 2020 16:26 S
[2020-05-03] MEDS: HYDROcodone-acetaminophen 10-325 mg Tablet 1 TAB PO (14:19)
[2020-05-03 14:29] LABS: Basophils % 0.3 %; Eosinophils # 0.3 10^3/uL (0.0-0.8); Eosinophils % 3.1 %; Hematocrit 39.1 % (37.0-47.0); Hemoglobin 12.1 g/dL (11.5-15.3); Lymphocytes # 1.1 10^3/uL (0.8-4.8); Lymphocytes % 11.2 %; Mean Corpuscular HGB Conc 30.9 g/dL (30.0-36.0); Mean Corpuscular Hemoglobin 29.2 pg (28.0-34.0); Mean Corpuscular Volume 94.4 fL (81-99); Mean Platelet Volume 9.8 fL (7.4-10.4); Monocytes # 0.7 10^3/uL (0.2-0.9); Monocytes % 7.5 %; Neutrophils # 7.64 10^3/uL (1.8-7.7); Neutrophils % 77.5 %; Nucleated Red Blood Cells % 0 %; Platelet Count 286 10^3/cmm (130-400); Red Blood Count 4.14 10^6/uL (4.1-5.3); White Blood Count 9.9 10^3/uL (4.0-10.0)
[2020-05-03 15:07] LABS: Alanine Aminotransferase 12 U/L (0-33); Albumin Level 3.4 g/dL (3.5-5.2); Alkaline Phosphatase 83 IU/L (35-105); Anion Gap 14.2 (5-19); Aspartate Amino Transferase 16 U/L (0-32); Blood Urea Nitrogen 18 mg/dL (8-23); Calcium 9.1 mg/dL (8.5-10.5); Carbon Dioxide 26 mmol/L (22-29); Chloride 101 mmol/L (98-107); Globulin 4.4 g/dL (1.3-4.6); Glomerular Filtration Rate 37.9 mL/min (90-130); Glucose 141 mg/dL (65-115); NT Pro B Type Natriuretic Pept 76 pg/mL (0-125); Osmolality Calculated 283 mOsm/kg (285-295); Potassium 4.2 mmol/L (3.5-5.1); Sodium 137 mmol/L (136-145); Total Bilirubin 0.2 mg/dL (0.15-1.2); Total Protein 7.8 g/dL (6.6-8.7)
--- NOTE | 2020-05-03 15:24 | CT_ITS ---
WS: [id number] CT scan of the abdomen and pelvis with IV contrast. Additional two-dimensional coronal and sagittal r econstruction was performed. 05/03/2020 Clinical Data: tenderness to abdomen Comparison: CT chest, abdomen and pelvis, 03/29/2020. DLP: 1823.[address] scans at [facility] use at least one of these dose optimization techniques: automat ed exposure control; mA and/or kV adjustment per patient size (includes targeted exams where dose is matched to clinical indication); or iterative reconstruction. Findings: The lower lungs show no nodules, masses or effusions. Subcarinal colby calcification is present. The liver, gallbladder, spleen and pancreas are normal. The left adrenal gland is enlarged and 2.5 cm but unchanged from before. The kidneys show modest excretion from the left kidney and none from the right. No cysts, masses, hyd ronephrosis or renal calculi are seen.. The abdominal aorta is normal in size with calcification in the wall.. No appendicitis or diverticulitis is seen. There are sigmoid and descending colon diverticula. There is retroperitoneal lymphadenopathy which extends to the inguinal area. The largest left inguinal node measures 3.0 cm. No abscess, ascites, mass, obstruction or free air is seen. The uterus is enlarged with its greatest oblique dimension 13.9 cm. The bladder is unremarkable. No inguinal hernia is seen. The lumbar and lower thoracic vertebral bodies show osteoarthritic change. There is degenerative disc narrowing at L3-L4 and L5-S1. The anterior lower pelvic subcutaneous tissue shows increased signal o n the patient could have cellulitis. CT/CT abdomen pelvis wo con [id number] Impression: 1. Uterine enlargement unchanged. 2. Retroperitoneal and bilateral iliac lymphadenopathy unchanged. 3. Increased signal over the lower anterior pelvic subcutaneous tissue and the patient could have cellulitis. 4. Poor contrast excretion with only contrast noted in the left kidney and left ureter.
[2020-05-03 15:26] LABS: Troponin T (5th) Once 33 ng/L (0-10)
[2020-05-03 16:21] LABS: Glucose Urine UA Norm (Normal); Ketones Urine Negative (Negative); Nitrate Urine Negative (Negative); Urine Appearance Cloudy (CLEAR); Urine Color Yellow (Yellow); pH Urine 5 (5-7)
[2020-05-03 16:22] LABS: Protein Urine 1+ (Negative)
[2020-05-03 16:23] LABS: Add Urine Microscopic? YES; Bilirubin Urine 1+ (Negative); Blood Urine 3+ (Negative); Leukocyte Esterase Urine 1+ (Negative); Urobilinogen Urine Norm (Negative)
[2020-05-03 16:28] LABS: Add Urine Culture? No; Bacteria Urine 2+ /hpf; RBC Urine >100 /hpf (0-2); Squamous Epithelial Cell Urine 25-40 /hpf (0-5)
[2020-05-03 17:17] LABS: Troponin 5 2HR 28.68 ng/L (0-10)
[2020-05-03 17:36] VITALS: RESP 18
[2020-05-03] MEDS: oxyCODONE-APAP 5-325 mg Tablet 1 TAB PO (17:36)
[2020-05-03 18:04] LABS: Troponin 5 2HR Delta -4.32 ABS# (0-10)
--- NOTE | 2020-05-04 13:06 | DCPLANNER ---
manager nc had message to schedule an outpatient bone scan for patient. manager nc faxed order to centralized scheduling. manager nc will call for appointment information.
--- NOTE | 2020-05-10 08:27 | DCPLANNER ---
Patient has a bone scan scheduled for Thursday, May 25, 2020 at 9:30 and 11:30. Centralized scheduling will call patient with appointment information.
--- NOTE | 2020-05-29 15:32 | DCPLANNER ---
Patient had a bone scan scheduled for 05.25.20 - bone scan was cancelled.
== END 2020-05-03 17:40 | disposition home or self-care (01) ==
PROVIDERS: Family Medicine; Emergency Provider Physician Assistant; PCP Family Medicine
DX: M79.605 Pain in left leg (principal); M79.604 Pain in right leg; M51.36 Other intervertebral disc degeneration, lumbar region; M48.9 Spondylopathy, unspecified; R59.1 Generalized enlarged lymph nodes; M51.26 Other intervertebral disc displacement, lumbar region; N30.01 Acute cystitis with hematuria; Z79.01 Long term (current) use of anticoagulants; Z79.4 Long term (current) use of insulin; I11.0 Hypertensive heart disease with heart failure; I50.30 Unspecified diastolic (congestive) heart failure; E78.5 Hyperlipidemia, unspecified; E11.42 Type 2 diabetes mellitus with diabetic polyneuropathy; Z87.891 Personal history of nicotine dependence
CPT/HCPCS: 12345; 36415; 70450; 71045; 72131; 74176; 80053; 81001; 83880; 84484; 85025; 93005; 93970; 96372; 99282; J2930

== ENCOUNTER 2020-05-05 12:51 | Inpatient (IN) | payer MEDICARE, OTHER, SELFPAY ==
[2020-05-05] VITALS (10 sets, daily range): BP systolic 121–142; BP diastolic 65–83; PULSE 89–106; RESP 17–25; TEMP 36.4–37.1; O2SAT 90–96; BMI 32.3
--- NOTE | 2020-05-05 13:11 | CTR_ITS ---
PROCEDURE INFORMATION: Exam: CT Cervical Spine Without Contrast Exam date and time: 05/05/2020 1:22 PM Age: 64 years old Clinical indication: Injury or trauma; Fall; Initial encounter; Blunt trauma; Additional info: AMS, fall TECHNIQUE: Imaging protocol: Computed tomography images of the cervical spine without contrast. Radiation optimization: All CT scans at this facility use at least one of these dose optimization techniques: automated exposure control; mA and/or kV adjustment per patient size (includes targeted exams where dose is matched to clinical indication); or iterative reconstruction. COMPARISON: CT Cervical Spine wo* [id number] 03/25/2017 1:51 AM RADIATION DOSE METRICS: Total DLP (mGy-cm): 881.45 FINDINGS: Vertebrae: No acute fracture. Normal alignment. Degenerative change is identified in the spine. There is disc space narrowing and osteophyte formation especially at C5/6 and C6/7. Soft tissues: Unremarkable. Lungs: Lung apices are normal. CT/CT cervical spin wo con* [id number] IMPRESSION: There is no evidence for fracture or facet dislocation. Radiation Dose CTDIVOL = (mGy): DLP = 881.45 (mGy-cm)
--- NOTE | 2020-05-05 13:11 | CTR_ITS ---
PROCEDURE INFORMATION: Exam: CT Head Without Contrast Exam date and time: 05/05/2020 1:22 PM Age: 64 years old Clinical indication: Injury or trauma; Fall; Additional info: AMS, fall, head injury TECHNIQUE: Imaging protocol: Computed tomography of the head without contrast. Radiation optimization: All CT scans at this facility use at least one of these dose optimization techniques: automated exposure control; mA and/or kV adjustment per patient size (includes targeted exams where dose is matched to clinical indication); or iterative reconstruction. COMPARISON: CT head wo con* [id number] 05/03/2020 1:37 PM RADIATION DOSE METRICS: Total DLP (mGy-cm): 913.33 FINDINGS: Brain: Moderate white matter disease and volume loss are identified. There is no acute infarct or edema. No hemorrhage. Ventricles: Normal. No ventriculomegaly. Bones/joints: Unremarkable. No acute fracture. Sinuses: Visualized sinuses are unremarkable. No fluid levels. Mastoid air cells: Visualized mastoid air cells are well aerated. Soft tissues: Unremarkable. CT/CT head wo con* [id number] IMPRESSION: There are no acute concerning abnormalities. Radiation Dose CTDIVOL = (mGy): DLP = 913.33 (mGy-cm)
--- NOTE | 2020-05-05 13:38 | XRR_ITS ---
PROCEDURE INFORMATION: Exam: XR Chest, 1 View Exam date and time: 05/05/2020 1:58 PM Age: 64 years old Clinical indication: Dyspnea; Additional info: AMS TECHNIQUE: Imaging protocol: XR of the chest Views: 1 view. COMPARISON: CR XR chest 1V portable [id number] 05/03/2020 1:48 PM FINDINGS: Lungs: Unremarkable. No consolidation. Pleural space: Unremarkable. No pleural effusion. No pneumothorax. Heart/Mediastinum: Unremarkable. No cardiomegaly. Bones/joints: Unremarkable. XR/XR chest 1V portable [id number] IMPRESSION: No acute findings.
[2020-05-05 13:49] LABS: Basophils % 0.3 %; Eosinophils # 0.3 10^3/uL (0.0-0.8); Eosinophils % 2.7 %; Hematocrit 39.2 % (37.0-47.0); Hemoglobin 12.3 g/dL (11.5-15.3); Lymphocytes # 0.8 10^3/uL (0.8-4.8); Mean Corpuscular HGB Conc 31.4 g/dL (30.0-36.0); Mean Corpuscular Hemoglobin 29.1 pg (28.0-34.0); Mean Corpuscular Volume 92.9 fL (81-99); Mean Platelet Volume 10.6 fL (7.4-10.4); Monocytes # 0.9 10^3/uL (0.2-0.9); Neutrophils # 9.58 10^3/uL (1.8-7.7); Neutrophils % 81.6 %; Nucleated Red Blood Cells % 0 %; Platelet Count 296 10^3/cmm (130-400); Red Blood Count 4.22 10^6/uL (4.1-5.3); Red Cell Distribution Width 14.1 % (12.1-15.1); White Blood Count 11.8 10^3/uL (4.0-10.0)
[2020-05-05 13:58] LABS: Alanine Aminotransferase 10 U/L (0-33); Albumin Level 3.5 g/dL (3.5-5.2); Alkaline Phosphatase 66 IU/L (35-105); Aspartate Amino Transferase 9 U/L (0-32); Blood Urea Nitrogen 23 mg/dL (8-23); Calcium 9.2 mg/dL (8.5-10.5); Carbon Dioxide 26 mmol/L (22-29); Chloride 100 mmol/L (98-107); Globulin 3.5 g/dL (1.3-4.6); Glomerular Filtration Rate 32.5 mL/min (90-130); Glucose 138 mg/dL (65-115); Osmolality Calculated 283 mOsm/kg (285-295); Sodium 137 mmol/L (136-145); Total Bilirubin 0.2 mg/dL (0.15-1.2)
[2020-05-05 13:59] LABS: Lactate (Lactic Acid level) 1.5 mmol/L (0.5-2.2)
[2020-05-05 14:37] LABS: Amphetamines Screen Urine Negative (Negative); Barbiturates Screen Urine Negative (Negative); Benzodiazepines Screen Urine Negative (Negative); Cocaine Screen Urine Negative (Negative); Opiate Screen Urine Positive (Negative); PCP Screen Urine Negative (Negative); THC Screen Urine Negative (Negative)
[2020-05-05 14:43] LABS: Add Urine Microscopic? YES; Bilirubin Urine Neg (Negative); Blood Urine 2+ (Negative); Glucose Urine UA Norm (Normal); Ketones Urine Negative (Negative); Leukocyte Esterase Urine Negative (Negative); Nitrate Urine Negative (Negative); Protein Urine 1+ (Negative); Specific Gravity, Urine 1.015 (1.005-1.030); Urine Appearance SL Hazy (CLEAR); Urine Color Yellow (Yellow); Urobilinogen Urine Norm (Negative); pH Urine 5 (5-7)
[2020-05-05 14:44] LABS: Add Urine Culture? No; Amorphous Sediment Urine 2+ /hpf; Bacteria Urine 1+ /hpf; RBC Urine 0-4 /hpf (0-2); Squamous Epithelial Cell Urine 0-4 /hpf (0-5)
--- NOTE | 2020-05-05 14:49 | W.ED.OVERDOS ---
HPI - Overdose General: Chief Complaint: Overdose Stated Complaint: FALL X2 Time Seen by Provider: 05/05/20 13:11 History of Present Illness: HPI Narrative: This patient is a 64-year-old female who presents today after falling. There is concern for overdose. She admits to taking 5 hydrocodone at a time along with 5 trazodone. She is prescribed these medications but obviously not in these doses. She has a history of diabetes and neuropathy. She generally gets around with a wheelchair. She has a boyfriend named Jesus who helps her at home. She is covered with bruises and has had multiple falls recently. It is not clear what of these are new and which are old. She has been in the ED couple of times this month with similar issues and has had imaging of her head, neck, abdomen, back. She obviously is not doing well at home. MD complaint: other (Unknown intention, unknown overdose) Onset (ago): unknown Review of Systems General: Reports: ROS unobtainable due to mental status [facility] ED PFSH: Medical History Chronic low back pain Chronic pain COPD (chronic obstructive pulmonary disease) DDD (degenerative disc disease), lumbar Diabetes Diastolic heart failure Encounter for long-term opiate analgesic use Generalized anxiety disorder GERD (gastroesophageal reflux disease) HTN (hypertension) Hyperlipidemia Long-term current use of opiate analgesic Lower extremity edema Major depressive disorder, recurrent severe without psychotic features Nicotine dependence, cigarettes, uncomplicated Pain management contract signed Peripheral neuropathy Surgical History Amputation of left great toe Herniated gastric pouch, complication of bariatric surgery History of ankle surgery History of appendectomy Hx of appendectomy Hx of hernia repair Family History Mother Diabetes Hypertension Other Stroke Social History Smoking and tobacco status: former smoker Quit status (tobacco): has quit using tobacco Former quit date comment: 1 WEEK AGO Second hand smoke exposure: Yes Alcohol intake: never Lives independently: Yes Household members: other Details: ROOMMATE Marital status: / Current occupational status: disabled History of recent travel: No Physical Exam Narrative: EXAM NARRATIVE: Will open eyes and answer questions. Protecting airway. Const: EXAM LIMITATIONS: altered mental status GENERAL APPEARANCE: disheveled, lethargic and appears older than stated age; not well hydrated NUTRITIONAL APPEARANCE: obese ORIENTATION/CONSCIOUSNESS: Yes awake, Yes oriented to person, Yes oriented to place and Yes lethargic; not oriented to time HENMT: HEAD & SCALP: hematoma (Forehead) MOUTH: moist mucous membranes abnormal (Very dry) Eye: COMMON NORMALS: Equal, round and reactive pupils present PUPIL: Yes Equal, round and reactive pupils present Neck/C-Spine: GENERAL: Yes normal visual inspection (Limited exam due to mental status) Chest: COMMONS NORMALS: normal inspection of the chest Resp: COMMON NORMALS: normal respiratory effort EFFORT & INSPECTION: Yes symmetric chest movement Cardio: COMMON NORMALS: regular rate, regular rhythm and No murmurs present (Cardio) RATE: regular rate RHYTHM: regular rhythm GI: INSPECTION: Yes abdominal distension PALPATION: Yes Tenderness to palpation present (GI) Back/Pelvis: COMMON NORMALS: thoraco-lumbar ROM normal (Not tested due to mental status) Extremity: NARRATIVE EXTREMITY EXAM: Status post amputation of toe on the left lower extremity. Some mild edema. Decrease sensation consistent with history of neuropathy extremities with multiple areas of bruising and skin tears Neuro: SENSORIUM/ORIENTATION: Yes oriented to person, Yes oriented to place, No oriented to time and Yes lethargic Course ED course: This patient is a 64-year-old female who has had multiple falls for unknown reasons but quite possibly related to medication misuse. She presents with some decreased mental status. She has been here several times with multiple imaging studies done. I only repeated a head and C-spine today. I did not find any new injuries. She will be admitted to the hospitalist for further management, further evaluation, possible placement as she has had these recurrent falls. Vital Signs: Vital signs: Vital Signs Temperature 98.2 F 05/05/20 19:51 Pulse Rate 99 05/05/20 19:51 Respiratory Rate 24 H 05/05/20 19:51 Blood Pressure 124/75 05/05/20 19:51 Pulse Oximetry 93 05/05/20 19:51 MDM - Overdose Lab Data: Labs: Lab Results 05/05/20 05/05/20 05/05/20 Range/Units 13:20 13:20 13:20 WBC 11.8 H (4.0-10.0) 10^3/ uL RBC 4.22 (4.1-5.3) 10^6/u L Hgb 12.3 (11.5-15.3) g/dL Hct 39.2 (37.0-47.0) % MCV 92.9 (81-99) fL MCH 29.1 (28.0-34.0) pg MCHC 31.4 (30.0-36.0) g/dL RDW 14.1 (12.1-15.1) % Plt Count 296 (130-400) 10^3/c mm MPV 10.6 H (7.4-10.4) fL Neut % (Auto) 81.6 % Lymph % (Auto) 7.0 % Beauregard % (Auto) 8.0 % Eos % (Auto) 2.7 % Baso % (Auto) 0.3 % Neut # (Auto) 9.58 H (1.8-7.7) 10^3/u L Lymph # (Auto) 0.8 (0.8-4.8) 10^3/u L Beauregard # (Auto) 0.9 (0.2-0.9) 10^3/u L Eos # (Auto) 0.3 (0.0-0.8) 10^3/u L Baso # (Auto) 0.0 (0.0-0.1) 10^3/u L Nucleated RBC % (a uto) 0 % Nucleated RBCs # 0.0 /100WBC PT 14.60 (12.1-14.9) SECO NDS INR 1.10 (0.8-1.2) Sodium 137 (136-145) mmol/L Potassium 4.0 (3.5-5.1) mmol/L Chloride 100 (98-107) mmol/L Carbon Dioxide 26 (22-29) mmol/L Anion Gap 15.0 (5-19) BUN 23 (8-23) mg/dL Creatinine 1.6 H (0.5-0.9) mg/dL GFR Calculation 32.5 L (90-130) mL/min Glucose 138 H (65-115) mg/dL Estimat Average Gl ucose Hemoglobin A1c (4.0-6.0) % Calculated Osmolal ity 283 L (285-295) mOsm/k g Lactate (0.5-2.2) mmol/L Calcium 9.2 (8.5-10.5) mg/dL Magnesium (1.7-2.3) mg/dL Total Bilirubin 0.2 (0.15-1.2) mg/dL AST 9 (0-32) U/L ALT 10 (0-33) U/L Alkaline Phosphata se 66 (35-105) IU/L Creatine Kinase (26-192) U/L NT-Pro-B Natriuret Pep (0-125) pg/mL Total Protein 7.0 (6.6-8.7) g/dL Albumin 3.5 (3.5-5.2) g/dL Globulin 3.5 (1.3-4.6) g/dL TSH (0.27-4.20) uIU/ mL Urine Color (Yellow) Urine Appearance (CLEAR) Urine pH (5-7) Ur Specific Gravit y (1.005-1.030) Urine Protein (Negative) Urine Glucose (UA) (Normal) Urine Ketones (Negative) Urine Blood (Negative) Urine Nitrate (Negative) Urine Bilirubin (Negative) Urine Urobilinogen (Negative) mg/dL Ur Leukocyte Lida ase (Negative) Urine RBC (0-2) /hpf Urine WBC (0-5) /hpf Ur Squamous Epith Cells (0-5) /hpf Amorphous Sediment /hpf Urine Bacteria (NONE) /hpf Salicylates (3-10) mg/dL Urine Opiates Scre en (Negative) ng/mL Acetaminophen (10-30) ug/mL Ur Barbiturates Sc reen (Negative) ng/mL Ur Phencyclidine S crn (Negative) ng/mL Ur Amphetamines Sc reen (Negative) ng/mL U Benzodiazepines Scrn (Negative) ng/mL Urine Cocaine Scre en (Negative) ng/mL U Marijuana (THC) Screen (Negative) ng/mL 05/05/20 05/05/20 05/05/20 Range/Units 13:20 13:20 13:20 WBC (4.0-10.0) 10^3/ uL RBC (4.1-5.3) 10^6/u L Hgb (11.5-15.3) g/dL Hct (37.0-47.0) % MCV (81-99) fL MCH (28.0-34.0) pg MCHC (30.0-36.0) g/dL RDW (12.1-15.1) % Plt Count (130-400) 10^3/c mm MPV (7.4-10.4) fL Neut % (Auto) % Lymph % (Auto) % Beauregard % (Auto) % Eos % (Auto) % Baso % (Auto) % Neut # (Auto) (1.8-7.7) 10^3/u L Lymph # (Auto) (0.8-4.8) 10^3/u L Beauregard # (Auto) (0.2-0.9) 10^3/u L Eos # (Auto) (0.0-0.8) 10^3/u L Baso # (Auto) (0.0-0.1) 10^3/u L Nucleated RBC % (a uto) % Nucleated RBCs # /100WBC PT (12.1-14.9) SECO NDS INR (0.8-1.2) Sodium (136-145) mmol/L Potassium (3.5-5.1) mmol/L Chloride (98-107) mmol/L Carbon Dioxide (22-29) mmol/L Anion Gap (5-19) BUN (8-23) mg/dL Creatinine (0.5-0.9) mg/dL GFR Calculation (90-130) mL/min Glucose (65-115) mg/dL Estimat Average Gl ucose Hemoglobin A1c (4.0-6.0) % Calculated Osmolal ity (285-295) mOsm/k g Lactate 1.5 (0.5-2.2) mmol/L Calcium (8.5-10.5) mg/dL Magnesium 2.3 (1.7-2.3) mg/dL Total Bilirubin (0.15-1.2) mg/dL AST (0-32) U/L ALT (0-33) U/L Alkaline Phosphata se (35-105) IU/L Creatine Kinase 28 (26-192) U/L NT-Pro-B Natriuret Pep (0-125) pg/mL Total Protein (6.6-8.7) g/dL Albumin (3.5-5.2) g/dL Globulin (1.3-4.6) g/dL TSH 1.68 1.69 (0.27-4.20) uIU/ mL Urine Color (Yellow) Urine Appearance (CLEAR) Urine pH (5-7) Ur Specific Gravit y (1.005-1.030) Urine Protein (Negative) Urine Glucose (UA) (Normal) Urine Ketones (Negative) Urine Blood (Negative) Urine Nitrate (Negative) Urine Bilirubin (Negative) Urine Urobilinogen (Negative) mg/dL Ur Leukocyte Lida ase (Negative) Urine RBC (0-2) /hpf Urine WBC (0-5) /hpf Ur Squamous Epith Cells (0-5) /hpf Amorphous Sediment /hpf Urine Bacteria (NONE) /hpf Salicylates < 0.3 L (3-10) mg/dL Urine Opiates Scre en (Negative) ng/mL Acetaminophen < 5.0 L (10-30) ug/mL Ur Barbiturates Sc reen (Negative) ng/mL Ur Phencyclidine S crn (Negative) ng/mL Ur Amphetamines Sc reen (Negative) ng/mL U Benzodiazepines Scrn (Negative) ng/mL Urine Cocaine Scre en (Negative) ng/mL U Marijuana (THC) Screen (Negative) ng/mL 05/05/20 05/05/20 05/05/20 Range/Units 13:20 13:20 13:55 WBC (4.0-10.0) 10^3/ uL RBC (4.1-5.3) 10^6/u L Hgb (11.5-15.3) g/dL Hct (37.0-47.0) % MCV (81-99) fL MCH (28.0-34.0) pg MCHC (30.0-36.0) g/dL RDW (12.1-15.1) % Plt Count (130-400) 10^3/c mm MPV (7.4-10.4) fL Neut % (Auto) % Lymph % (Auto) % Beauregard % (Auto) % Eos % (Auto) % Baso % (Auto) % Neut # (Auto) (1.8-7.7) 10^3/u L Lymph # (Auto) (0.8-4.8) 10^3/u L Beauregard # (Auto) (0.2-0.9) 10^3/u L Eos # (Auto) (0.0-0.8) 10^3/u L Baso # (Auto) (0.0-0.1) 10^3/u L Nucleated RBC % (a uto) % Nucleated RBCs # /100WBC PT (12.1-14.9) SECO NDS INR (0.8-1.2) Sodium (136-145) mmol/L Potassium (3.5-5.1) mmol/L Chloride (98-107) mmol/L Carbon Dioxide (22-29) mmol/L Anion Gap (5-19) BUN (8-23) mg/dL Creatinine (0.5-0.9) mg/dL GFR Calculation (90-130) mL/min Glucose (65-115) mg/dL Estimat Average Gl ucose 154 Hemoglobin A1c 7.0 H (4.0-6.0) % Calculated Osmolal ity (285-295) mOsm/k g Lactate (0.5-2.2) mmol/L Calcium (8.5-10.5) mg/dL Magnesium (1.7-2.3) mg/dL Total Bilirubin (0.15-1.2) mg/dL AST (0-32) U/L ALT (0-33) U/L Alkaline Phosphata se (35-105) IU/L Creatine Kinase (26-192) U/L NT-Pro-B Natriuret Pep 203 H (0-125) pg/mL Total Protein (6.6-8.7) g/dL Albumin (3.5-5.2) g/dL Globulin (1.3-4.6) g/dL TSH (0.27-4.20) uIU/ mL Urine Color Yellow (Yellow) Urine Appearance Sl hazy (CLEAR) Urine pH 5 (5-7) Ur Specific Gravit y 1.015 (1.005-1.030) Urine Protein 1+ H (Negative) Urine Glucose (UA) Norm (Normal) Urine Ketones Negative (Negative) Urine Blood 2+ H (Negative) Urine Nitrate Negative (Negative) Urine Bilirubin Neg (Negative) Urine Urobilinogen Norm (Negative) mg/dL Ur Leukocyte Lida ase Negative (Negative) Urine RBC 0-4 H (0-2) /hpf Urine WBC 5-10 H (0-5) /hpf Ur Squamous Epith Cells 0-4 H (0-5) /hpf Amorphous Sediment 2+ /hpf Urine Bacteria 1+ H (NONE) /hpf Salicylates (3-10) mg/dL Urine Opiates Scre en (Negative) ng/mL Acetaminophen (10-30) ug/mL Ur Barbiturates Sc reen (Negative) ng/mL Ur Phencyclidine S crn (Negative) ng/mL Ur Amphetamines Sc reen (Negative) ng/mL U Benzodiazepines Scrn (Negative) ng/mL Urine Cocaine Scre en (Negative) ng/mL U Marijuana (THC) Screen (Negative) ng/mL 05/05/20 Range/Units 13:55 WBC (4.0-10.0) 10^3/ uL RBC (4.1-5.3) 10^6/u L Hgb (11.5-15.3) g/dL Hct (37.0-47.0) % MCV (81-99) fL MCH (28.0-34.0) pg MCHC (30.0-36.0) g/dL RDW (12.1-15.1) % Plt Count (130-400) 10^3/c mm MPV (7.4-10.4) fL Neut % (Auto) % Lymph % (Auto) % Beauregard % (Auto) % Eos % (Auto) % Baso % (Auto) % Neut # (Auto) (1.8-7.7) 10^3/u L Lymph # (Auto) (0.8-4.8) 10^3/u L Beauregard # (Auto) (0.2-0.9) 10^3/u L Eos # (Auto) (0.0-0.8) 10^3/u L Baso # (Auto) (0.0-0.1) 10^3/u L Nucleated RBC % (a uto) % Nucleated RBCs # /100WBC PT (12.1-14.9) SECO NDS INR (0.8-1.2) Sodium (136-145) mmol/L Potassium (3.5-5.1) mmol/L Chloride (98-107) mmol/L Carbon Dioxide (22-29) mmol/L Anion Gap (5-19) BUN (8-23) mg/dL Creatinine (0.5-0.9) mg/dL GFR Calculation (90-130) mL/min Glucose (65-115) mg/dL Estimat Average Gl ucose Hemoglobin A1c (4.0-6.0) % Calculated Osmolal ity (285-295) mOsm/k g Lactate (0.5-2.2) mmol/L Calcium (8.5-10.5) mg/dL Magnesium (1.7-2.3) mg/dL Total Bilirubin (0.15-1.2) mg/dL AST (0-32) U/L ALT (0-33) U/L Alkaline Phosphata se (35-105) IU/L Creatine Kinase (26-192) U/L NT-Pro-B Natriuret Pep (0-125) pg/mL Total Protein (6.6-8.7) g/dL Albumin (3.5-5.2) g/dL Globulin (1.3-4.6) g/dL TSH (0.27-4.20) uIU/ mL Urine Color (Yellow) Urine Appearance (CLEAR) Urine pH (5-7) Ur Specific Gravit y (1.005-1.030) Urine Protein (Negative) Urine Glucose (UA) (Normal) Urine Ketones (Negative) Urine Blood (Negative) Urine Nitrate (Negative) Urine Bilirubin (Negative) Urine Urobilinogen (Negative) mg/dL Ur Leukocyte Lida ase (Negative) Urine RBC (0-2) /hpf Urine WBC (0-5) /hpf Ur Squamous Epith Cells (0-5) /hpf Amorphous Sediment /hpf Urine Bacteria (NONE) /hpf Salicylates (3-10) mg/dL Urine Opiates Scre en Positive H (Negative) ng/mL Acetaminophen (10-30) ug/mL Ur Barbiturates Sc reen Negative (Negative) ng/mL Ur Phencyclidine S crn Negative (Negative) ng/mL Ur Amphetamines Sc reen Negative (Negative) ng/mL U Benzodiazepines Scrn Negative (Negative) ng/mL Urine Cocaine Scre en Negative (Negative) ng/mL U Marijuana (THC) Screen Negative (Negative) ng/mL Discharge Plan Discharge Patient Disposition: Admitted As Inpatient Admit Provider: Laci Nickerson Discharge Date/Time: 05/05/20 16:16 Coding Level of Care Code ED Assembler Musical Equipment for Chg Fwd Exam Comprehensive
[2020-05-05] MEDS: sodium chloride 0.9% 1,000 ML 999 ML IV (15:07)
--- NOTE | 2020-05-05 15:25 | PC.NURSE ---
PATIENT SWABBED FOR COVID AT THIS TIME
[2020-05-05 15:29] LABS: Creatine Phosphokinase 28 U/L (26-192); Magnesium 2.3 mg/dL (1.7-2.3); Thyroid Stimulating Hormone 1.68 uIU/mL (0.27-4.20)
[2020-05-05 15:50] LABS: ABG PCO2 50.5 mmHg (35-45); ABG PH Result 7.35 (7.35-7.45); Arterial Blood Gas Hematocrit 36.5 % (37-47); Base Excess ABG 1.2 mmol/L (-2.0-2.0); Blood Gas Allen Test Pos; Blood Gas LPM 2.5 %; Blood Gas Operator Identificat CAK; Blood Gas Sample Site Radial, left; Blood Gas Sample Type Arterial; HCO3 ABG 27.5 mmol/L (22-26); Oxygen Device NC; PO2 ABG 76.2 mmHg (80.0-100.0)
[2020-05-05 16:01] LABS: SARS Covid-2 Antigen Negative (Negative)
[2020-05-05 16:09] LABS: Acetaminophen < 5.0 ug/mL (10-30); Salicylate < 0.3 mg/dL (3-10)
[2020-05-05 17:11] LABS: Glucose Point of Care 125 mg/dL (70-110)
--- NOTE | 2020-05-05 17:30 | PM.HP ---
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 Some of the history was obtained from patient, some of the history was obtained by patient's caregiver sarahy. Patient tells me that this morning she woke up at roughly 730, she got ready to get up out of bed, she held out onto the rail, but she just felt weak, and her knees gave out on her, she had worsening numbness and pain in her bilateral lower extremities, she fell to the floor, she spent roughly an hour on the floor, EMS were called out to her home, who helped her off the floor back into bed. But a few hours after, as patient was trying to get up out of bed again she fell due to pain, numbness, weakness, her neuropathy as she says in her bilateral lower extremities. Patient uses hydrocodone 10 for her neuropathy, she has been out of the medication for about a week, has not been taking the medication. She denies taking any other medications, denies taking other pain medications, denies any other drug use. Denies drinking alcohol. Patient tells me that she has had a poor appetite for many months, has had significant weight loss although she cannot quantify how much. Denies headaches, blurry vision, nausea, no vomiting. No fevers, no chills. No chest pain, no shortness of breath. Does have abdominal pain. Primarily in the right lower quadrant in the left upper quadrant. Has back pain. No urinary or bowel incontinence. I spoke to Sarahy, no strokelike symptoms reported, or seen, no facial droop, no slurring of speech, no paresthesias, no sudden weakness. No seizure-like episodes. No fevers, no chills, no exposure to COVID-19. Review of Systems Const: Denies: fever(s), chills, fatigue or malaise Eyes: Denies: change in vision or blurry vision ENMT: Denies: throat pain or nasal congestion Card: Denies: chest pain, palpitations or edema Resp: Denies: dyspnea, productive cough, non-productive cough or wheezing GI: Denies: abdominal pain, nausea, vomiting, hematemesis, diarrhea, constipation, hematochezia or melena : Denies: flank pain, dysuria or urinary frequency Musc: Denies: neck pain or back pain Skin/Breast: Denies: rash Neuro: Denies: headache(s), dizziness or vertigo Psych: Denies: anxiety or depression Endo: Denies: polyuria or polydipsia Medications/Allergies Home Medications Medication Instructions Recorded Confirmed Last Taken Type amlodipine 10 mg tablet 10 mg PO DAILY 09/22/19 05/05/20 05/05/20 History atorvastatin 10 mg tablet 10 mg PO DAILY 09/22/19 05/05/20 05/05/20 History exenatide microspheres 2 mg/0.65 2 mg SUBCUT .WEEKLY each 09/22/19 05/05/20 05/02/20 History mL subcutaneous pen injector insulin NPH isoph U-100 human 100 See Rx Instructions SUBCUT BID 09/22/19 05/05/20 05/05/20 History unit/mL subcutaneous suspension insulin glargine U-300 conc 300 100 unit SUBCUT .QHS ml 09/22/19 05/05/20 05/05/20 History unit/mL (3 mL) subcutaneous pen insulin lispro 100 unit/mL See Rx Instructions SUBCUT TID 09/22/19 05/05/20 05/02/20 History subcutaneous solution losartan 100 1 tab PO DAILY 09/22/19 05/05/20 05/05/20 History mg-hydrochlorothiazide 25 mg tablet metformin 500 mg tablet,extended 1,000 mg PO DAILY tab 09/22/19 05/05/20 05/05/20 History release 24 hr montelukast 10 mg tablet 10 mg PO DAILY 09/22/19 05/05/20 05/05/20 History isosorbide mononitrate 30 mg 30 mg PO DAILY #90 tab 11/18/19 05/05/20 05/05/20 Rx tablet,extended release 24 hr hydrocodone 10 mg-acetaminophen 1 tab PO .five daily PRN 30 Days 12/01/19 05/05/20 05/05/20 Rx 325 mg tablet #150 tab docusate sodium 50 mg capsule 50 mg PO DAILY 12/19/19 05/05/20 05/05/20 History aripiprazole 10 mg tablet 10 mg PO QAM #90 tab 02/01/20 05/05/20 05/05/20 Rx venlafaxine 150 mg 150 mg PO QAM #90 cap 02/01/20 05/05/20 05/05/20 Rx capsule,extended release 24 hr venlafaxine 75 mg capsule,extended 75 mg PO QAM #90 cap 02/01/20 05/05/20 05/05/20 Rx release 24 hr furosemide 40 mg tablet 40 mg PO BID 90 Days #180 tab 03/15/20 05/05/20 05/05/20 Rx metoprolol tartrate 50 mg tablet 50 mg PO DAILY tab 03/15/20 05/05/20 05/05/20 History potassium chloride 20 mEq 20 meq PO BID #180 tab 03/15/20 05/05/20 05/05/20 Rx tablet,extended release apixaban [Eliquis] 5 mg PO DAILY 05/03/20 05/05/20 05/05/20 History methylprednisolone [Medrol (Daniel)] See Rx Instructions .ROUTE 05/03/20 05/05/20 Unknown Rx .COMPLEX #21 each pantoprazole 40 mg PO DAILY 05/03/20 05/05/20 05/05/20 History sulfamethoxazole-trimethoprim 1 tab PO BID 5 Days #10 tab 05/03/20 05/05/20 Unknown Rx [Bactrim DS] trazodone 100 - 200 mg PO .bedtime PRN 05/03/20 05/05/20 05/04/20 History Allergies Allergy/AdvReac Type Severity Reaction Status Date / Time lisinopril Allergy Mild Cough Verified 05/03/20 15:08 pregabalin [From Lyrica] Allergy dysphoria Verified 05/03/20 15:08 PFSH Acute PFSH: Medical History Chronic low back pain Chronic pain COPD (chronic obstructive pulmonary disease) DDD (degenerative disc disease), lumbar Diabetes Diastolic heart failure Encounter for long-term opiate analgesic use Generalized anxiety disorder GERD (gastroesophageal reflux disease) HTN (hypertension) Hyperlipidemia Long-term current use of opiate analgesic Lower extremity edema Major depressive disorder, recurrent severe without psychotic features Nicotine dependence, cigarettes, uncomplicated Pain management contract signed Peripheral neuropathy Surgical History Amputation of left great toe Herniated gastric pouch, complication of bariatric surgery History of ankle surgery History of appendectomy Hx of appendectomy Hx of hernia repair Family History Mother Diabetes Hypertension Other Stroke Social History Smoking and tobacco status: former smoker Quit status (tobacco): has quit using tobacco Former quit date comment: 1 WEEK AGO Second hand smoke exposure: Yes Alcohol intake: never Lives independently: Yes Household members: other Details: ROOMMATE Marital status: / Current occupational status: disabled History of recent travel: No Vitals/I&O/Wt Last Vital Signs Temp 97.5 F L 05/05/20 16:52 Pulse 98 05/05/20 16:52 Resp 17 05/05/20 16:52 BP 125/66 05/05/20 16:52 Pulse Ox 90 05/05/20 16:52 05/05/20 05/05/20 05/05/20 06:59 14:59 22:59 Intake Total 1000 / 1000 Balance 1000 / 1000 Weight last 48 hrs Weight 90.718 kg Physical Exam Const: COMMON NORMALS: no acute distress and patient oriented x3 HENMT: COMMON NORMALS: normocephalic Eye: OTHER: Bilateral conjunctival hemorrhage Lymph: LYMPHATIC: no lymphadenopathy noted Chest: COMMONS NORMALS: normal inspection of the chest Resp: COMMON NORMALS: normal respiratory effort, No retractions, No use of accessory muscles and clear to auscultation bilaterally Cardio: COMMON NORMALS: no JVD, regular rate, regular rhythm, S1 normal heart sound present and S2 normal heart sound present GI: COMMON NORMALS: Normal to inspection, nondistended, normoactive bowel sounds present PALPATION: Yes Tenderness to palpation present (GI) OTHER: Has a right lower quadrant density : COMMON NORMALS: Yes no CVA tenderness Back/Pelvis: COMMON NORMALS: no CVA tenderness LUMBAR SPINE/LOWER BACK: Yes paraspinal muscle tenderness Extremity: NARRATIVE EXTREMITY EXAM: 1+ edema Neuro: COMMON NORMALS: patient oriented x3, CN's II-XII intact bilaterally and moves all extremities SPEECH: speech normal OTHER: Decreased sensation to pinprick versus dull sensation below the knees Urinary Catheter Management^: [place]: Cath Placed During This Visit: yes Reason for Continuing Indwelling Catheter: Accurate Measurement of Urinary Output in Critically Ill Patients Urinary Catheter Date of Insertion: 05/05/20 Urinary Catheter Time of Insertion: 13:57 Data : 05/05/20 13:20 05/05/20 13:20 A&P Assessment and plan (1) Lymphadenopathy, periaortic: -CT scan of the abdomen 05/03/2020 shows uterine enlargement, retroperitoneal and bilateral iliac lymphadenopathy -Lumbar spine CT imaging on 05/03/2020, shows extensive left periaortic and proximal iliac chain lymphadenopathy suspicious for malignancy, osteopenia with small lucent lesions throughout the visualized lumbar spine and sacrum can be seen with osteopenia however multiple myeloma and metastatic disease not excluded -CT chest on 04/12/2020 showed Occlusive pulmonary embolus in the posterior segmental branch and subsegmental branches of the right upper lobe pulmonary artery. Nonocclusive pulmonary emboli in the superior segmental branch of the right lower lobe pulmonary artery. Embolus in the distal left pulmonary artery with occlusive and nonocclusive emboli extending into virtually all segmental and subsegmental branches of the left upper, lingular, and lower lobe pulmonary arteries. -Patient has been falling quite frequently, weight loss, fatigue, malaise, weight loss -Given above findings, highly concerning for malignancy, primary unknown, multiple myeloma, lymphoma, uterine cancer, remain on the differential Plan: -Patient has already had so many imaging studies, will have to spend some time with radiology go over scans -For now given extensive uterine fibroids, as she has had a history of this, we will do a transvaginal ultrasound -We will speak to hematology oncology Status: Acute (2) UTI (urinary tract infection): Start on Rocephin, follow urine cultures- Status: Acute Qualifiers: Hematuria presence: with hematuria Urinary tract infection type: acute cystitis Qualified Code(s): N30.01 - Acute cystitis with hematuria (3) Chronic low back pain: -CT scan of the lumbar spine shows extensive disc disease, spinal stenosis, -Continue [place] 10 every 4 hours as needed for pain Status: Chronic (4) Diastolic heart failure: Status: Acute Qualifiers: Heart failure chronicity: chronic Qualified Code(s): I50.32 - Chronic diastolic (congestive) heart failure (5) HTN (hypertension): Status: Acute Qualifiers: Hypertension type: essential hypertension Qualified Code(s): I10 - Essential (primary) hypertension (6) Diabetes: -Kallie Status: Acute (7) Generalized anxiety disorder: Status: Chronic (8) Dehydration: -Start gentle IV hydration Status: Acute (9) Multiple falls: -Multifactorial secondary to lumbar disc disease, spinal stenosis, peripheral neuropathy -We will have PT OT work with patient Status: Acute (10) Lumbar radiculopathy, acute: Status: Acute (11) Lumbar disc disease: Status: Acute (12) Spinal stenosis: Status: Acute Attestations Medical Necessity Statement*: Patient requires hospitalization inpatient, greater than 2 midnights, for chronic low back pain, UTI, FAYE, extensive lymphadenopathy concerning for malignancy Coding Level of Care Code Acute Intelligence Specialist for [facility] Fwd Diagnoses Lymphadenopathy, periaortic R59.0 UTI (urinary tract infection) N30.01 Hematuria presence: with hematuria Urinary tract infection type: acute cystitis Chronic low back pain M54.5; G89.29 Diastolic heart failure I50.32 Heart failure chronicity: chronic HTN (hypertension) I10 Hypertension type: essential hypertension Diabetes E11.9 Generalized anxiety disorder F41.1 Dehydration E86.0 Multiple falls R29.6 Lumbar radiculopathy, acute M54.16 Lumbar disc disease M51.9 Spinal stenosis M48.00
[2020-05-05 17:34] LABS: Estmated Average Glucose 154
[2020-05-05 17:36] LABS: Thyroid Stimulating Hormone 1.69 uIU/mL (0.27-4.20)
[2020-05-05 17:40] LABS: NT Pro B Type Natriuretic Pept 203 pg/mL (0-125)
[2020-05-05] MEDS: potassium chloride ER 10 mEq Tablet 20 MEQ PO (18:27)
[2020-05-05] MEDS: cefTRIAXone 1,000 MG in sodium chloride 0.9% (plus) 50 ML 100 MG IV (18:27)
[2020-05-05] MEDS: nystatin powder 15 gm Btl 1 APPLIC TOPICAL (20:44)
[2020-05-05] MEDS: sodium chloride 0.9% 1,000 ML 75 ML IV (21:22)
[2020-05-05 22:01] LABS: Glucose Point of Care 112 mg/dL (70-110)
[2020-05-06] VITALS: BP 139/78; PULSE 97; RESP 24; TEMP 36.8; O2SAT 92
[2020-05-06] MEDS: HYDROcodone-acetaminophen 10-325 mg Tablet 1 TAB PO ×4 (00:52→21:28)
[2020-05-06 04:00] VITALS: BP 130/68; PULSE 87; RESP 20; TEMP 36.8; O2SAT 92
--- NOTE | 2020-05-06 05:44 | PC.NURSE ---
SHIFT SUMMARY Has not slept much tonight. Asked to be repositioned from side to side very frequently sometimes just few minutes after just being repositioned. Said she just could not get comfortable. Was medicated with po Hydrocodone for pain c/o in legs. Started out shift telling me she couldn't move her legs very much at all. This morning is moving them more and actually able to lift and hold them off bed and partially do heel, knee, zhao maneuver. Bending at knees now. Tells me she has been told she has lesions on her spine . Has a dry abrasion to left forehead from falll couple of days ago per pt. Skin tear to bruised left hand. Optifoam was applied. IV infusing at 75ml/hr rate. Keating catheter draining well
[2020-05-06] MEDS: venlafaxine ER (24HR) 150 mg Capsule PO (05:53)
[2020-05-06] MEDS: ARIPiprazole 10 mg Tablet PO (05:53)
[2020-05-06] MEDS: venlafaxine ER (24HR) 75 mg Capsule PO (05:53)
[2020-05-06 06:19] LABS: Basophils % 0.5 %; Eosinophils # 0.4 10^3/uL (0.0-0.8); Eosinophils % 5.1 %; Hematocrit 36.3 % (37.0-47.0); Hemoglobin 11.3 g/dL (11.5-15.3); Lymphocytes # 0.9 10^3/uL (0.8-4.8); Lymphocytes % 11.4 %; Mean Corpuscular HGB Conc 31.1 g/dL (30.0-36.0); Mean Corpuscular Hemoglobin 29.2 pg (28.0-34.0); Mean Corpuscular Volume 93.8 fL (81-99); Mean Platelet Volume 9.9 fL (7.4-10.4); Monocytes # 0.8 10^3/uL (0.2-0.9); Monocytes % 9.4 %; Neutrophils # 5.95 10^3/uL (1.8-7.7); Neutrophils % 73.5 %; Nucleated Red Blood Cells % 0 %; Platelet Count 295 10^3/cmm (130-400); Red Blood Count 3.87 10^6/uL (4.1-5.3); Red Cell Distribution Width 13.9 % (12.1-15.1); White Blood Count 8.1 10^3/uL (4.0-10.0)
[2020-05-06 06:54] LABS: Alanine Aminotransferase 8 U/L (0-33); Albumin Level 3.1 g/dL (3.5-5.2); Alkaline Phosphatase 65 IU/L (35-105); Anion Gap 11.9 (5-19); Aspartate Amino Transferase 13 U/L (0-32); Blood Urea Nitrogen 17 mg/dL (8-23); Calcium 9.3 mg/dL (8.5-10.5); Carbon Dioxide 26 mmol/L (22-29); Chloride 106 mmol/L (98-107); Globulin 3.6 g/dL (1.3-4.6); Glucose 76 mg/dL (65-115); Magnesium 2.3 mg/dL (1.7-2.3); Osmolality Calculated 285 mOsm/kg (285-295); Phosphorus 3.1 mg/dL (2.5-4.5); Potassium 3.9 mmol/L (3.5-5.1); Sodium 140 mmol/L (136-145); Total Bilirubin 0.2 mg/dL (0.15-1.2); Total Protein 6.7 g/dL (6.6-8.7)
[2020-05-06 07:24] LABS: Glucose Point of Care 85 mg/dL (70-110)
[2020-05-06 08:00] VITALS: BP 168/85; PULSE 90; RESP 16; TEMP 36.6; O2SAT 90
[2020-05-06] MEDS: nystatin powder 15 gm Btl 1 APPLIC TOPICAL ×2 (08:41→17:09)
[2020-05-06] MEDS: atorvastatin 40 mg Tablet 10 MG PO (08:41)
[2020-05-06] MEDS: isosorbide mononitrate ER 30 mg Tablet PO (08:42)
[2020-05-06] MEDS: pantoprazole DR 40 mg Tablet PO (08:42)
[2020-05-06] MEDS: potassium chloride ER 10 mEq Tablet 20 MEQ PO ×2 (08:42→17:10)
[2020-05-06] MEDS: metoprolol succinate ER (24 HR) 50 mg Tablet PO (08:42)
[2020-05-06] MEDS: montelukast sodium 10 mg Tablet PO (08:42)
[2020-05-06] MEDS: amlodipine 10 mg Tablet PO (08:42)
[2020-05-06] MEDS: apixaban 5 mg Tablet PO (08:43)
[2020-05-06 10:37] LABS: LAB Peripheral Smear Sent for Review
[2020-05-06 10:49] LABS: Glucose Point of Care 142 mg/dL (70-110)
[2020-05-06 12:00] VITALS: BP 155/75; PULSE 79; RESP 20; TEMP 36.6; O2SAT 98
[2020-05-06 14:18] LABS: CA 125 655.8 U/mL (0-35); Carcinoembryonic Antigen 3.3 ng/mL (0.0-4.7)
--- NOTE | 2020-05-06 15:07 | PC.NURSE ---
rounding on pt and observed with JUAN DANIEL Reynolds, that pt had bled from rectal area. pt had spots of dried, dark red blood around burke area and rectum. observed catheter area, did not appear to be the source of the bleed. observed rectum and notice what appears to look like a small hemorrhoid. asked pt if she has ever been told she had hemorrhoids, pt stated no. asked pt if bleeding from rectal area has occured before, pt stated that it happens on occasion and that she informed her primary Dr., Dr. Villasenor.
[2020-05-06 16:00] VITALS: BP 167/80; PULSE 70; TEMP 36.8; O2SAT 70
[2020-05-06 16:44] LABS: Glucose Point of Care 218 mg/dL (70-110)
[2020-05-06] MEDS: cefTRIAXone 1,000 MG in sodium chloride 0.9% (plus) 50 ML 100 MG IV (17:08)
--- NOTE | 2020-05-06 17:48 | USR_ITS ---
PROCEDURE INFORMATION: Exam: US Nonobstetric Pelvis; Complete Exam date and time: 05/06/2020 2:06 PM Age: 64 years old Clinical indication: Abnormal findings; Abnormal imaging test; Patient HX: Possible history of fibroids; Additional info: Uterine fibroids, has extensive lymphadnopath, burke aortic TECHNIQUE: Imaging protocol: Transabdominal pelvic nonobstetric ultrasound. Complete exam. Real time ultrasound with image documentation. COMPARISON: [place] [facility] [place]vic w TV 03/14/2019 2:00 PM FINDINGS: Uterus/cervix: Limited uterine evaluation. Uterus measures approximately 12.8 x 7.9 x 10.3 cm. Probable 6.7 cm fundal region fibroid. Endometrial echo stripe not identified. 2-3 cm hypoechoic area centrally, possible necrotic fibroid versus endometrial cavity fluid. Right adnexa: Right ovary not visualized. Left adnexa: Left ovary not visualized. Other: Very limited transabdominal study. US/US pelvic with transvaginal IMPRESSION: Limited exam. Probable 6.7 cm fundal fibroid. Possible endometrial cavity fluid versus central necrotic uterine fibroid. Neither ovary identified.
--- NOTE | 2020-05-06 18:12 | PC.NURSE ---
END OF SHIFT SUMMARY pt has been able to rest well this am and has been able to take PO meds well. pt has been A/Ox3, but has been slightly disoriented. pt reoriented, has been A/Ox4 since 1200. new IV started in R wrist/forearm and has been asymptomatic, patent. pt has been able to feed herself well and has been up to chair early this AM by this nurse and Jane, OT. pt transferred back to bed well with this nurse and Jane. pt has been working with KERI Copeland and has done well. pt is still mildly weak in lower extremities.
[2020-05-06 19:23] VITALS: BP 165/80; PULSE 84; RESP 22; TEMP 36.5; O2SAT 91
[2020-05-06] MEDS: sodium chloride 0.9% 1,000 ML 75 ML IV (19:56)
[2020-05-06] MEDS: trazodone 100 mg Tablet PO (21:28)
[2020-05-06 21:31] LABS: Glucose Point of Care 148 mg/dL (70-110)
--- NOTE | 2020-05-06 23:05 | PM.PN ---
Subjective Subjective: Interval history: This morning patient was examined, she states that she is feeling better, still has weakness, is really worried about having cancer given her lymphadenopathy, is agreeable to going to a snf, Vitals/I&O/Wt Last Vital Signs Temp 97.7 F 05/06/20 19:23 Pulse 84 05/06/20 19:23 Resp 22 H 05/06/20 19:23 BP 165/80 05/06/20 19:23 Pulse Ox 91 05/06/20 19:23 05/06/20 05/06/20 05/07/20 14:59 22:59 06:59 Intake Total 1220 / 1220 240 / 1460 Output Total 700 / 700 Balance 1220 / 1220 -460 / 760 Weight last 48 hrs Weight 90.718 kg Physical Exam Const: COMMON NORMALS: no acute distress and patient oriented x3 Eye: OTHER: Bilateral conjunctival hemorrhage Neck/C-Spine: COMMON NORMALS: no JVD Lymph: LYMPHATIC: no lymphadenopathy noted Chest: COMMONS NORMALS: normal inspection of the chest Resp: COMMON NORMALS: normal respiratory effort, No retractions, No use of accessory muscles and clear to auscultation bilaterally AUSCULTATION: clear to auscultation bilaterally Cardio: COMMON NORMALS: no JVD, regular rate, regular rhythm, S1 normal heart sound present and S2 normal heart sound present RATE: regular rate RHYTHM: regular rhythm HEART SOUNDS: S1 normal heart sound present and S2 normal heart sound present GI: COMMON NORMALS: Normal to inspection, nondistended, normoactive bowel sounds present PALPATION: Yes Tenderness to palpation present (GI) OTHER: Has a right lower quadrant density Neuro: COMMON NORMALS: patient oriented x3 Urinary Catheter Management^: [place]: Cath Placed During This Visit: yes Reason for Continuing Indwelling Catheter: Other Urinary Catheter Date of Insertion: 05/05/20 Urinary Catheter Time of Insertion: 13:57 Data : 05/06/20 05:28 05/06/20 05:28 A&P Assessment and plan (1) Lymphadenopathy, periaortic: -CT scan of the abdomen 05/03/2020 shows uterine enlargement, retroperitoneal and bilateral iliac lymphadenopathy -Lumbar spine CT imaging on 05/03/2020, shows extensive left periaortic and proximal iliac chain lymphadenopathy suspicious for malignancy, osteopenia with small lucent lesions throughout the visualized lumbar spine and sacrum can be seen with osteopenia however multiple myeloma and metastatic disease not excluded -CT chest on 04/12/2020 showed Occlusive pulmonary embolus in the posterior segmental branch and subsegmental branches of the right upper lobe pulmonary artery. Nonocclusive pulmonary emboli in the superior segmental branch of the right lower lobe pulmonary artery. Embolus in the distal left pulmonary artery with occlusive and nonocclusive emboli extending into virtually all segmental and subsegmental branches of the left upper, lingular, and lower lobe pulmonary arteries -pelvis us shows: Probable 6.7 cm fundal fibroid. Possible endometrial cavity fluid versus central necrotic uterine fibroid. Neither ovary identified. -ca 125 is 655.8 -Patient has been falling quite frequently, weight loss, fatigue, malaise, weight loss -Given above findings, highly concerning for malignancy, ovarian cancer? primary unknown, multiple myeloma, lymphoma, uterine cancer, broad differential Plan: -Patient has already had so many imaging studies, will have to spend some time with radiology go over scans to look for primary -We will discuss with hematology oncology about possible biopsy and primary -SPEP UPEP pending Status: Acute (2) UTI (urinary tract infection): Start on Rocephin, follow urine cultures- Status: Acute Qualifiers: Hematuria presence: with hematuria Urinary tract infection type: acute cystitis Qualified Code(s): N30.01 - Acute cystitis with hematuria (3) Chronic low back pain: -CT scan of the lumbar spine shows extensive disc disease, spinal stenosis, -Continue [place] 10 every 4 hours as needed for pain Status: Chronic (4) Diastolic heart failure: Status: Acute Qualifiers: Heart failure chronicity: chronic Qualified Code(s): I50.32 - Chronic diastolic (congestive) heart failure (5) HTN (hypertension): Status: Acute Qualifiers: Hypertension type: essential hypertension Qualified Code(s): I10 - Essential (primary) hypertension (6) Diabetes: -Kallie Status: Acute (7) Generalized anxiety disorder: Status: Chronic (8) Dehydration: -Start gentle IV hydration Status: Acute (9) Multiple falls: -Multifactorial secondary to lumbar disc disease, spinal stenosis, peripheral neuropathy -We will have PT OT work with patient Status: Acute (10) Lumbar radiculopathy, acute: Status: Acute (11) Lumbar disc disease: Status: Acute (12) Spinal stenosis: Status: Acute (13) FAYE (acute kidney injury): -cr 1.6 will monitor Status: Acute Attestations Medical Necessity Statement*: Requires hospitalization due to FAYE, multiple falls, significant lymphadenopathy, concerning for malignancy Coding Level of Care Code Acute Acid Polymerization Operator for g Fwd Diagnoses Lymphadenopathy, periaortic R59.0 UTI (urinary tract infection) N30.01 Hematuria presence: with hematuria Urinary tract infection type: acute cystitis Chronic low back pain M54.5; G89.29 Diastolic heart failure I50.32 Heart failure chronicity: chronic HTN (hypertension) I10 Hypertension type: essential hypertension Diabetes E11.9 Generalized anxiety disorder F41.1 Dehydration E86.0 Multiple falls R29.6 Lumbar radiculopathy, acute M54.16 Lumbar disc disease M51.9 Spinal stenosis M48.00 FAYE (acute kidney injury) N17.9
[2020-05-07] VITALS (9 sets, daily range): BP systolic 133–164; BP diastolic 70–85; PULSE 74–100; RESP 14–82; TEMP 36.6–37.3; O2SAT 92–96
[2020-05-07 06:13] LABS: Basophils % 0.3 %; Eosinophils # 0.6 10^3/uL (0.0-0.8); Eosinophils % 5.9 %; Hematocrit 36.9 % (37.0-47.0); Hemoglobin 11.4 g/dL (11.5-15.3); Lymphocytes # 0.8 10^3/uL (0.8-4.8); Lymphocytes % 8.7 %; Mean Corpuscular HGB Conc 30.9 g/dL (30.0-36.0); Mean Corpuscular Hemoglobin 29.4 pg (28.0-34.0); Mean Corpuscular Volume 95.1 fL (81-99); Mean Platelet Volume 9.9 fL (7.4-10.4); Monocytes # 0.8 10^3/uL (0.2-0.9); Monocytes % 8.9 %; Neutrophils # 7.02 10^3/uL (1.8-7.7); Neutrophils % 75.7 %; Nucleated Red Blood Cells % 0 %; Platelet Count 271 10^3/cmm (130-400); Red Blood Count 3.88 10^6/uL (4.1-5.3); Red Cell Distribution Width 13.9 % (12.1-15.1); White Blood Count 9.3 10^3/uL (4.0-10.0)
[2020-05-07] MEDS: venlafaxine ER (24HR) 150 mg Capsule PO (06:34)
[2020-05-07] MEDS: ARIPiprazole 10 mg Tablet PO (06:34)
[2020-05-07] MEDS: venlafaxine ER (24HR) 75 mg Capsule PO (06:34)
[2020-05-07 06:38] LABS: Alanine Aminotransferase 8 U/L (0-33); Albumin Level 3.4 g/dL (3.5-5.2); Alkaline Phosphatase 67 IU/L (35-105); Anion Gap 12.8 (5-19); Aspartate Amino Transferase 14 U/L (0-32); Blood Urea Nitrogen 14 mg/dL (8-23); Calcium 8.7 mg/dL (8.5-10.5); Carbon Dioxide 25 mmol/L (22-29); Chloride 106 mmol/L (98-107); Globulin 3.8 g/dL (1.3-4.6); Glomerular Filtration Rate 55.8 mL/min (90-130); Glucose 168 mg/dL (65-115); Magnesium 2.3 mg/dL (1.7-2.3); Osmolality Calculated 288 mOsm/kg (285-295); Phosphorus 3.2 mg/dL (2.5-4.5); Potassium 4.8 mmol/L (3.5-5.1); Sodium 139 mmol/L (136-145); Total Bilirubin 0.2 mg/dL (0.15-1.2); Total Protein 7.2 g/dL (6.6-8.7)
[2020-05-07 06:39] LABS: Creatinine Clr Calc Pharmacy 64.4808
[2020-05-07 09:03] LABS: Glucose Point of Care 177 mg/dL (70-110)
[2020-05-07] MEDS: isosorbide mononitrate ER 30 mg Tablet PO (09:43)
[2020-05-07] MEDS: HYDROcodone-acetaminophen 10-325 mg Tablet 1 TAB PO ×2 (09:43→22:05)
[2020-05-07] MEDS: potassium chloride ER 10 mEq Tablet 20 MEQ PO ×2 (09:43→17:54)
[2020-05-07] MEDS: montelukast sodium 10 mg Tablet PO (09:43)
[2020-05-07] MEDS: pantoprazole DR 40 mg Tablet PO (09:43)
[2020-05-07] MEDS: amlodipine 10 mg Tablet PO (09:43)
[2020-05-07] MEDS: apixaban 5 mg Tablet PO (09:43)
[2020-05-07] MEDS: atorvastatin 40 mg Tablet 10 MG PO (09:43)
[2020-05-07] MEDS: metoprolol succinate ER (24 HR) 50 mg Tablet PO (09:43)
[2020-05-07] MEDS: sodium chloride 0.9% 1,000 ML 75 ML IV (10:21)
[2020-05-07] MEDS: nystatin powder 15 gm Btl 1 APPLIC TOPICAL ×2 (10:21→17:57)
[2020-05-07 11:30] LABS: Glucose Point of Care 198 mg/dL (70-110)
--- NOTE | 2020-05-07 12:01 | PM.PN ---
Subjective Subjective: Interval history: Patient noted to have wheezing this morning on examination. On checking O2 sats it was at 87% on room air, put on supplemental O2 at 3 L/min. added duonebs. Tmax 99.1F. Medications: Reviewed: Yes Vitals/I&O/Wt Last Vital Signs Temp 99.0 F 05/07/20 08:36 Pulse 100 05/07/20 08:36 Resp 17 05/07/20 08:36 BP 154/85 05/07/20 08:36 Pulse Ox 94 05/07/20 08:36 05/06/20 05/07/20 05/07/20 22:59 06:59 14:59 Intake Total 360 / 1580 480 / 2060 1060 / 1060 Output Total 700 / 700 400 / 1100 Balance -340 / 880 80 / 960 1060 / 1060 Weight last 48 hrs Weight 90.718 kg Physical Exam Narrative: EXAM NARRATIVE: GEN: Awake, alert and oriented, no acute distress CVS: S1S2 N RS: Bilateral wheezing on auscultation. Abd: Soft, nt/nd , bs+ COLORING CHECKER: no focal neuro deficits Urinary Catheter Management^: [place]: Cath Placed During This Visit: yes Reason for Continuing Indwelling Catheter: Accurate Measurement of Urinary Output in Critically Ill Patients Urinary Catheter Date of Insertion: 05/05/20 Urinary Catheter Time of Insertion: 13:57 Data : 05/07/20 05:39 05/07/20 05:39 A&P Assessment and plan (1) Lymphadenopathy, periaortic: -Retroperitoneal lymphadenopathy, noted on serial CTs at least since March 2020. CT upon admission this time CT scan of the abdomen 05/03/2020 shows uterine enlargement, retroperitoneal and bilateral iliac lymphadenopathy -Lumbar spine CT imaging on 05/03/2020, shows extensive left periaortic and proximal iliac chain lymphadenopathy suspicious for malignancy, osteopenia with small lucent lesions throughout the visualized lumbar spine and sacrum can be seen with osteopenia however multiple myeloma and metastatic disease not excluded -CT chest on 04/12/2020 showed Occlusive pulmonary embolus in the posterior segmental branch and subsegmental branches of the right upper lobe pulmonary artery. Nonocclusive pulmonary emboli in the superior segmental branch of the right lower lobe pulmonary artery. Embolus in the distal left pulmonary artery with occlusive and nonocclusive emboli extending into virtually all segmental and subsegmental branches of the left upper, lingular, and lower lobe pulmonary arteries -pelvis us shows: Probable 6.7 cm fundal fibroid. Possible endometrial cavity fluid versus central necrotic uterine fibroid. Neither ovary identified. -ca 125 is 655.8 -Patient has been falling quite frequently, weight loss, fatigue, malaise, weight loss -Given above findings, highly concerning for malignancy, ovarian cancer? primary unknown, multiple myeloma, lymphoma, uterine cancer, broad differential Plan: -Patient has already had so many imaging studies, will have to spend some time with radiology go over scans to look for primary -We will discuss with hematology oncology about possible biopsy and primary -SPEP UPEP pending Status: Acute (2) UTI (urinary tract infection): Start on Rocephin, follow urine cultures- Status: Acute Qualifiers: Hematuria presence: with hematuria Urinary tract infection type: acute cystitis Qualified Code(s): N30.01 - Acute cystitis with hematuria (3) Chronic low back pain: -CT scan of the lumbar spine shows extensive disc disease, spinal stenosis, -Continue [place] 10 every 4 hours as needed for pain Status: Chronic (4) Diastolic heart failure: Status: Acute Qualifiers: Heart failure chronicity: chronic Qualified Code(s): I50.32 - Chronic diastolic (congestive) heart failure (5) HTN (hypertension): Status: Acute Qualifiers: Hypertension type: essential hypertension Qualified Code(s): I10 - Essential (primary) hypertension (6) Diabetes: -Kallie Status: Acute (7) Generalized anxiety disorder: Status: Chronic (8) Dehydration: -Start gentle IV hydration Status: Acute (9) Multiple falls: -Multifactorial secondary to lumbar disc disease, spinal stenosis, peripheral neuropathy -We will have PT OT work with patient Status: Acute (10) Lumbar radiculopathy, acute: Status: Acute (11) Lumbar disc disease: Status: Acute (12) Spinal stenosis: Status: Acute (13) FAYE (acute kidney injury): -cr 1.6 will monitor Status: Acute (14) Hypoxia: Status: Acute Additional A&P Information 64-year-old old lady with a history of peripheral neuropathy, hypertension, hyperlipidemia, recent extensive PE on Eliquis, diastolic heart failure, who presented to the hospital on May 05 with chief complaint of having sustained a fall at home. Reportedly this fall was at the setting of having being deconditioned and weak. She had also been complaining of gradual weight loss more subacutely. On CT of the abdomen and pelvis found to have retroperitoneal lymphadenopathy. #Retroperitoneal lymphadenopathy, seen on serial CTs at least since March 2020. Redemonstrated now. T scan of the abdomen 05/03/2020 shows uterine enlargement, retroperitoneal and bilateral iliac lymphadenopathy -Lumbar spine CT imaging on 05/03/2020, shows extensive left periaortic and proximal iliac chain lymphadenopathy suspicious for malignancy, osteopenia with small lucent lesions throughout the visualized lumbar spine and sacrum can be seen with osteopenia however multiple myeloma and metastatic disease not excluded. Together with a recent history of PE, this is concerning for malignancy. We will discuss with radiology if any lymph nodes are present in the axillary or groin area which may be amenable to superficial biopsies. SPEP and UPEP are pending at this time. Ca1 25 is elevated, however it is nonspecific at this present time transvaginal ultrasound was unable to visualize the ovaries. Uterus does appear to be with extensive uterine fibroids. No gross change in uterine size compared to 2019 ultrasound. #Urinary tract infection, currently on Rocephin. No urine culture results currently seen. #Noted to have new wheezing and hypoxia requiring 3 L/min of supplemental O2. DuoNebs added every 4 hours standing. Patient has a history of diastolic heart failure for which she follows with cardiology. Home dose of Lasix 40 mg p.o. twice daily has been on hold during admission. Additionally she is receiving some IV fluids. Will discontinue IV fluids today and resume Lasix. Check CXR Patient with a recent history of PE. I am uncertain as to why she is on Eliquis 5 mg p.o. daily as against twice daily.? h/o GI bleed, this will need to be confirmed # mtulialonzol maría, deconditioing Attestations Medical Necessity Statement*: new hypoxia, noted to be hweezing, iv diuresis, discussion with radiology if any lymph nodes amenable to biopsy Coding Level of Care Code Acute Retirement Benefits Specialist for g Fwd Diagnoses Lymphadenopathy, periaortic R59.0 UTI (urinary tract infection) N30.01 Hematuria presence: with hematuria Urinary tract infection type: acute cystitis Chronic low back pain M54.5; G89.29 Diastolic heart failure I50.32 Heart failure chronicity: chronic HTN (hypertension) I10 Hypertension type: essential hypertension Diabetes E11.9 Generalized anxiety disorder F41.1 Dehydration E86.0 Multiple falls R29.6 Lumbar radiculopathy, acute M54.16 Lumbar disc disease M51.9 Spinal stenosis M48.00 FAYE (acute kidney injury) N17.9 Hypoxia R09.02
--- NOTE | 2020-05-07 12:13 | PC.RESP ---
Pulmonary Rehab information to patient.
[2020-05-07 12:51] LABS: Creatinine, Random Urine 93 mg/dL (20-275); Protein, Total, Random 166 mg/dL (5-24); Protein/Creatinine Ratio 1.785 (0.021-0.161); Protein/Creatinine Ratio 1785 mg/g creat (21-161)
[2020-05-07] MEDS: ipratropium-albuterol 3 mL Neb INHALATION ×2 (15:05→19:59)
--- NOTE | 2020-05-07 15:21 | PC.RESP ---
Pulmonary Rehab information to patient.
[2020-05-07 15:43] LABS: Abnormal Protein Band 1 14 mg/dL (NONE DETECTED); Albumin,Urine Random 44 %; Alpha-1-Globulins Urine Random 4 %; Alpha-2-Globulins Urine Random 11 %; Beta-Globulin,Urine Random 11 %; Gamma Globulin,Urine Random 30 %
[2020-05-07 16:43] LABS: KAPPA LIGHT CHAIN, FREE, SERUM 69.5 mg/L (3.3-19.4); KAPPA/LAMBDA LIGHT CHAINS FREE 1.02 (0.26-1.65); LAMBDA LIGHT CHAIN, FREE, SERU 68.4 mg/L (5.7-26.3)
[2020-05-07 17:09] LABS: Glucose Point of Care 163 mg/dL (70-110)
--- NOTE | 2020-05-07 17:32 | XR_ITS ---
WS: [id number] EXAM: AP CHEST: PORTABLE UPRIGHT DATE OF EXAM: 05/07/2020, 1759 hours COMPARISON: Chest x-ray from 05/01/2020 and 05/05/2020 HISTORY: Patient is 64 years old with pulmonary edema. Follow-up. FINDINGS: The cardiac silhouette is stable considered enlarged The mediastinal contours are less well-define d on today's exam. Increasing perihilar markings are demonstrated. The pulmonary vascularity is con gested with suspected interstitial infiltrate and/or interstitial edema. Peripheral lungs are clear. Slight infiltrate medial aspect of both lung bases. There is no effusion or pneumothorax. No acute bony abnormality is seen. XR/XR chest 1V portable [id number] IMPRESSION: Increasing perihilar markings. Either this representing progressive pulmonary e haim or interstitial infiltrate.
[2020-05-07] MEDS: cefTRIAXone 1,000 MG in sodium chloride 0.9% (plus) 50 ML 100 MG IV (17:54)
[2020-05-07] MEDS: FUROsemide 10 mg/mL SDV 2mL 40 MG IVP (17:56)
[2020-05-07 21:16] LABS: Glucose Point of Care 179 mg/dL (70-110)
[2020-05-07] MEDS: trazodone 100 mg Tablet PO (23:53)
[2020-05-08] VITALS (11 sets, daily range): BP systolic 123–172; BP diastolic 69–78; PULSE 79–88; RESP 17–20; TEMP 36.9–37.2; O2SAT 92–96
[2020-05-08] MEDS: HYDROcodone-acetaminophen 10-325 mg Tablet 1 TAB PO (03:01)
[2020-05-08 05:46] LABS: Basophils % 0.4 %; Eosinophils # 0.4 10^3/uL (0.0-0.8); Eosinophils % 4.1 %; Hematocrit 37.2 % (37.0-47.0); Hemoglobin 11.2 g/dL (11.5-15.3); Lymphocytes # 0.9 10^3/uL (0.8-4.8); Lymphocytes % 9.3 %; Mean Corpuscular HGB Conc 30.1 g/dL (30.0-36.0); Mean Corpuscular Hemoglobin 29.4 pg (28.0-34.0); Mean Corpuscular Volume 97.6 fL (81-99); Mean Platelet Volume 9.7 fL (7.4-10.4); Monocytes % 10.2 %; Neutrophils # 7.11 10^3/uL (1.8-7.7); Neutrophils % 75.5 %; Nucleated Red Blood Cells % 0 %; Platelet Count 255 10^3/cmm (130-400); Red Blood Count 3.81 10^6/uL (4.1-5.3); Red Cell Distribution Width 13.8 % (12.1-15.1); White Blood Count 9.4 10^3/uL (4.0-10.0)
[2020-05-08 06:13] LABS: Alanine Aminotransferase 11 U/L (0-33); Albumin Level 3.1 g/dL (3.5-5.2); Alkaline Phosphatase 75 IU/L (35-105); Anion Gap 13.9 (5-19); Aspartate Amino Transferase 14 U/L (0-32); Blood Urea Nitrogen 14 mg/dL (8-23); Calcium 8.8 mg/dL (8.5-10.5); Carbon Dioxide 24 mmol/L (22-29); Chloride 103 mmol/L (98-107); Globulin 4.1 g/dL (1.3-4.6); Glucose 191 mg/dL (65-115); Magnesium 2.3 mg/dL (1.7-2.3); Osmolality Calculated 283 mOsm/kg (285-295); Phosphorus 3.1 mg/dL (2.5-4.5); Potassium 4.9 mmol/L (3.5-5.1); Sodium 136 mmol/L (136-145); Total Bilirubin 0.2 mg/dL (0.15-1.2); Total Protein 7.2 g/dL (6.6-8.7)
[2020-05-08] MEDS: venlafaxine ER (24HR) 150 mg Capsule PO (06:42)
[2020-05-08] MEDS: venlafaxine ER (24HR) 75 mg Capsule PO (06:42)
[2020-05-08] MEDS: ARIPiprazole 10 mg Tablet PO (06:42)
[2020-05-08 06:56] LABS: Glucose Point of Care 175 mg/dL (70-110)
[2020-05-08] MEDS: potassium chloride ER 10 mEq Tablet 20 MEQ PO (08:33)
[2020-05-08] MEDS: isosorbide mononitrate ER 30 mg Tablet PO (08:33)
[2020-05-08] MEDS: amlodipine 10 mg Tablet PO (08:33)
[2020-05-08] MEDS: apixaban 5 mg Tablet PO (08:33)
[2020-05-08] MEDS: montelukast sodium 10 mg Tablet PO (08:33)
[2020-05-08] MEDS: pantoprazole DR 40 mg Tablet PO (08:33)
[2020-05-08] MEDS: metoprolol succinate ER (24 HR) 50 mg Tablet PO (08:33)
[2020-05-08] MEDS: nystatin powder 15 gm Btl 1 APPLIC TOPICAL (08:33)
[2020-05-08] MEDS: atorvastatin 40 mg Tablet 10 MG PO (08:33)
--- NOTE | 2020-05-08 09:10 | PC.SOCIAL ---
IMM Page 2 of IMM explained to and signed by patient. She verbalizes understanding. Initialed, dated, and timed and placed in chart. Copy provided to patient.
[2020-05-08] MEDS: ipratropium-albuterol 3 mL Neb INHALATION ×2 (09:35→11:29)
[2020-05-08] MEDS: FUROsemide 10 mg/mL SDV 2mL 20 MG IVP (10:28)
[2020-05-08 11:06] LABS: Glucose Point of Care 228 mg/dL (70-110)
--- NOTE | 2020-05-08 11:26 | PM.DCS ---
Discharge Providers Date of Admission: 05/05/20 15:06 Date of Discharge: May 08, 2020 Attending Provider at Admission: Laci Nickerson MD Attending Provider at Discharge: Shantell Cuba MD Primary Care Provider: Bonita Villasenor MD Diagnoses at Discharge Discharge Diagnosis (1) Lymphadenopathy, periaortic: Status: Acute (2) UTI (urinary tract infection): Status: Acute Qualifiers: Hematuria presence: with hematuria Urinary tract infection type: acute cystitis Qualified Code(s): N30.01 - Acute cystitis with hematuria (3) Chronic low back pain: Status: Chronic (4) Diastolic heart failure: Status: Acute Qualifiers: Heart failure chronicity: chronic Qualified Code(s): I50.32 - Chronic diastolic (congestive) heart failure (5) HTN (hypertension): Status: Acute Qualifiers: Hypertension type: essential hypertension Qualified Code(s): I10 - Essential (primary) hypertension (6) Diabetes: Status: Acute (7) Generalized anxiety disorder: Status: Chronic (8) Dehydration: Status: Acute (9) Multiple falls: Status: Acute (10) Lumbar radiculopathy, acute: Status: Acute (11) Lumbar disc disease: Status: Acute (12) Spinal stenosis: Status: Acute (13) FAYE (acute kidney injury): Status: Acute (14) Hypoxia: Status: Acute Reason for Visit Reason for Visit: FALL X2 Hospital Course Discharge Summary: 64-year-old old lady with a history of peripheral neuropathy, hypertension, hyperlipidemia, recent extensive PE on Eliquis, diastolic heart failure, who presented to the hospital on May 05 with chief complaint of having sustained a fall at home. Reportedly this fall was at the setting of having being deconditioned and weak. She had also been complaining of gradual weight loss more subacutely. On CT of the abdomen and pelvis found to have retroperitoneal lymphadenopathy. #Retroperitoneal lymphadenopathy, seen on serial CTs at least since March 2020. Redemonstrated now. T scan of the abdomen 05/03/2020 shows uterine enlargement, retroperitoneal and bilateral iliac lymphadenopathy -Lumbar spine CT imaging on 05/03/2020, shows extensive left periaortic and proximal iliac chain lymphadenopathy suspicious for malignancy, osteopenia with small lucent lesions throughout the visualized lumbar spine and sacrum can be seen with osteopenia however multiple myeloma and metastatic disease not excluded. Together with a recent history of PE, this is concerning for malignancy. unfortunately none of these lymph nodes amenable to IR biopsy after discussion with Dr. Jones SPEP and UPEP are pending at this time. Ca1 25 is elevated, however it is nonspecific at this present time transvaginal ultrasound was unable to visualize the ovaries. Uterus does appear to be with extensive uterine fibroids. No gross change in uterine size compared to 2019 ultrasound, less likely to be sarcoma. IF indeed this is uterine sarcoma, diagostic approach would be via hysterectomy. Referral to general surgery as outpatient to see if lymph node biopsy may be a potential option laparopscopically. Also may need colonoscopy PET scan ordered for outpatient as will better define extent of lymphadenopathy, FDG avidity and if any amenable to potential biopsy. Referral to heme/onc clinic provided # Ct head negative for acute events #Urinary tract infection, currently on Rocephin, improved now, no complaints of dysuria. urine cx with superficial sari #Noted to have new wheezing and hypoxia requiring 3 L/min of supplemental O2. DuoNebs added every 4 hours standing. Patient has a history of diastolic heart failure for which she follows with cardiology. Home dose of Lasix 40 mg p.o. twice daily has been on hold during admission. Additionally she is receiving some IV fluids. CXR showed increased vascular congestion respiratory status improved after stopping IVF and diuresing with iv lasix. Now placed back on po Lasxi on discharge. Patient also has a recent history of PE from 03/2020. I am uncertain as to why she is on Eliquis 5 mg p.o. daily as against twice daily.? h/o GI bleed, this will need to be confirmed as outapatient with PCP # mtulipel falls related to deconditioing, PT/OT assessments taken All upadtes and results discussed with patient and life partner Max. Physical Exam Narrative: EXAM NARRATIVE: GEN: Awake, alert and oriented, no acute distress CVS: S1S2 N RS: CTA B/L Abd: Soft, nt/nd , bs+ [place] FARMER: no focal neuro deficits Urinary Catheter Management^: [place]: Cath Placed During This Visit: yes Reason for Continuing Indwelling Catheter: Acute Urinary Retention or Obstruction Urinary Catheter Date of Insertion: 05/05/20 Urinary Catheter Time of Insertion: 13:57 Discharge Data Data Completed and Pending: Completed Studies During Hospitalization Category Date Time Status CT cervical spin wo con* [id number] Stat Cat Scan 05/05/20 13:[address] head wo con* [id number] Stat Cat Scan 05/05/20 13:11 Completed XR chest 1V kevin ble [id number] Routine Exams 05/07/20 17:32 Completed XR chest 1V kevin ble [id number] Stat Exams 05/05/20 13:38 Completed US pelvic with tr ansvaginal Routine Ultrasound 05/06/20 17:48 Completed Labs from last 24 hours 05/08/20 05/08/20 05/08/20 10:58 06:40 04:58 WBC RBC Hgb Hct MCV MCH MCHC RDW Plt Count MPV Neut % (Auto) Lymph % (Auto) Wheeler % (Auto) Eos % (Auto) Baso % (Auto) Neut # (Auto) Lymph # (Auto) Wheeler # (Auto) Eos # (Auto) Baso # (Auto) Nucleated RBC % (a uto) Nucleated RBCs # Sodium 136 Potassium 4.9 Chloride 103 Carbon Dioxide 24 Anion Gap 13.9 BUN 14 Creatinine 1.1 H GFR Calculation 50.0 L Glucose 191 H POC Glucose 228 175 Calculated Osmolal ity 283 L Calcium 8.8 Phosphorus 3.1 Magnesium 2.3 Total Bilirubin 0.2 AST 14 ALT 11 Alkaline Phosphata se 75 Total Protein 7.2 Albumin 3.1 L Globulin 4.1 Cqis-0-Hivwyvtyzti in Ur Random Creatini ne Ur Random Albumin U Random Total Pro tein Protein/Creatinin Ratio Protein/Creat Rati o 24h U Random a-1-Globu nikita % U Random a-2-Globu nikita % U Random Beta Glob ulin U Random Gamma Amanda b U Abnormal Prot Ba nd 1 U Abnormal Prot Ba nd 2 U Abnormal Prot Ba nd 3 Urine PEP Interpre t Serum Immunofixati on Free [place] Light C hains Free Lambda Light Chain Free [place]/Lambda Ratio 05/08/20 05/07/20 05/07/20 04:58 20:53 16:48 WBC 9.4 RBC 3.81 L Hgb 11.2 L Hct 37.2 MCV 97.6 MCH 29.4 MCHC 30.1 RDW 13.8 Plt Count 255 MPV 9.7 Neut % (Auto) 75.5 Lymph % (Auto) 9.3 Wheeler % (Auto) 10.2 Eos % (Auto) 4.1 Baso % (Auto) 0.4 Neut # (Auto) 7.11 Lymph # (Auto) 0.9 Wheeler # (Auto) 1.0 H Eos # (Auto) 0.4 Baso # (Auto) 0.0 Nucleated RBC % (a uto) 0 Nucleated RBCs # 0.0 Sodium Potassium Chloride Carbon Dioxide Anion Gap BUN Creatinine GFR Calculation Glucose POC Glucose 179 163 Calculated Osmolal ity Calcium Phosphorus Magnesium Total Bilirubin AST ALT Alkaline Phosphata se Total Protein Albumin Globulin Jhez-2-Zjzatnegvrs in Ur Random Creatini ne Ur Random Albumin U Random Total Pro tein Protein/Creatinin Ratio Protein/Creat Rati o 24h U Random a-1-Globu nikita % U Random a-2-Globu nikita % U Random Beta Glob ulin U Random Gamma Amanda b U Abnormal Prot Ba nd 1 U Abnormal Prot Ba nd 2 U Abnormal Prot Ba nd 3 Urine PEP Interpre t Serum Immunofixati on Free [place] C hains Free Lambda Light Chain Free [place]/Lambda Ratio 05/07/20 05/06/20 05/06/20 11:27 05:28 05:28 WBC RBC Hgb Hct MCV MCH MCHC RDW Plt Count MPV Neut % (Auto) Lymph % (Auto) [place] % (Auto) Eos % (Auto) Baso % (Auto) Neut # (Auto) Lymph # (Auto) Wheeler # (Auto) Eos # (Auto) Baso # (Auto) Nucleated RBC % (a uto) Nucleated RBCs # Sodium Potassium Chloride Carbon Dioxide Anion Gap BUN Creatinine GFR Calculation Glucose POC Glucose 198 Calculated Osmolal ity Calcium Phosphorus Magnesium Total Bilirubin AST ALT Alkaline Phosphata se Total Protein Albumin Globulin Iqrt-8-Gefecpfeqxb in 5.20 H Ur Random Creatini ne Ur Random Albumin U Random Total Pro tein Protein/Creatinin Ratio Protein/Creat Rati o 24h U Random a-1-Globu nikita % U Random a-2-Globu nikita % U Random Beta Glob ulin U Random Gamma Amanda b U Abnormal Prot Ba nd 1 U Abnormal Prot Ba nd 2 U Abnormal Prot Ba nd 3 Urine PEP Interpre t Serum Immunofixati on See note Free [place] Light C hains Free Lambda Light Chain Free [place]/Lambda Ratio 05/06/20 05/05/20 05:28 19:30 WBC RBC Hgb Hct MCV MCH MCHC RDW Plt Count MPV Neut % (Auto) Lymph % (Auto) [place] % (Auto) Eos % (Auto) Baso % (Auto) Neut # (Auto) Lymph # (Auto) Wheeler # (Auto) Eos # (Auto) Baso # (Auto) Nucleated RBC % (a uto) Nucleated RBCs # Sodium Potassium Chloride Carbon Dioxide Anion Gap BUN Creatinine GFR Calculation Glucose POC Glucose Calculated Osmolal ity Calcium Phosphorus Magnesium Total Bilirubin AST ALT Alkaline Phosphata se Total Protein Albumin Globulin Bdvb-0-Dzcononrkfy in Ur Random Creatini ne 93 Ur Random Albumin 44 U Random Total Pro tein 166 H Protein/Creatinin Ratio 1785 H Protein/Creat Rati o 24h 1.785 H U Random a-1-Globu nikita % 4 U Random a-2-Globu nikita % 11 U Random Beta Glob ulin 11 U Random Gamma Amanda b 30 U Abnormal Prot Ba nd 1 14 H U Abnormal Prot Ba nd 2 Not Reportable U Abnormal Prot Ba nd 3 Not Reportable Urine PEP Interpre t See note Serum Immunofixati on Free [place] C hains 69.5 H Free Lambda Light Chain 68.4 H Free [place]/Lambda Ratio 1.02 Vitals: Last Vital Signs Temp 98.7 F 05/08/20 11:05 Pulse 81 05/08/20 11:05 Resp 20 H 05/08/20 11:05 BP 123/69 05/08/20 11:05 Pulse Ox 95 05/08/20 11:05 Discharge Plan Discharge Patient Disposition: Xfer SNF Condition: Stable Prescriptions: Continued Colace Clear 50 mg capsule 50 mg PO DAILY RF: 0 metoprolol tartrate 50 mg tablet 50 mg PO DAILY RF: 0 potassium chloride 20 mEq tablet extended release 20 meq PO BID Qty: 180 RF: 3 metformin 500 mg tablet extended release 24 hr 1,000 mg PO DAILY RF: 0 atorvastatin 10 mg tablet 10 mg PO DAILY RF: 0 amlodipine 10 mg tablet 10 mg PO DAILY RF: 0 montelukast [Singulair] 10 mg tablet 10 mg PO DAILY RF: 0 Humulin N NPH U-100 Insulin 100 unit/mL suspension See Rx Instructions SUBCUT BID RF: 0 insulin lispro [Humalog U-100 Insulin] 100 unit/mL solution See Rx Instructions SUBCUT TID RF: 0 Toujeo Max U-300 SoloStar 300 unit/mL (3 mL) insulin pen 100 unit SUBCUT .QHS RF: 0 Bydureon 2 mg/0.65 mL pen injector 2 mg SUBCUT .WEEKLY RF: 0 hydrocodone-acetaminophen 10-325 mg tablet 1 tab PO .five daily PRN (Reason: pain) 30 Days Qty: 150 RF: 0 Hold Instructions: Home Medication placed on hold at Doctor's office Abilify 10 mg tablet 10 mg PO QAM Qty: 90 RF: 2 venlafaxine [Effexor XR] 75 mg capsule,extended release 24hr 75 mg PO QAM Qty: 90 RF: 2 venlafaxine [Effexor XR] 150 mg capsule,extended release 24hr 150 mg PO QAM Qty: 90 RF: 2 isosorbide mononitrate 30 mg tablet extended release 24 hr 30 mg PO DAILY Qty: 90 RF: 3 pantoprazole 40 mg Tablet,Delayed Release (Dr/Ec) 40 mg PO DAILY RF: 0 Eliquis 5 mg tablet 5 mg PO DAILY RF: 0 trazodone 100 mg tablet 100 - 200 mg PO .bedtime PRN (Reason: sleep) RF: 0 Changed furosemide 40 mg tablet 20 mg PO BID 90 Days Qty: 180 RF: 3 Discontinued losartan-hydrochlorothiazide 100-25 mg tablet 1 tab PO DAILY RF: 0 sulfamethoxazole-trimethoprim [Bactrim DS] 800-160 mg tablet 1 tab PO BID 5 Days Qty: 10 RF: 0 methylprednisolone [Medrol (Daniel)] 4 mg tablets,dose pack See Rx Instructions .ROUTE .COMPLEX Qty: 21 RF: 0 Discharge Orders: Discharge Order (Routine); Ordered 05/08/20 Ordered By: Shantell Cuba Other Ambulatory Orders: Miscellaneous Test (Routine) Timeframe: 1 Week Facility: [facility] - Location: Lab - Main Lab Ordered By: Shantell Cuba Referrals: [facility] [Outside] Sergio Johnson MD [Hospitalist] - 2 weeks (abdominal lymphadenopathy) Discharge Diet: Usual diet Discharge Activity: As per PT/OT instructions Activity Restrictions/Additional Instructions: please continue oxygen at 3L NC. titrate to keep o2 sat at or above 92% Discharge Date/Time: 05/08/20 14:45 Discharge Attestations Time Spent in Discharge Care*: greater than 30 min Specific Discharge Activities: Specific discharge activities: educating and/or supporting family/caregiver, discussing with pcp/other providers and discussing with upper caser/social workers/dc planners Quality Metrics Clinical Quality Measures During this hospital stay, did patient experience: None Coding Level of Care Code Acute Bending Machine Operator for Chg Fwd Diagnoses Lymphadenopathy, periaortic R59.0 UTI (urinary tract infection) N30.01 Hematuria presence: with hematuria Urinary tract infection type: acute cystitis Chronic low back pain M54.5; G89.29 Diastolic heart failure I50.32 Heart failure chronicity: chronic HTN (hypertension) I10 Hypertension type: essential hypertension Diabetes E11.9 Generalized anxiety disorder F41.1 Dehydration E86.0 Multiple falls R29.6 Lumbar radiculopathy, acute M54.16 Lumbar disc disease M51.9 Spinal stenosis M48.00 FAYE (acute kidney injury) N17.9 Hypoxia R09.02
== END 2020-05-08 14:45 | disposition skilled nursing facility (03) | DRG 815 ==
LOC: ER 14:46 → CSU 05-06 09:40 → MEDSURG 05-06 09:40
PROVIDERS: Admitting Provider Family Medicine; Emergency Provider Emergency Medicine; PCP Family Medicine; Visit Provider Student in an Organized Health Care Education/Training Program
DX: R59.0 Localized enlarged lymph nodes (principal); I50.32 Chronic diastolic (congestive) heart failure; N17.9 Acute kidney failure, unspecified; N30.01 Acute cystitis with hematuria; Z66 Do not resuscitate; E11.42 Type 2 diabetes mellitus with diabetic polyneuropathy; Z89.411 Acquired absence of right great toe; Z79.4 Long term (current) use of insulin; I11.0 Hypertensive heart disease with heart failure; E78.5 Hyperlipidemia, unspecified; Z86.711 Personal history of pulmonary embolism; Z79.01 Long term (current) use of anticoagulants; G89.29 Other chronic pain; J44.9 Chronic obstructive pulmonary disease, unspecified; Z79.891 Long term (current) use of opiate analgesic; F41.1 Generalized anxiety disorder; K21.9 Gastro-esophageal reflux disease without esophagitis; F32.9 Major depressive disorder, single episode, unspecified; Z87.891 Personal history of nicotine dependence; R09.02 Hypoxemia; M48.00 Spinal stenosis, site unspecified; M54.16 Radiculopathy, lumbar region; R29.6 Repeated falls; E86.0 Dehydration
CPT/HCPCS: 12345; 36415; 36416; 51702; 70450; 71045; 72125; 72131; 74176; 76830; 76856; 80053; 80306; 80307; 80500; 81001; 82232; 82378; 82550; 82803; 82962; 83605; 83735; 83880; 83883; 84100; 84260; 84443; 84484; 85025; 85610; 86304; 87426; 93005; 93970; 94640; 96372; 96375; 97110; 97161; 97166; 97530; 97535; 99282; 99283; J0696; J1815; J1940; J2930; J7030

== ENCOUNTER 2020-05-25 07:30 | Emergency (ER) | payer MEDICARE, OTHER, SELFPAY ==
--- NOTE | 2020-05-25 07:37 | XR_ITS ---
WS: [id number] Portable AP upright chest, 05/25/2020 Clinical Data: dyspnea Comparison: Portable chest, 05/07/2020. Findings: No nodules, masses or effusions are seen. The heart is enlarged. The pulmonary vascularity is not increased. No pneumonia or pneumothorax is seen. The aortic arch and descending aorta show rosaline cification and tortuosity. Monitor leads on the chest wall. XR/XR chest 1V portable [id number] Impression: Atherosclerosis and cardiomegaly.
--- NOTE | 2020-05-25 07:39 | ECG_ITS ---
[facility] Test Date: 2020-05-25 Pat Name: Carol Bustos Department: Room: Gender: Female Manager Wellness: : 1955 Requested By: Chantell Bello Order Number: [id number] Niyah MD: Jony Keene M.D. Measurements Intervals [place] Rate: 83 P: 53 UT: 223 QRS: -15 QRSD: 103 T: 73 QT: 376 QTc: 444 Interpretive Statements SINUS RHYTHM WITH FIRST DEGREE AV BLOCK MINIMAL VOLTAGE CRITERIA FOR LVH, CONSIDER NORMAL VARIANT [MEETS CRITERIA IN ONE OF: R(aVL), S(V1), R(V5), R(V5/V6)+S(V1)] NONSPECIFIC T-WAVE ABNORMALITY Compared to ECG 05/03/2020 13:34:58 First degree AV block now present T-wave abnormality now present Myocardial infarct finding no longer present Electronically Signed On 05-25-2020 20:37:30 CDT by Jony Keene M.D. [id number]
[2020-05-25 07:40] VITALS: BP 142/61; PULSE 85; RESP 20; TEMP 36.5; O2SAT 100; BMI 38.7
--- NOTE | 2020-05-25 07:44 | ED_ITS ---
HPI - General Adult General: Chief complaint: Weakness Stated complaint: WEAKNESS/DIARRHEA/LOSS OF TASTE Time Seen by Provider: 05/25/20 07:37 History of Present Illness: HPI narrative: This patient is a 64-year-old female who presents today with multiple complaints. She says that she does not feel like herself. She said this is been going on for several weeks. She feels lightheaded and weak. She has been having bad diarrhea and occasional vomiting. She has had some shortness of breath and cough which she says is a smoker's cough . She has not had any known covert exposures. She was hospitalized at the beginning of April with back pain and on CT was noted to have some enlarged retroperitoneal lymph nodes. This started a work-up which is still underway. She also had a PE at that time and so the concern for malignancy is high. She is also diabetic. She said her blood sugars have been doing pretty well at home. She is on multiple medications for the diabetes. She has a history of heart failure. She has chronic swelling in her left leg which she says is unchanged. She denies any urinary symptoms. She denies fever. She has had anorexia and says she cannot taste her food at all. Onset (ago): week(s) (Several) Associated symptoms: Reports malaise, nausea and vomiting; Deny chest pain, dyspnea, headache(s) or rash Review of Systems General: Reports: 10 or more systems reviewed and unremarkable except in HPI and below Const: Reports: fatigue and malaise; Denies: fever(s) or chills Eyes: Denies: change in vision ENMT: Denies: odynophagia Card: Reports: swelling of feet/ankles (Chronic, unchanged); Denies: chest pain Resp: Reports: productive cough; Denies: dyspnea or non-productive cough GI: Reports: nausea, vomiting and diarrhea; Denies: abdominal pain : Denies: flank pain or difficulty voiding (Decreased urine output) Musc: Reports: back pain (Chronic) and extremity swelling (Chronic, left leg); Denies: neck pain Skin/Breast: Denies: rash Neuro: Reports: numbness in extremities (Diffuse), difficulty walking and frequent falls (None since her last hospitalization); Denies: headache(s) or weakness in extremities Christopher/Lymph: Reports: easy bruising; Denies: easy bleeding [facility] ED PFS: Medical History (Updated 06/02/20 @ 00:03 by ) Chronic low back pain Chronic pain COPD (chronic obstructive pulmonary disease) DDD (degenerative disc disease), lumbar Diabetes Diastolic heart failure Encounter for long-term opiate analgesic use Generalized anxiety disorder GERD (gastroesophageal reflux disease) HTN (hypertension) Hyperlipidemia Long-term current use of opiate analgesic Lower extremity edema Major depressive disorder, recurrent severe without psychotic features Nicotine dependence, cigarettes, uncomplicated Pain management contract signed Peripheral neuropathy Surgical History Amputation of left great toe Herniated gastric pouch, complication of bariatric surgery History of ankle surgery History of appendectomy Hx of appendectomy Hx of hernia repair Family History Mother Diabetes Hypertension Other Stroke Social History Smoking and tobacco status: former smoker Quit status (tobacco): has quit using tobacco Former quit date comment: 1 WEEK AGO Second hand smoke exposure: Yes Alcohol intake: never Lives independently: Yes Household members: other Details: ROOMMATE Marital status: / Current occupational status: disabled History of recent travel: No Physical Exam Const: COMMON NORMALS: no acute distress, patient oriented x3, no limitations and alert GENERAL APPEARANCE: cooperative and anxious; not well kempt NUTRITIONAL APPEARANCE: overweight HENMT: HEAD & SCALP: normal to inspection FACE & SINUS: normal facial exam Eye: GENERAL EYE: appearance normal, both eyes and all related structures Neck/C-Spine: COMMON NORMALS: supple, no meningeal signs and no JVD Chest: COMMONS NORMALS: normal inspection of the chest Resp: COMMON NORMALS: normal respiratory effort, No use of accessory muscles and clear to auscultation bilaterally AUSCULTATION: clear to auscultation bilaterally Cardio: COMMON NORMALS: no JVD, regular rate, regular rhythm and No murmurs present (Cardio) RATE: regular rate RHYTHM: regular rhythm GI: COMMON NORMALS: Normal to inspection, nondistended, normoactive bowel sounds present, Soft to palpation and non-tender INSPECTION: Yes normal to inspection AUSCULTATION: Yes normoactive bowel sounds PALPATION: Yes Soft to palpation Back/Pelvis: COMMON NORMALS: thoracic and lumbar spine normal to inspection Extremity: COMMON NORMALS: no calf tenderness NARRATIVE EXTREMITY EXAM: Left lower leg swollen and larger than the right. Patient says this is normal for her. Great toe has been amputated on the left foot. Neuro: COMMON NORMALS: patient oriented x3, moves all extremities, no focal motor deficits and no sensory deficits noted SENSORIUM/ORIENTATION: Yes alert MENINGEAL SIGNS: Yes no meningeal signs Psych: COMMON NORMALS: mental status grossly normal, cooperative and normal affect APPEARANCE: No well kempt Skin: COMMON NORMALS: no rashes or lesions noted and turgor normal GENERAL SKIN EXAM: no rashes or lesions noted and turgor normal Course ED course: Patient was stable in the ER. She did not have any further diarrhea or vomiting. Her blood sugar did run on the low side. We discussed that she needed to check with her doctor about adjusting her doses. Encouraged her to make sure that she was checking her blood sugar regularly and eating fr equent snacks. She was discharged home. Her COVID test here was negative but as she was complaining of some potential COVID symptoms a send out was also sent. Vital Signs: Vital signs: Vital Signs Temperature 97.7 F 05/25/20 07:40 Pulse Rate 90 05/25/20 13:31 Respiratory Rate 26 H 05/25/20 13:31 Blood Pressure 169/62 05/25/20 13:31 Pulse Oximetry 93 05/25/20 13:31 MDM - General Adult Lab Data: Labs: Lab Results 05/25/20 05/25/20 05/25/20 Range/Units 08:15 08:20 08:20 WBC 16.3 H (4.0-10.0) 10^3/ uL RBC 4.38 (4.1-5.3) 10^6/u L Hgb 12.6 (11.5-15.3) g/dL Hct 41.0 (37.0-47.0) % MCV 93.6 (81-99) fL MCH 28.8 (28.0-34.0) pg MCHC 30.7 (30.0-36.0) g/dL RDW 14.6 (12.1-15.1) % Plt Count 305 (130-400) 10^3/c mm MPV 9.6 (7.4-10.4) fL Neut % (Auto) 89.6 % Lymph % (Auto) 4.0 % Fannin % (Auto) 5.3 % Eos % (Auto) 0.2 % Baso % (Auto) 0.2 % Neut # (Auto) 14.62 H (1.8-7.7) 10^3/u L Lymph # (Auto) 0.7 L (0.8-4.8) 10^3/u L Fannin # (Auto) 0.9 (0.2-0.9) 10^3/u L Eos # (Auto) 0.0 (0.0-0.8) 10^3/u L Baso # (Auto) 0.0 (0.0-0.1) 10^3/u L Nucleated RBC % (a uto) 0 % Nucleated RBCs # 0.0 /100WBC PT 14.70 (12.1-14.9) SECO NDS INR 1.11 (0.8-1.2) Fibrinogen 544 H (174-498) mg/dL D-Dimer 2.70 H (0-0.59) ug/mIFE U Sodium (136-145) mmol/L Potassium (3.5-5.1) mmol/L Chloride (98-107) mmol/L Carbon Dioxide (22-29) mmol/L Anion Gap (5-19) BUN (8-23) mg/dL Creatinine (0.5-0.9) mg/dL GFR Calculation (90-130) mL/min Glucose (65-115) mg/dL POC Glucose 66 (70-110) mg/dL Calculated Osmolal ity (285-295) mOsm/k g Lactic Acid (0.5-2.2) mmol/L Calcium (8.5-10.5) mg/dL Ferritin (15-150) ng/mL Total Bilirubin (0.15-1.2) mg/dL AST (0-32) U/L ALT (0-33) U/L Alkaline Phosphata se (35-105) IU/L Troponin T Baselin e (0-10) ng/L Troponin T 120 Min carolyn Delta Troponin T C-Reactive Protein (0.0-4.9) mg/L NT-Pro-B Natriuret Pep (0-125) pg/mL Total Protein (6.6-8.7) g/dL Albumin (3.5-5.2) g/dL Globulin (1.3-4.6) g/dL Procalcitonin (0-0.5) ng/mL Urine Color (Yellow) Urine Appearance (CLEAR) Urine pH (5-7) Ur Specific Gravit y (1.005-1.030) Urine Protein (Negative) Urine Glucose (UA) (Normal) Urine Ketones (Negative) Urine Blood (Negative) Urine Nitrate (Negative) Urine Bilirubin (Negative) Urine Urobilinogen (Negative) mg/dL Ur Leukocyte Lida ase (Negative) Urine RBC (0-2) /hpf Urine WBC (0-5) /hpf Ur Squamous Epith Cells (0-5) /hpf Amorphous Sediment Urine Bacteria (NONE) /hpf SARS-CoV-2 RNA (RT -PCR) (NOT DETECTED) SARS-CoV-2 Ag (Rap id) (Negative) 05/25/20 05/25/20 05/25/20 Range/Units 08:20 08:20 08:20 WBC (4.0-10.0) 10^3/ uL RBC (4.1-5.3) 10^6/u L Hgb (11.5-15.3) g/dL Hct (37.0-47.0) % MCV (81-99) fL MCH (28.0-34.0) pg MCHC (30.0-36.0) g/dL RDW (12.1-15.1) % Plt Count (130-400) 10^3/c mm MPV (7.4-10.4) fL Neut % (Auto) % Lymph % (Auto) % Fannin % (Auto) % Eos % (Auto) % Baso % (Auto) % Neut # (Auto) (1.8-7.7) 10^3/u L Lymph # (Auto) (0.8-4.8) 10^3/u L Fannin # (Auto) (0.2-0.9) 10^3/u L Eos # (Auto) (0.0-0.8) 10^3/u L Baso # (Auto) (0.0-0.1) 10^3/u L Nucleated RBC % (a uto) % Nucleated RBCs # /100WBC PT (12.1-14.9) SECO NDS INR (0.8-1.2) Fibrinogen (174-498) mg/dL D-Dimer (0-0.59) ug/mIFE U Sodium 132 L (136-145) mmol/L Potassium 3.7 (3.5-5.1) mmol/L Chloride 94 L (98-107) mmol/L Carbon Dioxide 25 (22-29) mmol/L Anion Gap 16.7 (5-19) BUN 24 H (8-23) mg/dL Creatinine 1.6 H (0.5-0.9) mg/dL GFR Calculation 32.5 L (90-130) mL/min Glucose 74 (65-115) mg/dL POC Glucose (70-110) mg/dL Calculated Osmolal ity 277 L (285-295) mOsm/k g Lactic Acid 1.4 (0.5-2.2) mmol/L Calcium 9.3 (8.5-10.5) mg/dL Ferritin 116 (15-150) ng/mL Total Bilirubin 0.2 (0.15-1.2) mg/dL AST 13 (0-32) U/L ALT 7 (0-33) U/L Alkaline Phosphata se 92 (35-105) IU/L Troponin T Baselin e (0-10) ng/L Troponin T 120 Min carolyn Delta Troponin T C-Reactive Protein 74.5 H (0.0-4.9) mg/L NT-Pro-B Natriuret Pep 94 (0-125) pg/mL Total Protein 7.8 (6.6-8.7) g/dL Albumin 3.5 (3.5-5.2) g/dL Globulin 4.3 (1.3-4.6) g/dL Procalcitonin 0.23 (0-0.5) ng/mL Urine Color (Yellow) Urine Appearance (CLEAR) Urine pH (5-7) Ur Specific Gravit y (1.005-1.030) Urine Protein (Negative) Urine Glucose (UA) (Normal) Urine Ketones (Negative) Urine Blood (Negative) Urine Nitrate (Negative) Urine Bilirubin (Negative) Urine Urobilinogen (Negative) mg/dL Ur Leukocyte Lida ase (Negative) Urine RBC (0-2) /hpf Urine WBC (0-5) /hpf Ur Squamous Epith Cells (0-5) /hpf Amorphous Sediment Urine Bacteria (NONE) /hpf SARS-CoV-2 RNA (RT -PCR) (NOT DETECTED) SARS-CoV-2 Ag (Rap id) Negative (Negative) 05/25/20 05/25/20 05/25/20 Range/Units 08:20 10:35 11:13 WBC (4.0-10.0) 10^3/ uL RBC (4.1-5.3) 10^6/u L Hgb (11.5-15.3) g/dL Hct (37.0-47.0) % MCV (81-99) fL MCH (28.0-34.0) pg MCHC (30.0-36.0) g/dL RDW (12.1-15.1) % Plt Count (130-400) 10^3/c mm MPV (7.4-10.4) fL Neut % (Auto) % Lymph % (Auto) % Fannin % (Auto) % Eos % (Auto) % Baso % (Auto) % Neut # (Auto) (1.8-7.7) 10^3/u L Lymph # (Auto) (0.8-4.8) 10^3/u L Fannin # (Auto) (0.2-0.9) 10^3/u L Eos # (Auto) (0.0-0.8) 10^3/u L Baso # (Auto) (0.0-0.1) 10^3/u L Nucleated RBC % (a uto) % Nucleated RBCs # /100WBC PT (12.1-14.9) SECO NDS INR (0.8-1.2) Fibrinogen (174-498) mg/dL D-Dimer (0-0.59) ug/mIFE U Sodium (136-145) mmol/L Potassium (3.5-5.1) mmol/L Chloride (98-107) mmol/L Carbon Dioxide (22-29) mmol/L Anion Gap (5-19) BUN (8-23) mg/dL Creatinine (0.5-0.9) mg/dL GFR Calculation (90-130) mL/min Glucose (65-115) mg/dL POC Glucose (70-110) mg/dL Calculated Osmolal ity (285-295) mOsm/k g Lactic Acid (0.5-2.2) mmol/L Calcium (8.5-10.5) mg/dL Ferritin (15-150) ng/mL Total Bilirubin (0.15-1.2) mg/dL AST (0-32) U/L ALT (0-33) U/L Alkaline Phosphata se (35-105) IU/L Troponin T Baselin e 32 H (0-10) ng/L Troponin T 120 Min carolyn Cancelled 29.50 H Delta Troponin T Cancelled -2.50 L C-Reactive Protein (0.0-4.9) mg/L NT-Pro-B Natriuret Pep (0-125) pg/mL Total Protein (6.6-8.7) g/dL Albumin (3.5-5.2) g/dL Globulin (1.3-4.6) g/dL Procalcitonin (0-0.5) ng/mL Urine Color (Yellow) Urine Appearance (CLEAR) Urine pH (5-7) Ur Specific Gravit y (1.005-1.030) Urine Protein (Negative) Urine Glucose (UA) (Normal) Urine Ketones (Negative) Urine Blood (Negative) Urine Nitrate (Negative) Urine Bilirubin (Negative) Urine Urobilinogen (Negative) mg/dL Ur Leukocyte Lida ase (Negative) Urine RBC (0-2) /hpf Urine WBC (0-5) /hpf Ur Squamous Epith Cells (0-5) /hpf Amorphous Sediment Urine Bacteria (NONE) /hpf SARS-CoV-2 RNA (RT -PCR) (NOT DETECTED) SARS-CoV-2 Ag (Rap id) (Negative) 05/25/20 05/25/20 Range/Units 12:15 13:39 WBC (4.0-10.0) 10^3/ uL RBC (4.1-5.3) 10^6/u L Hgb (11.5-15.3) g/dL Hct (37.0-47.0) % MCV (81-99) fL MCH (28.0-34.0) pg MCHC (30.0-36.0) g/dL RDW (12.1-15.1) % Plt Count (130-400) 10^3/c mm MPV (7.4-10.4) fL Neut % (Auto) % Lymph % (Auto) % Fannin % (Auto) % Eos % (Auto) % Baso % (Auto) % Neut # (Auto) (1.8-7.7) 10^3/u L Lymph # (Auto) (0.8-4.8) 10^3/u L Fannin # (Auto) (0.2-0.9) 10^3/u L Eos # (Auto) (0.0-0.8) 10^3/u L Baso # (Auto) (0.0-0.1) 10^3/u L Nucleated RBC % (a uto) % Nucleated RBCs # /100WBC PT (12.1-14.9) SECO NDS INR (0.8-1.2) Fibrinogen (174-498) mg/dL D-Dimer (0-0.59) ug/mIFE U Sodium (136-145) mmol/L Potassium (3.5-5.1) mmol/L Chloride (98-107) mmol/L Carbon Dioxide (22-29) mmol/L Anion Gap (5-19) BUN (8-23) mg/dL Creatinine (0.5-0.9) mg/dL GFR Calculation (90-130) mL/min Glucose (65-115) mg/dL POC Glucose (70-110) mg/dL Calculated Osmolal ity (285-295) mOsm/k g Lactic Acid (0.5-2.2) mmol/L Calcium (8.5-10.5) mg/dL Ferritin (15-150) ng/mL Total Bilirubin (0.15-1.2) mg/dL AST (0-32) U/L ALT (0-33) U/L Alkaline Phosphata se (35-105) IU/L Troponin T Baselin e (0-10) ng/L Troponin T 120 Min carolyn Delta Troponin T C-Reactive Protein (0.0-4.9) mg/L NT-Pro-B Natriuret Pep (0-125) pg/mL Total Protein (6.6-8.7) g/dL Albumin (3.5-5.2) g/dL Globulin (1.3-4.6) g/dL Procalcitonin (0-0.5) ng/mL Urine Color Yellow (Yellow) Urine Appearance Clear (CLEAR) Urine pH 6.5 (5-7) Ur Specific Gravit y 1.005 (1.005-1.030) Urine Protein Neg (Negative) Urine Glucose (UA) Norm (Normal) Urine Ketones 1+ H (Negative) Urine Blood 2+ H (Negative) Urine Nitrate Negative (Negative) Urine Bilirubin Neg (Negative) Urine Urobilinogen Neg (Negative) mg/dL Ur Leukocyte Lida ase Negative (Negative) Urine RBC 0-4 H (0-2) /hpf Urine WBC 0-4 H (0-5) /hpf Ur Squamous Epith Cells 5-10 H (0-5) /hpf Amorphous Sediment Not Reportable Urine Bacteria Trace (NONE) /hpf SARS-CoV-2 RNA (RT -PCR) Not detected (NOT DETECTED) SARS-CoV-2 Ag (Rap id) (Negative) Discharge Plan Discharge Patient Disposition: Home Clinical Impression: Weakness generalized, Hypoglycemia, COVID-19 virus test result unknown Condition: Stable Prescriptions: No Action metoprolol tartrate 50 mg tablet 50 mg PO DAILY RF: 0 potassium chloride 20 mEq tablet extended release 20 meq PO BID Qty: 180 RF: 3 metformin 500 mg tablet extended release 24 hr 1,000 mg PO BEDTIME RF: 0 atorvastatin 10 mg tablet 10 mg PO DAILY RF: 0 amlodipine 10 mg tablet 10 mg PO DAILY RF: 0 montelukast [Singulair] 10 mg tablet 10 mg PO DAILY RF: 0 Humulin N NPH U-100 Insulin 100 unit/mL suspension See Rx Instructions .ROUTE .COMPLEX RF: 0 Toujeo Max U-300 SoloStar 300 unit/mL (3 mL) insulin pen 100 unit SUBCUT BEDTIME RF: 0 Bydureon 2 mg/0.65 mL pen injector 2 mg SUBCUT Q7D RF: 0 Abilify 10 mg tablet 10 mg PO QAM Qty: 90 RF: 2 venlafaxine [Effexor XR] 75 mg capsule,extended release 24hr 75 mg PO QAM Qty: 90 RF: 2 venlafaxine [Effexor XR] 150 mg capsule,extended release 24hr 150 mg PO QAM Qty: 90 RF: 2 isosorbide mononitrate 30 mg tablet extended release 24 hr 30 mg PO DAILY Qty: 90 RF: 3 pantoprazole 40 mg Tablet,Delayed Release (Dr/Ec) 40 mg PO DAILY RF: 0 Eliquis 5 mg tablet 5 mg PO BID RF: 0 trazodone 100 mg tablet 150 - 200 mg PO BEDTIME PRN (Reason: sleep) RF: 0 2 In 1 Stool Softener 3 - 4 tab PO PRN RF: 0 losartan-hydrochlorothiazide 100-25 mg tablet 1 tab PO DAILY RF: 0 ibuprofen 200 mg Tablet 800 mg PO PRN RF: 0 insulin lispro [Humalog KwikPen Insulin] 100 unit/mL insulin pen See Rx Instructions .ROUTE .COMPLEX RF: 0 furosemide 40 mg tablet 40 mg PO BID PRN (Reason: swelling) RF: 0 hydrocodone-acetaminophen 10-325 mg tablet 1 tab PO 5XD PRN (Reason: pain) RF: 0 Discharge Orders: Discharge Order (Routine); Ordered 05/25/20 Ordered By: Chantell Black Referrals: Bonita Villasenor MD [Primary Care Provider] - Patient Instructions: Diabetic Hypoglycemia (ED) Activity Restrictions/Additional Instructions: Follow-up with Dr. Villasenor for further instructions regarding medications. Make sure that you check your blood sugars regularly and eat a snack before bed. Discharge Date/Time: 05/25/20 13:40 Coding Level of Care Code ED Wide Area Network Engineer for Guerog Fwd Exam Comprehensive
[2020-05-25 07:46] VITALS: O2SAT 93
[2020-05-25 08:25] LABS: Glucose Point of Care 66 mg/dL (70-110)
[2020-05-25 08:27] LABS: Basophils % 0.2 %; Eosinophils % 0.2 %; Hemoglobin 12.6 g/dL (11.5-15.3); Lymphocytes # 0.7 10^3/uL (0.8-4.8); Mean Corpuscular HGB Conc 30.7 g/dL (30.0-36.0); Mean Corpuscular Hemoglobin 28.8 pg (28.0-34.0); Mean Corpuscular Volume 93.6 fL (81-99); Mean Platelet Volume 9.6 fL (7.4-10.4); Monocytes # 0.9 10^3/uL (0.2-0.9); Monocytes % 5.3 %; Neutrophils # 14.62 10^3/uL (1.8-7.7); Neutrophils % 89.6 %; Nucleated Red Blood Cells % 0 %; Platelet Count 305 10^3/cmm (130-400); Red Blood Count 4.38 10^6/uL (4.1-5.3); Red Cell Distribution Width 14.6 % (12.1-15.1); White Blood Count 16.3 10^3/uL (4.0-10.0)
[2020-05-25 08:42] LABS: INR 1.11 (0.8-1.2)
[2020-05-25 08:47] LABS: Fibrinogen 544 mg/dL (174-498)
[2020-05-25 08:51] LABS: Lactic Sepsis W/Reflex 1.4 mmol/L (0.5-2.2); Troponin(5th) Baseline 32 ng/L (0-10)
[2020-05-25 08:57] LABS: NT Pro B Type Natriuretic Pept 94 pg/mL (0-125); Procalcitonin 0.23 ng/mL (0-0.5)
[2020-05-25 09:08] LABS: Alanine Aminotransferase 7 U/L (0-33); Albumin Level 3.5 g/dL (3.5-5.2); Alkaline Phosphatase 92 IU/L (35-105); Anion Gap 16.7 (5-19); Aspartate Amino Transferase 13 U/L (0-32); Blood Urea Nitrogen 24 mg/dL (8-23); C Reactive Protein 74.5 mg/L (0.0-4.9); Calcium 9.3 mg/dL (8.5-10.5); Carbon Dioxide 25 mmol/L (22-29); Chloride 94 mmol/L (98-107); Ferritin 116 ng/mL (15-150); Globulin 4.3 g/dL (1.3-4.6); Glomerular Filtration Rate 32.5 mL/min (90-130); Glucose 74 mg/dL (65-115); Osmolality Calculated 277 mOsm/kg (285-295); Potassium 3.7 mmol/L (3.5-5.1); Sodium 132 mmol/L (136-145); Total Bilirubin 0.2 mg/dL (0.15-1.2); Total Protein 7.8 g/dL (6.6-8.7)
[2020-05-25 09:24] LABS: SARS Covid-2 Antigen Negative (Negative)
--- NOTE | 2020-05-25 09:39 | ECG_ITS ---
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 Measurements Intervals [place] Rate: 81 P: 58 RI: 226 QRS: -15 QRSD: 95 T: 67 QT: 356 QTc: 414 Interpretive Statements SINUS RHYTHM WITH FIRST DEGREE AV BLOCK Compared to ECG 05/25/2020 07:18:53 T-wave abnormality no longer present Electronically Signed On 05-25-2020 20:40:02 CDT by Jony Keene M.D. [email or web address] [facility].D.[employer]/store/NU/[id number] f
[2020-05-25] MEDS: azithromycin 500 MG in sodium chloride 0.9% 250 ML 250 MG IV (10:02)
[2020-05-25] MEDS: sodium chloride 0.9% 500 ML 999 ML IV (10:06)
[2020-05-25] MEDS: cefTRIAXone 1,000 MG in sodium chloride 0.9% (plus) 50 ML 100 MG IV (10:06)
[2020-05-25 10:12] VITALS: BP 164/72; PULSE 78; RESP 21; O2SAT 94
[2020-05-25 12:21] VITALS: BP 157/72; PULSE 90; O2SAT 95
[2020-05-25 12:44] LABS: Specific Gravity, Urine 1.005 (1.005-1.030); Urine Appearance Clear (CLEAR); Urine Color Yellow (Yellow); pH Urine 6.5 (5-7)
[2020-05-25 12:45] LABS: Add Urine Culture? No; Add Urine Microscopic? YES; Bacteria Urine TRACE /hpf; Bilirubin Urine Neg (Negative); Blood Urine 2+ (Negative); Glucose Urine UA Norm (Normal); Ketones Urine 1+ (Negative); Leukocyte Esterase Urine Negative (Negative); Nitrate Urine Negative (Negative); Protein Urine Neg (Negative); RBC Urine 0-4 /hpf (0-2); Urobilinogen Urine Neg (Negative); WBC Urine 0-4 /hpf (0-5)
[2020-05-25 13:31] VITALS: BP 169/62; PULSE 90; RESP 26; O2SAT 93
[2020-05-27 17:23] LABS: Quest SARS-CoV-2 RNA NOT DETECTED (NOT DETECTED)
== END 2020-05-25 13:40 | disposition home or self-care (01) ==
PROVIDERS: Emergency Provider Emergency Medicine; PCP Family Medicine
DX: R53.1 Weakness (principal); E11.649 Type 2 diabetes mellitus with hypoglycemia without coma; Z20.828 Contact with and (suspected) exposure to other viral communicable diseases; Z79.4 Long term (current) use of insulin; Z79.01 Long term (current) use of anticoagulants; Z87.891 Personal history of nicotine dependence; J44.9 Chronic obstructive pulmonary disease, unspecified; I11.0 Hypertensive heart disease with heart failure; I50.30 Unspecified diastolic (congestive) heart failure; E78.5 Hyperlipidemia, unspecified
CPT/HCPCS: 12345; 36415; 36416; 71045; 80053; 81001; 82728; 82962; 83605; 83880; 84145; 84484; 85025; 85378; 85384; 85610; 86140; 87426; 87635; 93005; 96365; 96367; 99284; J0456; J0696; J7040; J7050

== ENCOUNTER 2020-06-01 10:48 | Emergency (ER) | payer MEDICARE, OTHER, SELFPAY ==
[2020-06-01] VITALS (16 sets, daily range): BP systolic 77–189; BP diastolic 58–100; PULSE 82–117; RESP 16–31; TEMP 37; O2SAT 93–100; BMI 45.1
[2020-06-01] MEDS: vecuronium 10 mg SDV IVP (10:58)
--- NOTE | 2020-06-01 11:06 | CT_ITS ---
WS: [id number] CT HEAD NONCONTRAST HISTORY: AMS TECHNIQUE: Contiguous axial imaging performed through the brain in 2.5 mm imaging. Bone and soft tiss ue windows. Sagittal and coronal reformats reviewed. All CT scans at [facility] use at ast one of these dose optimization techniques: automated exposure control; mA and/or kV adjustment pe r patient size (includes targeted exams where dose is matched to clinical indication); or iterative r econstruction. DLP: 830.57 mGy.cm COMPARISON: 05/05/2020 No acute intracranial hemorrhage, midline shift or mass effect. Mild atrophy and mild chronic microvascular ischemic disease. Prior LEFT thalamic lacunar infarct is stable. Ventricles: Normal size with no hydrocephalus. No inferior displacement of the cerebellar tonsils. Patient is intubated. Paranasal sinuses: Moderate mucoperiosteal thickening in the ethmoid and maxillary sinuses and spheno id sinus. Focal area of scalp thickening over the LEFT parietal bone was also present on the prior st udy. Mastoid air cells: Well pneumatized. Calvarium and scalp: Skull is intact with no soft tissue edema or swelling. CT/CT head wo con* [id number] IMPRESSION: 1. No acute intracranial hemorrhage or edema. 2. Prior LEFT thalamic lacunar infarct. 3. Pansinusitis. 4. Mild cerebral atrophy and chronic ischemic disease.
--- NOTE | 2020-06-01 11:06 | XR_ITS ---
WS: [id number] Portable AP supine chest, 06/01/2020 Clinical Data: intubation Comparison: Portable chest, 05/25/2020. Findings: The endotracheal tube is above the alisia. The patient is rotated. Bilateral parenchymal op acities are present and the patient may have bilateral pneumonia. Some of the opacity may be secondar y to pulmonary vascular and enlargement. Because of rotation the heart size appears large but may be normal. Monitor leads are on the right side of the chest. XR/XR chest 1V portable [id number] Impression: 1. Endotracheal tube above the alisia. 2. Bilateral parenchymal opacities which may represent pneumonia. 3. Cardiomegaly.
--- NOTE | 2020-06-01 11:06 | ECG_ITS ---
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 Measurements Intervals [place] Rate: 116 P: 66 CO: 201 QRS: -10 QRSD: 94 T: 109 QT: 286 QTc: 399 Interpretive Statements SINUS TACHYCARDIA SEPTAL MYOCARDIAL INFARCTION [40+ ms Q WAVE IN V1/V2], PROBABLY OLD MODERATE T-WAVE ABNORMALITY, CONSIDER LATERAL ISCHEMIA [-0.1+ mV T WAVE IN I/aVL/V5/V6] Compared to ECG 05/25/2020 10:00:07 Myocardial infarct finding now present T-wave abnormality now present Possible ischemia now present Sinus rhythm no longer present First degree AV block no longer present Electronically Signed On 06-01-2020 18:49:40 CDT by Oleg Delarosa M.D. [email or web address]/store/[id number] f
[2020-06-01 11:25] LABS: ABG PH Result 7.36 (7.35-7.45); Arterial Blood Gas Hematocrit 41.7 % (37-47); Base Excess ABG 3.5 mmol/L (-2.0-2.0); Blood Gas Allen Test Pos; Blood Gas Operator Identificat ED; Blood Gas Sample Site Radial, left; Blood Gas Sample Type Arterial; Blood Gas Tidal Volume 0.45; HCO3 ABG 30.1 mmol/L (22-26); Oxygen Device VENT
[2020-06-01] MEDS: propofol 1,000 MG/100 ML INJ 7.6 MG IV (11:37)
[2020-06-01] MEDS: fentaNYL 50 mcg/mL INJ 2mL 100 MCG IVP (11:47)
--- NOTE | 2020-06-01 12:43 | PC.NURSE ---
Pt's BP dropping to 77/58, unable to obtain additional IV access, Dr. Black notified. IV bolus initiated with NS and pressure bag.
[2020-06-01] MEDS: sodium chloride 0.9% 500 ML 999 ML IV ×2 (12:50→15:06)
[2020-06-01] MEDS: sodium chloride 0.9% 1,000 ML 999 ML IV (12:50)
--- NOTE | 2020-06-01 13:06 | ECG_ITS ---
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 Measurements Intervals [place] Rate: 103 P: 35 NJ: 168 QRS: -6 QRSD: 88 T: 81 QT: 316 QTc: 415 Interpretive Statements SINUS TACHYCARDIA SEPTAL MYOCARDIAL INFARCTION , PROBABLY OLD [40+ ms Q WAVE IN V1/V2] Compared to ECG 06/01/2020 11:03:29 T-wave abnormality no longer present Possible ischemia no longer present Myocardial infarct finding still present Electronically Signed On 06-01-2020 19:20:05 CDT by Oleg Delarosa M.D. [email or web address] Solutionshighland community hospitalLinkpassmemorial [facility].[employer]/store/OM/[id number]
[2020-06-01 13:11] LABS: Basophils % 0.1 %; Eosinophils % 0.1 %; Hematocrit 36.7 % (37.0-47.0); Hemoglobin 11.2 g/dL (11.5-15.3); Lymphocytes # 0.6 10^3/uL (0.8-4.8); Lymphocytes % 2.6 %; Mean Corpuscular HGB Conc 30.5 g/dL (30.0-36.0); Mean Corpuscular Hemoglobin 28.1 pg (28.0-34.0); Mean Corpuscular Volume 92.2 fL (81-99); Mean Platelet Volume 9.6 fL (7.4-10.4); Monocytes # 1.1 10^3/uL (0.2-0.9); Monocytes % 4.7 %; Neutrophils # 21.32 10^3/uL (1.8-7.7); Neutrophils % 91.9 %; Nucleated Red Blood Cells % 0 %; Platelet Count 240 10^3/cmm (130-400); Red Blood Count 3.98 10^6/uL (4.1-5.3); Red Cell Distribution Width 14.3 % (12.1-15.1); White Blood Count 23.2 10^3/uL (4.0-10.0)
[2020-06-01 13:15] LABS: INR 1.11 (0.8-1.2)
[2020-06-01 13:27] LABS: Lactic Sepsis W/Reflex 1.6 mmol/L (0.5-2.2)
[2020-06-01 13:28] LABS: Troponin(5th) Baseline 58 ng/L (0-10)
[2020-06-01 13:34] LABS: NT Pro B Type Natriuretic Pept 307 pg/mL (0-125); Procalcitonin 0.49 ng/mL (0-0.5)
[2020-06-01 13:41] LABS: Add Urine Microscopic? YES; Bilirubin Urine Neg (Negative); Blood Urine 3+ (Negative); Glucose Urine UA Norm (Normal); Ketones Urine Negative (Negative); Leukocyte Esterase Urine Negative (Negative); Nitrate Urine Negative (Negative); Protein Urine 3+ (Negative); Urine Appearance SL Hazy (CLEAR); Urine Color Yellow (Yellow); Urobilinogen Urine Neg (Negative); pH Urine 7 (5-7)
[2020-06-01 13:45] LABS: Alanine Aminotransferase 9 U/L (0-33); Albumin Level 2.7 g/dL (3.5-5.2); Alkaline Phosphatase 85 IU/L (35-105); Aspartate Amino Transferase 15 U/L (0-32); Blood Urea Nitrogen 19 mg/dL (8-23); Calcium 8.4 mg/dL (8.5-10.5); Carbon Dioxide 25 mmol/L (22-29); Chloride 105 mmol/L (98-107); Globulin 3.1 g/dL (1.3-4.6); Glucose 134 mg/dL (65-115); Magnesium 2.1 mg/dL (1.7-2.3); Osmolality Calculated 290 mOsm/kg (285-295); Sodium 138 mmol/L (136-145); Total Bilirubin 0.2 mg/dL (0.15-1.2); Total Protein 5.8 g/dL (6.6-8.7)
[2020-06-01 13:45] LABS: Add Urine Culture? Yes; Bacteria Urine 1+ /hpf; Mucus Urine 2+ /hpf; RBC Urine 50-80 /hpf (0-2); Transitional Epi Cells Urine 0-4 /hpf; WBC Urine 0-4 /hpf (0-5)
[2020-06-01 13:50] LABS: SARS Covid-2 Antigen Negative (Negative)
[2020-06-01 13:56] LABS: Acetaminophen < 5.0 ug/mL (10-30); Alcohol Level < 10 mg/dL (0-10); Creatinine Clr Calc Pharmacy 70.4584; Salicylate < 0.3 mg/dL (3-10)
[2020-06-01 14:57] LABS: Troponin 5 2HR 75.21 ng/L (0-10)
[2020-06-01 15:03] LABS: Troponin 5 2HR Delta 17.21 ABS# (0-10)
[2020-06-01 15:23] LABS: Amphetamines Screen Urine Negative (Negative); Barbiturates Screen Urine Negative (Negative); Benzodiazepines Screen Urine Negative (Negative); Cocaine Screen Urine Negative (Negative); Opiate Screen Urine Positive (Negative); PCP Screen Urine Negative (Negative); THC Screen Urine Negative (Negative)
--- NOTE | 2020-06-01 17:06 | ECG_ITS ---
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 Measurements Intervals [place] Rate: 89 P: 53 MN: 199 QRS: -7 QRSD: 86 T: 73 QT: 348 QTc: 425 Interpretive Statements SINUS RHYTHM SEPTAL MYOCARDIAL INFARCTION , PROBABLY OLD [40+ ms Q WAVE IN V1/V2] Compared to ECG 06/01/2020 13:55:57 Sinus tachycardia no longer present Myocardial infarct finding still present Electronically Signed On 06-01-2020 18:56:05 CDT by Oleg Delarosa M.D. [email or web address] regional hospitalMcL[facility].[employer]/store/OM/[id number]
[2020-06-01] MEDS: propofol 1,000 MG/100 ML INJ 15.2 MG IV (17:31)
--- NOTE | 2020-06-01 18:06 | W.ED.AMS ---
HPI - Altered Mental Status General: Chief Complaint: Altered Mental Status Stated Complaint: ALOC/Low BS Time Seen by Provider: 06/01/20 11:05 History of Present Illness: HPI narrative: This patient is a 64-year-old female who presents today with altered mental status. 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 He said that last night she went to bed a little early, about 830. She seemed to be sleeping fine throughout the night. This morning she did get up at her usual hour about 9:00. He checked on her and she seemed to be breathing normally and just sleeping at that time. At 10:00 he went to check on her again because it was strange that she was still not awake. Got her half off the bed, foaming at the mouth, snoring with her eyes open and staring. She was unresponsive. He checked her blood sugar and it was 118. EMS was called and brought her in. They did give her a dose of glucagon as family said that is a low blood sugar for her. They did not really feel like this changed her mental status. On arrival to the ER she is snoring and unable to protect her airway. She was seen here a few days ago with a couple of weeks of not feeling well and having diarrhea. At that time her blood sugars were somewhat low as well. The boyfriend said they have been checking her blood sugars more frequently and she is been eating more. He said her blood sugar was not low last night but has been low in the mornings a few times. complaint: altered mental status and decreased responsiveness Onset (ago): unknown Timing confirmed by: caregiver Severity: severe Consistency of symptoms: Constant Context: diabetes Review of Systems General: Reports: ROS unobtainable due to mental status Musc: Denies: back pain FOR[facility] ED PFSH: Medical History (Updated 06/02/20 @ 00:03 by ) Chronic low back pain Chronic pain COPD (chronic obstructive pulmonary disease) DDD (degenerative disc disease), lumbar Diabetes Diastolic heart failure Encounter for long-term opiate analgesic use Generalized anxiety disorder GERD (gastroesophageal reflux disease) HTN (hypertension) Hyperlipidemia Long-term current use of opiate analgesic Lower extremity edema Major depressive disorder, recurrent severe without psychotic features Nicotine dependence, cigarettes, uncomplicated Pain management contract signed Peripheral neuropathy Surgical History Amputation of left great toe Herniated gastric pouch, complication of bariatric surgery History of ankle surgery History of appendectomy Hx of appendectomy Hx of hernia repair Family History Mother Diabetes Hypertension Other Stroke Social History Smoking and tobacco status: former smoker Quit status (tobacco): has quit using tobacco Former quit date comment: 1 WEEK AGO Second hand smoke exposure: Yes Alcohol intake: never Lives independently: Yes Household members: other Details: ROOMMATE Marital status: / Current occupational status: disabled History of recent travel: No Physical Exam HENMT: HEAD & SCALP: normal to inspection FACE & SINUS: normal facial exam Eye: CONJUNCTIVA: Yes conjunctival abnormal (Injected bilaterally) Neck/C-Spine: COMMON NORMALS: supple and no meningeal signs Chest: COMMONS NORMALS: normal inspection of the chest Resp: EFFORT & INSPECTION: Yes tachypneic, Yes respiratory distress, Yes labored and Yes other (Snoring) Cardio: COMMON NORMALS: regular rate, regular rhythm and No murmurs present (Cardio) RATE: regular rate RHYTHM: regular rhythm GI: COMMON NORMALS: Normal to inspection, nondistended, normoactive bowel sounds present, Soft to palpation and non-tender INSPECTION: Yes normal to inspection AUSCULTATION: Yes normoactive bowel sounds PALPATION: Yes Soft to palpation Back/Pelvis: COMMON NORMALS: thoracic and lumbar spine normal to inspection Extremity: COMMON NORMALS: normal to inspection Neuro: KIRA COMA SCALE: document GCS findings Tryon coma scale eye opening: None Tryon coma scale verbal response: Sounds Kira coma scale motor response: None Kira coma scale total score: 4 MENINGEAL SIGNS: Yes no meningeal signs Psych: COMMON NORMALS: mental status grossly normal, cooperative and normal affect Skin: NARRATIVE SKIN EXAM: Sore on the right second toe, several toe amputations. RASHES: rashes noted (Candidal rash under the breasts and pannus) Urinary Catheter Management^: [place]: Cath Placed During This Visit: yes Urinary Catheter Date of Insertion: 06/01/20 Urinary Catheter Time of Insertion: 11:45 Procedures Intubation Time out performed: Yes sedative: Etomidate paralytic: Vecuronium Laryngoscope: fiber optic video scope ET Tube Size: 8 ET Tube Uncuffed: No Tube Secured Depth (cm): 24 Tube Placement Confirmation: visualized tube passing through cords, equal breath sounds bilaterally, no breath sounds over epigastrium and confirmation by capnometry Patient Tolerated Procedure: well Intubation Complications: difficult intubation (First attempt was done with a #3 MAC blade and I was unable to visualize cords. With the fiberoptic glide scope it was a straightforward intubation.) Course ED course: Clinically I am concerned that this patient had a seizure. I am not sure that she is not continuing to have some seizure activity. She is loaded with Keppra and on a propofol drip currently. No further seizure activity has been visualized. CT the head was unremarkable for any acute disease. Labs are unremarkable other than an elevated white count which could be related to seizure activity. Blood sugars have been monitored and have not been dangerously low. The hospitalist here do not want to admit her because they feel like she needs a neurology consult and potentially continuous EEG monitoring. We are unable to do that here. We will not have a neurologist plastic surgeon this weekend. I called for transfer to [facility] in [facility], none have been able to accept her for various reasons. We will continue to try. I spoke again with the hospitalist here and they still do not feel comfortable admitting her. She is going on her ninth hour in the ER at this time. Reevaluation(s): Reevaluation #1: Patient was accepted to [facility] to their ICU. She is been fairly stable for the last several hours and is ready for transport. Her blood sugar did drift down and I started her on a D5 drip. Vital Signs: Vital signs: Vital Signs Temperature 98.6 F 06/01/20 10:49 Pulse Rate 101 H 06/01/20 23:02 Respiratory Rate 22 H 06/01/20 23:02 Blood Pressure 161/82 06/01/20 23:02 Pulse Oximetry 97 06/01/20 23:02 MDM - Altered Mental Status Lab Data: Labs: Lab Results 06/01/20 06/01/20 06/01/20 Range/Units 11:14 12:50 12:50 WBC (4.0-10.0) 10^3/ uL RBC (4.1-5.3) 10^6/u L Hgb (11.5-15.3) g/dL Hct (37.0-47.0) % MCV (81-99) fL MCH (28.0-34.0) pg MCHC (30.0-36.0) g/dL RDW (12.1-15.1) % Plt Count (130-400) 10^3/c mm MPV (7.4-10.4) fL Neut % (Auto) % Lymph % (Auto) % [place] % (Auto) % Eos % (Auto) % Baso % (Auto) % Neut # (Auto) (1.8-7.7) 10^3/u L Lymph # (Auto) (0.8-4.8) 10^3/u L [place] # (Auto) (0.2-0.9) 10^3/u L Eos # (Auto) (0.0-0.8) 10^3/u L Baso # (Auto) (0.0-0.1) 10^3/u L Nucleated RBC % (a uto) % Nucleated RBCs # /100WBC PT (12.1-14.9) SECO NDS INR (0.8-1.2) Specimen Type Arterial Sample Site Radial, left ABG pH 7.36 (7.35-7.45) ABG pCO2 53.0 H (35-45) mmHg ABG pO2 124.0 H (80.0-100.0) mmH g ABG HCO3 30.1 H (22-26) mmol/L ABG Base Excess 3.5 H (-2.0-2.0) mmol/ L Rigoberto Test Pos Hematocrit 41.7 (37-47) % O2 Delivery Device Vent FiO2 100.0 % Tidal Volume 0.45 PEEP 8.0 cmH20 Deputy Chief Executive ID Ed Sodium 138 (136-145) mmol/L Potassium 5.0 (3.5-5.1) mmol/L Chloride 105 (98-107) mmol/L Carbon Dioxide 25 (22-29) mmol/L Anion Gap 13.0 (5-19) BUN 19 (8-23) mg/dL Creatinine 1.1 H (0.5-0.9) mg/dL GFR Calculation 50.0 L (90-130) mL/min Glucose 134 H (65-115) mg/dL POC Glucose (70-110) mg/dL Calculated Osmolal ity 290 (285-295) mOsm/k g Lactic Acid (0.5-2.2) mmol/L Calcium 8.4 L (8.5-10.5) mg/dL Magnesium 2.1 (1.7-2.3) mg/dL Total Bilirubin 0.2 (0.15-1.2) mg/dL AST 15 (0-32) U/L ALT 9 (0-33) U/L Alkaline Phosphata se 85 (35-105) IU/L Troponin T Baselin e 58 H (0-10) ng/L Troponin T 120 Min [place] (0-10) ng/L Delta Troponin T (0-10) ABS# Troponin T Hi Sens 6Hr (0-10) ng/L Troponin T Hi Sens 6Hr Delta (0-12) ng/L NT-Pro-B Natriuret Pep 307 H (0-125) pg/mL Total Protein 5.8 L (6.6-8.7) g/dL Albumin 2.7 L (3.5-5.2) g/dL Globulin 3.1 (1.3-4.6) g/dL Procalcitonin 0.49 (0-0.5) ng/mL Urine Color (Yellow) Urine Appearance (CLEAR) Urine pH (5-7) Ur Specific Gravit y (1.005-1.030) Urine Protein (Negative) Urine Glucose (UA) (Normal) Urine Ketones (Negative) Urine Blood (Negative) Urine Nitrate (Negative) Urine Bilirubin (Negative) Urine Urobilinogen (Negative) mg/dL Ur Leukocyte Lida ase (Negative) Urine RBC (0-2) /hpf Urine WBC (0-5) /hpf Ur Squamous Epith Cells (0-5) /hpf Ur Transition Epit h Cell /hpf Amorphous Sediment Urine Bacteria (NONE) /hpf Urine Mucus /hpf Salicylates < 0.3 L (3-10) mg/dL Urine Opiates Scre en (Negative) ng/mL Acetaminophen < 5.0 L (10-30) ug/mL Ur Barbiturates Sc reen (Negative) ng/mL Ur Phencyclidine S crn (Negative) ng/mL Ur Amphetamines Sc reen (Negative) ng/mL U Benzodiazepines Scrn (Negative) ng/mL Urine Cocaine Scre en (Negative) ng/mL U Marijuana (THC) Screen (Negative) ng/mL Ethyl Alcohol < 10 (0-10) mg/dL SARS-CoV-2 Ag (Rap id) (Negative) 06/01/20 06/01/20 06/01/20 Range/Units 12:50 12:50 12:50 WBC 23.2 H (4.0-10.0) 10^3/ uL RBC 3.98 L (4.1-5.3) 10^6/u L Hgb 11.2 L (11.5-15.3) g/dL Hct 36.7 L (37.0-47.0) % MCV 92.2 (81-99) fL MCH 28.1 (28.0-34.0) pg MCHC 30.5 (30.0-36.0) g/dL RDW 14.3 (12.1-15.1) % Plt Count 240 (130-400) 10^3/c mm MPV 9.6 (7.4-10.4) fL Neut % (Auto) 91.9 % Lymph % (Auto) 2.6 % [place] % (Auto) 4.7 % Eos % (Auto) 0.1 % Baso % (Auto) 0.1 % Neut # (Auto) 21.32 H (1.8-7.7) 10^3/u L Lymph # (Auto) 0.6 L (0.8-4.8) 10^3/u L [place] # (Auto) 1.1 H (0.2-0.9) 10^3/u L Eos # (Auto) 0.0 (0.0-0.8) 10^3/u L Baso # (Auto) 0.0 (0.0-0.1) 10^3/u L Nucleated RBC % (a uto) 0 % Nucleated RBCs # 0.0 /100WBC PT 14.70 (12.1-14.9) SECO NDS INR 1.11 (0.8-1.2) Specimen Type Sample Site ABG pH (7.35-7.45) ABG pCO2 (35-45) mmHg ABG pO2 (80.0-100.0) mmH g ABG HCO3 (22-26) mmol/L ABG Base Excess (-2.0-2.0) mmol/ L Rigoberto Test Hematocrit (37-47) % O2 Delivery Device FiO2 % Tidal Volume PEEP cmH20 Deputy Chief Executive ID Sodium (136-145) mmol/L Potassium (3.5-5.1) mmol/L Chloride (98-107) mmol/L Carbon Dioxide (22-29) mmol/L Anion Gap (5-19) BUN (8-23) mg/dL Creatinine (0.5-0.9) mg/dL GFR Calculation (90-130) mL/min Glucose (65-115) mg/dL POC Glucose (70-110) mg/dL Calculated Osmolal ity (285-295) mOsm/k g Lactic Acid 1.6 (0.5-2.2) mmol/L Calcium (8.5-10.5) mg/dL Magnesium (1.7-2.3) mg/dL Total Bilirubin (0.15-1.2) mg/dL AST (0-32) U/L ALT (0-33) U/L Alkaline Phosphata se (35-105) IU/L Troponin T Baselin e (0-10) ng/L Troponin T 120 Min [place] (0-10) ng/L Delta Troponin T (0-10) ABS# Troponin T Hi Sens 6Hr (0-10) ng/L Troponin T Hi Sens 6Hr Delta (0-12) ng/L NT-Pro-B Natriuret Pep (0-125) pg/mL Total Protein (6.6-8.7) g/dL Albumin (3.5-5.2) g/dL Globulin (1.3-4.6) g/dL Procalcitonin (0-0.5) ng/mL Urine Color (Yellow) Urine Appearance (CLEAR) Urine pH (5-7) Ur Specific Gravit y (1.005-1.030) Urine Protein (Negative) Urine Glucose (UA) (Normal) Urine Ketones (Negative) Urine Blood (Negative) Urine Nitrate (Negative) Urine Bilirubin (Negative) Urine Urobilinogen (Negative) mg/dL Ur Leukocyte Lida ase (Negative) Urine RBC (0-2) /hpf Urine WBC (0-5) /hpf Ur Squamous Epith Cells (0-5) /hpf Ur Transition Epit h Cell /hpf Amorphous Sediment Urine Bacteria (NONE) /hpf Urine Mucus /hpf Salicylates (3-10) mg/dL Urine Opiates Scre en (Negative) ng/mL Acetaminophen (10-30) ug/mL Ur Barbiturates Sc reen (Negative) ng/mL Ur Phencyclidine S crn (Negative) ng/mL Ur Amphetamines Sc reen (Negative) ng/mL U Benzodiazepines Scrn (Negative) ng/mL Urine Cocaine Scre en (Negative) ng/mL U Marijuana (THC) Screen (Negative) ng/mL Ethyl Alcohol (0-10) mg/dL SARS-CoV-2 Ag (Rap id) (Negative) 06/01/20 06/01/20 06/01/20 Range/Units 13:15 13:15 13:15 WBC (4.0-10.0) 10^3/ uL RBC (4.1-5.3) 10^6/u L Hgb (11.5-15.3) g/dL Hct (37.0-47.0) % MCV (81-99) fL MCH (28.0-34.0) pg MCHC (30.0-36.0) g/dL RDW (12.1-15.1) % Plt Count (130-400) 10^3/c mm MPV (7.4-10.4) fL Neut % (Auto) % Lymph % (Auto) % [place] % (Auto) % Eos % (Auto) % Baso % (Auto) % Neut # (Auto) (1.8-7.7) 10^3/u L Lymph # (Auto) (0.8-4.8) 10^3/u L [place] # (Auto) (0.2-0.9) 10^3/u L Eos # (Auto) (0.0-0.8) 10^3/u L Baso # (Auto) (0.0-0.1) 10^3/u L Nucleated RBC % (a uto) % Nucleated RBCs # /100WBC PT (12.1-14.9) SECO NDS INR (0.8-1.2) Specimen Type Sample Site ABG pH (7.35-7.45) ABG pCO2 (35-45) mmHg ABG pO2 (80.0-100.0) mmH g ABG HCO3 (22-26) mmol/L ABG Base Excess (-2.0-2.0) mmol/ L Rigoberto Test Hematocrit (37-47) % O2 Delivery Device FiO2 % Tidal Volume PEEP cmH20 Deputy Chief Executive ID Sodium (136-145) mmol/L Potassium (3.5-5.1) mmol/L Chloride (98-107) mmol/L Carbon Dioxide (22-29) mmol/L Anion Gap (5-19) BUN (8-23) mg/dL Creatinine (0.5-0.9) mg/dL GFR Calculation (90-130) mL/min Glucose (65-115) mg/dL POC Glucose (70-110) mg/dL Calculated Osmolal ity (285-295) mOsm/k g Lactic Acid (0.5-2.2) mmol/L Calcium (8.5-10.5) mg/dL Magnesium (1.7-2.3) mg/dL Total Bilirubin (0.15-1.2) mg/dL AST (0-32) U/L ALT (0-33) U/L Alkaline Phosphata se (35-105) IU/L Troponin T Baselin e (0-10) ng/L Troponin T 120 Min [place] (0-10) ng/L Delta Troponin T (0-10) ABS# Troponin T Hi Sens 6Hr (0-10) ng/L Troponin T Hi Sens 6Hr Delta (0-12) ng/L NT-Pro-B Natriuret Pep (0-125) pg/mL Total Protein (6.6-8.7) g/dL Albumin (3.5-5.2) g/dL Globulin (1.3-4.6) g/dL Procalcitonin (0-0.5) ng/mL Urine Color Yellow (Yellow) Urine Appearance Sl hazy (CLEAR) Urine pH 7 (5-7) Ur Specific Gravit y 1.010 (1.005-1.030) Urine Protein 3+ H (Negative) Urine Glucose (UA) Norm (Normal) Urine Ketones Negative (Negative) Urine Blood 3+ H (Negative) Urine Nitrate Negative (Negative) Urine Bilirubin Neg (Negative) Urine Urobilinogen Neg (Negative) mg/dL Ur Leukocyte Lida ase Negative (Negative) Urine RBC 50-80 H (0-2) /hpf Urine WBC 0-4 H (0-5) /hpf Ur Squamous Epith Cells 5-10 H (0-5) /hpf Ur Transition Epit h Cell 0-4 /hpf Amorphous Sediment Not Reportable Urine Bacteria 1+ H (NONE) /hpf Urine Mucus 2+ /hpf Salicylates (3-10) mg/dL Urine Opiates Scre en Positive H (Negative) ng/mL Acetaminophen (10-30) ug/mL Ur Barbiturates Sc reen Negative (Negative) ng/mL Ur Phencyclidine S crn Negative (Negative) ng/mL Ur Amphetamines Sc reen Negative (Negative) ng/mL U Benzodiazepines Scrn Negative (Negative) ng/mL Urine Cocaine Scre en Negative (Negative) ng/mL U Marijuana (THC) Screen Negative (Negative) ng/mL Ethyl Alcohol (0-10) mg/dL SARS-CoV-2 Ag (Rap id) Negative (Negative) 06/01/20 06/01/20 06/01/20 Range/Units 14:26 18:59 19:09 WBC (4.0-10.0) 10^3/ uL RBC (4.1-5.3) 10^6/u L Hgb (11.5-15.3) g/dL Hct (37.0-47.0) % MCV (81-99) fL MCH (28.0-34.0) pg MCHC (30.0-36.0) g/dL RDW (12.1-15.1) % Plt Count (130-400) 10^3/c mm MPV (7.4-10.4) fL Neut % (Auto) % Lymph % (Auto) % [place] % (Auto) % Eos % (Auto) % Baso % (Auto) % Neut # (Auto) (1.8-7.7) 10^3/u L Lymph # (Auto) (0.8-4.8) 10^3/u L [place] # (Auto) (0.2-0.9) 10^3/u L Eos # (Auto) (0.0-0.8) 10^3/u L Baso # (Auto) (0.0-0.1) 10^3/u L Nucleated RBC % (a uto) % Nucleated RBCs # /100WBC PT (12.1-14.9) SECO NDS INR (0.8-1.2) Specimen Type Sample Site ABG pH (7.35-7.45) ABG pCO2 (35-45) mmHg ABG pO2 (80.0-100.0) mmH g ABG HCO3 (22-26) mmol/L ABG Base Excess (-2.0-2.0) mmol/ L Rigoberto Test Hematocrit (37-47) % O2 Delivery Device FiO2 % Tidal Volume PEEP cmH20 Deputy Chief Executive ID Sodium (136-145) mmol/L Potassium (3.5-5.1) mmol/L Chloride (98-107) mmol/L Carbon Dioxide (22-29) mmol/L Anion Gap (5-19) BUN (8-23) mg/dL Creatinine (0.5-0.9) mg/dL GFR Calculation (90-130) mL/min Glucose (65-115) mg/dL POC Glucose 89 (70-110) mg/dL Calculated Osmolal ity (285-295) mOsm/k g Lactic Acid (0.5-2.2) mmol/L Calcium (8.5-10.5) mg/dL Magnesium (1.7-2.3) mg/dL Total Bilirubin (0.15-1.2) mg/dL AST (0-32) U/L ALT (0-33) U/L Alkaline Phosphata se (35-105) IU/L Troponin T Baselin e (0-10) ng/L Troponin T 120 Min [place] 75.21 H (0-10) ng/L Delta Troponin T 17.21 H* (0-10) ABS# Troponin T Hi Sens 6Hr 91.93 H (0-10) ng/L Troponin T Hi Sens 6Hr Delta 33.93 H* (0-12) ng/L NT-Pro-B Natriuret Pep (0-125) pg/mL Total Protein (6.6-8.7) g/dL Albumin (3.5-5.2) g/dL Globulin (1.3-4.6) g/dL Procalcitonin (0-0.5) ng/mL Urine Color (Yellow) Urine Appearance (CLEAR) Urine pH (5-7) Ur Specific Gravit y (1.005-1.030) Urine Protein (Negative) Urine Glucose (UA) (Normal) Urine Ketones (Negative) Urine Blood (Negative) Urine Nitrate (Negative) Urine Bilirubin (Negative) Urine Urobilinogen (Negative) mg/dL Ur Leukocyte Lida ase (Negative) Urine RBC (0-2) /hpf Urine WBC (0-5) /hpf Ur Squamous Epith Cells (0-5) /hpf Ur Transition Epit h Cell /hpf Amorphous Sediment Urine Bacteria (NONE) /hpf Urine Mucus /hpf Salicylates (3-10) mg/dL Urine Opiates Scre en (Negative) ng/mL Acetaminophen (10-30) ug/mL Ur Barbiturates Sc reen (Negative) ng/mL Ur Phencyclidine S crn (Negative) ng/mL Ur Amphetamines Sc reen (Negative) ng/mL U Benzodiazepines Scrn (Negative) ng/mL Urine Cocaine Scre en (Negative) ng/mL U Marijuana (THC) Screen (Negative) ng/mL Ethyl Alcohol (0-10) mg/dL SARS-CoV-2 Ag (Rap id) (Negative) 06/01/20 Range/Units 21:00 WBC (4.0-10.0) 10^3/ uL RBC (4.1-5.3) 10^6/u L Hgb (11.5-15.3) g/dL Hct (37.0-47.0) % MCV (81-99) fL MCH (28.0-34.0) pg MCHC (30.0-36.0) g/dL RDW (12.1-15.1) % Plt Count (130-400) 10^3/c mm MPV (7.4-10.4) fL Neut % (Auto) % Lymph % (Auto) % [place] % (Auto) % Eos % (Auto) % Baso % (Auto) % Neut # (Auto) (1.8-7.7) 10^3/u L Lymph # (Auto) (0.8-4.8) 10^3/u L [place] # (Auto) (0.2-0.9) 10^3/u L Eos # (Auto) (0.0-0.8) 10^3/u L Baso # (Auto) (0.0-0.1) 10^3/u L Nucleated RBC % (a uto) % Nucleated RBCs # /100WBC PT (12.1-14.9) SECO NDS INR (0.8-1.2) Specimen Type Sample Site ABG pH (7.35-7.45) ABG pCO2 (35-45) mmHg ABG pO2 (80.0-100.0) mmH g ABG HCO3 (22-26) mmol/L ABG Base Excess (-2.0-2.0) mmol/ L Rigoberto Test Hematocrit (37-47) % O2 Delivery Device FiO2 % Tidal Volume PEEP cmH20 Deputy Chief Executive ID Sodium (136-145) mmol/L Potassium (3.5-5.1) mmol/L Chloride (98-107) mmol/L Carbon Dioxide (22-29) mmol/L Anion Gap (5-19) BUN (8-23) mg/dL Creatinine (0.5-0.9) mg/dL GFR Calculation (90-130) mL/min Glucose (65-115) mg/dL POC Glucose 84 (70-110) mg/dL Calculated Osmolal ity (285-295) mOsm/k g Lactic Acid (0.5-2.2) mmol/L Calcium (8.5-10.5) mg/dL Magnesium (1.7-2.3) mg/dL Total Bilirubin (0.15-1.2) mg/dL AST (0-32) U/L ALT (0-33) U/L Alkaline Phosphata se (35-105) IU/L Troponin T Baselin e (0-10) ng/L Troponin T 120 Min [place] (0-10) ng/L Delta Troponin T (0-10) ABS# Troponin T Hi Sens 6Hr (0-10) ng/L Troponin T Hi Sens 6Hr Delta (0-12) ng/L NT-Pro-B Natriuret Pep (0-125) pg/mL Total Protein (6.6-8.7) g/dL Albumin (3.5-5.2) g/dL Globulin (1.3-4.6) g/dL Procalcitonin (0-0.5) ng/mL Urine Color (Yellow) Urine Appearance (CLEAR) Urine pH (5-7) Ur Specific Gravit y (1.005-1.030) Urine Protein (Negative) Urine Glucose (UA) (Normal) Urine Ketones (Negative) Urine Blood (Negative) Urine Nitrate (Negative) Urine Bilirubin (Negative) Urine Urobilinogen (Negative) mg/dL Ur Leukocyte Lida ase (Negative) Urine RBC (0-2) /hpf Urine WBC (0-5) /hpf Ur Squamous Epith Cells (0-5) /hpf Ur Transition Epit h Cell /hpf Amorphous Sediment Urine Bacteria (NONE) /hpf Urine Mucus /hpf Salicylates (3-10) mg/dL Urine Opiates Scre en (Negative) ng/mL Acetaminophen (10-30) ug/mL Ur Barbiturates Sc reen (Negative) ng/mL Ur Phencyclidine S crn (Negative) ng/mL Ur Amphetamines Sc reen (Negative) ng/mL U Benzodiazepines Scrn (Negative) ng/mL Urine Cocaine Scre en (Negative) ng/mL U Marijuana (THC) Screen (Negative) ng/mL Ethyl Alcohol (0-10) mg/dL SARS-CoV-2 Ag (Rap id) (Negative) Critical Care Time Critical Care Time: Critical Care Time: Yes Total Critical Care Time: 60 Attestation: I provided critical care to this patient in the amount of 60 minutes. She required multiple re-evaluations during her 12-hour stay in the ER. Administer fluids, glucose, airway, antibiotic treatment for possible sepsis. Reevaluated multiple lab tests. Made multiple consultations trying to find a bed for her. Consulted with our hospitalist here several times. This critical care time is exclusive of other procedures and other patient care. Discharge Plan Discharge Patient Disposition: Xfer Short-Term Hosp Clinical Impression: Seizure Altered mental status Qualifiers: Altered mental status type: unspecified Qualified Code(s): R41.82 - Altered mental status, unspecified Condition: Stable Referrals: Bonita Villasenor MD [Primary Care Provider] - Discharge Date/Time: 06/01/20 23:07 Coding Level of Care Code ED Packer Inspector for [facility] Fwd Exam Comprehensive
[2020-06-01 19:11] LABS: Glucose Point of Care 89 mg/dL (70-110)
[2020-06-01 19:32] LABS: Troponin 5 6HR 91.93 ng/L (0-10)
[2020-06-01 19:34] LABS: Troponin 5 6HR Delta 33.93 ng/L (0-12)
[2020-06-01 21:04] LABS: Glucose Point of Care 84 mg/dL (70-110)
[2020-06-01] MEDS: dextrose 5%-sod chloride 0.45% 1,000 ML 150 ML IV (21:28)
--- NOTE | 2020-06-05 09:46 | PC.NURSE ---
Faxed final blood culture results with sensitivities to [facility] at [facility] ICU.
== END 2020-06-01 23:07 | disposition short-term general hospital (02) ==
PROVIDERS: Emergency Provider Emergency Medicine; PCP Family Medicine
DX: G40.89 Other seizures (principal); R41.82 Altered mental status, unspecified; J44.9 Chronic obstructive pulmonary disease, unspecified; E11.9 Type 2 diabetes mellitus without complications; I11.0 Hypertensive heart disease with heart failure; I50.30 Unspecified diastolic (congestive) heart failure; E78.5 Hyperlipidemia, unspecified; Z87.891 Personal history of nicotine dependence
CPT/HCPCS: 12345; 31500; 36416; 36600; 51702; 70450; 71045; 80053; 80306; 80307; 81001; 82803; 82962; 83605; 83735; 83880; 84145; 84484; 85025; 85610; 87040; 87070; 87077; 87086; 87186; 87205; 87426; 93005; 94002; 94799; 96365; 96366; 96367; 96368; 96375; 99284; 99291; J1953; J2704; J3010; J3490; J7030; J7040; J7799